=== PATIENT | male | born 1955 | race Caucasian/White ===

== ENCOUNTER → 2018-06-24 10:33 | Outpatient (CLI) | payer OTHER, SELFPAY ==
[2018-06-23 12:29] VITALS: BMI 48.1
[2018-06-24 12:43] LABS: T4 Total, Thyroxin 11.6 ug/dL (4.5-12.1)
== END ==
PROVIDERS: Family Provider Nurse Practitioner; PCP Nurse Practitioner; Referring Provider Internal Medicine Cardiovascular Disease; Visit Provider Internal Medicine Cardiovascular Disease
DX: R00.1 Bradycardia, unspecified (principal)
CPT/HCPCS: 36415; 84436; 84443

== ENCOUNTER → 2018-06-25 13:51 | Outpatient (CLI) | payer OTHER, SELFPAY ==
[2018-06-23 12:29] VITALS: BMI 48.1
== END ==
PROVIDERS: Family Provider Nurse Practitioner; PCP Nurse Practitioner; Referring Provider Internal Medicine Cardiovascular Disease; Visit Provider Internal Medicine Cardiovascular Disease
DX: R00.1 Bradycardia, unspecified (principal)
CPT/HCPCS: 93225; 93226

== ENCOUNTER → 2018-07-09 12:52 | Outpatient (CLI) | payer OTHER, SELFPAY ==
[2018-06-23 12:29] VITALS: BMI 48.1
--- NOTE | 2018-07-09 12:56 | ECHOD_ITS ---
Reason For Study: Arrhythmia Procedure This was a 2D Doppler, Color Flow transthoracic echocardiogram. Contrast injection was performed. Exam performed in department. Left Ventricle Normal LV size. Left ventricular systolic function is normal. The estimated ejection fraction is 65 %. Stage 1 diastolic dysfunction. No regional wall motion abnormalities noted. Right Ventricle Normal RV size. Normal systolic function. Atria The left atrium is moderately enlarged. Normal right atrium. Mitral Valve Normal mitral valve. Tricuspid Valve Normal tricuspid valve. Unable to estimate RV systolic pressure due to inadequate jet, pulmonary artery pressure probably normal. Aortic Valve Normal aortic valve. Pulmonic Valve The pulmonic valve is not well visualized. Great Vessels Normal aortic root. The pulmonary artery is normal size. Normal inferior vena cava. Pericardium/Pleural No pericardial effusion. Medication 22 gauge I.V. with prn adaptor inserted into right arm. Diluted definity 1.5ml given slow IV push to enhance endocardial definition. MMode/2D Measurements & Calculations LVIDd: 5.3 cm IVSd: 0.97 cm Ao root diam: 3.9 cm LVIDs: 3.2 cm LVPWd: 1.2 cm FS: 38.9 % LAV(MOD-bp): 71.8 ml LA A4 area: 27.5 cm2 RA A4 area: 14.5 cm2 LAV(MOD-bp) Indexed: 25.2 ml/m2 LAV(MOD-sp2): 53.0 ml LAV(MOD-sp4): 91.4 ml Time Measurements MV dec time: 0.27 sec Doppler Measurements & Calculations MV E max cornelius: 61.4 cm/sec Lat Peak E' Cornelius: 7.9 cm/sec Med Peak E' Cornelius: 6.1 cm/sec MV A max cornelius: 79.5 cm/sec E/E' lat: 7.8 E/E' med: 10.1 MV E/A: 0.77 MV V2 max: 93.4 cm/sec MV P1/2t max cornelius: 69.3 cm/sec Ao V2 max: 136.8 cm/sec MV max P.5 mmHg MV P1/2t: 118.6 msec Ao max P.5 mmHg MV V2 mean: 44.7 cm/sec MV dec slope: 171.2 cm/sec2 MV mean P.96 mmHg MV V2 VTI: 30.6 cm MVA(P1/2t): 1.9 cm2 LV V1 max: 107.4 cm/sec PA V2 max: 114.6 cm/sec LV V1 max P.6 mmHg Interpretation Summary Normal LV size. Left ventricular systolic function is normal. The estimated ejection fraction is 65 %. Stage 1 diastolic dysfunction. Contrast injection was performed. Ordering Physician: Roel Ocasio Referring Physician: Roel Ocasio Performed By: Scar Oliva RCS
== END ==
PROVIDERS: Family Provider Nurse Practitioner; PCP Nurse Practitioner; Referring Provider Internal Medicine Cardiovascular Disease; Visit Provider Internal Medicine Cardiovascular Disease
DX: R00.1 Bradycardia, unspecified (principal); I10 Essential (primary) hypertension
CPT/HCPCS: 93306; Q9957; C8929

== ENCOUNTER 2018-11-08 17:06 | Emergency (ER) | payer OTHER, SELFPAY ==
[2018-06-23 12:29] VITALS: BMI 48.1
[2018-11-08 17:07] VITALS: BP 165/99; PULSE 61; RESP 18; TEMP 36.3; O2SAT 97; BMI 26.8
[2018-11-08 17:20] VITALS: BP 152/90; PULSE 53; RESP 20; O2SAT 98
--- NOTE | 2018-11-08 17:31 | ED.VIS.GEN ---
History of Present Illness Chief Complaint: Lower Extremity Injury Detail of Chief Complaint: Left leg swelling Informant: Patient Onset: Days Narrative: Patient presents after scraping his left freire a couple days ago at a picnic. The anterior left lower leg now has some erythema and is painful. Leg is swollen. Patient was seen by urgent care at [facility] and advised to come be ruled out for a blood clot. He denies chest pain or shortness of breath. No prior history of clotting disorder. Past Medical History - Allergies and Home Meds Allergies/Adverse Reactions: Allergies doxazosin [From Cardura] Allergy (Intermediate, Verified 11/08/18 17:07) tired levofloxacin [From Levaquin] Allergy (Intermediate, Verified 11/08/18 17:07) tendonitis metoprolol [From Lopressor] Allergy (Intermediate, Verified 11/08/18 17:07) bradycardia amlodipine Adverse Reaction (Verified 11/08/18 17:07) edema Primary Care Physician: Winsome Jesus NP-C [Primary Care Provider] - Prior records reviewed: Yes Past Medical History: - - Reviewed Surgical History: - Smoking Status: Never smoker - Family History Maternal Family History: Family History (Last Reviewed 06/23/18 @ 14:48 by Roel Ocasio MD) Mother Heart disease Other Diabetes Hypertension Family History: Reports: Diabetes, Heart Disease, Hypertension Paternal Family History: Family History (Last Reviewed 06/23/18 @ 14:48 by Roel Ocasio MD) Mother Heart disease Other Diabetes Hypertension Family History: Reports: Diabetes, Heart Disease, Hypertension Review of Systems General: Denies: Chills, Fever ENT: Denies: Bilateral ear pain, Sore throat Cardiovascular: Denies: Chest pain Respiratory: Denies: Dyspnea Gastrointestinal: Denies: Abdominal pain, Nausea, Vomiting Musculoskeletal: Reports: Myalgias, Arthralgias, Extremity Pain Skin: Reports: Rash Neurological: Denies: Headache Hematologic: Denies: Easy bruising, Easy bleeding Allergy: Denies: Uticaria Physical Exam Vital Signs/Narrative: Vital Signs Temp Pulse Resp BP Pulse Ox 11/08/18 17:20 53 L 20 H 152/90 H 98 11/08/18 17:07 97.3 F L 61 18 165/99 H 97 Inital Vital Signs reviewed: Yes General: Well nourished, Well developed Head: Normocephalic ENT: Moist mucous membranes Cardiovascular: Bradycardia Respiratory: No distress, CTA bilaterally Abdomen: Soft, Nontender Extremities: - - 3+ edema to the bilateral lower extremities. Anterior left lower leg is mildly erythematous with the appearance of distended capillaries. No open wounds are noted. Strong distal pulses are noted. Neurological: Alert, Oriented x3, Normal Strength Psychological: Normal affect Diagnostic/Tx/Re-eval - Medical Decision Making Venous ultrasound of the left leg reveals no evidence of DVT. Patient does have erythema and warmth over the anterior freire. He will be treated with a course of doxycycline for cellulitis. ED Disposition - Plan for ED Patient: Disposition: Home or Assisted Living Diagnosis: Cellulitis Instructions: Cellulitis Prescriptions: Doxycycline 100 mg PO BID #20 capsule Referrals: Winsome Jesus NP-C [Primary Care Provider] - 1 Week
--- NOTE | 2018-11-08 18:01 | US_ITS ---
STUDY: VENOUS DOPPLER ULTRASOUND - LEFT LOWER EXTREMITY REASON FOR EXAM: Male, 63 years old. Bumped left calf TECHNIQUE: Ultrasound evaluation of the deep vein system to include hancock-scale imaging and compression was performed. Hancock-scale imaging and Doppler sonographic evaluation, including duplex spectral analysis and qualitative color flow sonography, was performed. COMPARISON: None. FINDINGS: Common Femoral Vein: Normal compression, spontaneity and augmentation. Normal color Doppler. Common Femoral Vein/Greater Saphenous Junction: Normal compression, spontaneity and augmentation. Normal color Doppler. Deep Femoral Vein: Normal compression, spontaneity and augmentation. Normal color Doppler. Femoral Proximal: Normal compression, spontaneity and augmentation. Normal color Doppler. Femoral Middle: Normal compression, spontaneity and augmentation. Normal color Doppler. Femoral Distal: Normal compression, spontaneity and augmentation. Normal color Doppler. Popliteal Vein: Normal compression, spontaneity and augmentation. Normal color Doppler. Posterior Tibial Vein: Normal compression, spontaneity and augmentation. Normal color Doppler. Peroneal Vein: Normal compression, spontaneity and augmentation. Normal color Doppler. US/Venous Duplex Imag/Limited/Uni IMPRESSION: Normal venous Doppler ultrasound of the lower extremity. Electronically Signed: Parker Pederson, at 18:43 EDT Tel , Service support ,
[2018-11-08 18:47] VITALS: BP 150/91; PULSE 89; RESP 16; O2SAT 98
== END 2018-11-08 18:49 | disposition home or self-care (01) ==
PROVIDERS: Emergency Provider Emergency Medicine; Family Provider Nurse Practitioner; PCP Nurse Practitioner
DX: L03.90 Cellulitis, unspecified (principal); Z88.1 Allergy status to other antibiotic agents
CPT/HCPCS: 93971; 99282

== ENCOUNTER → 2019-02-03 10:59 | Outpatient (CLI) | payer OTHER, SELFPAY ==
[2019-02-03 08:44] VITALS: BMI 50.3
[2019-02-03 11:42] LABS: Absolute Lymphocyte Count 2.93 X10^3/uL (0.83-4.51); Absolute Neutrophil Count 5.3 X10^3/uL (2.0-7.7); Basophil# 0.09 X10^3/uL; Eosinophil# 0.22 X10^3/uL; Eosinophils% 2.4 % (0-5); Hemoglobin 14.8 g/dL (13.0-16.5); Lymphocyte # 2.93 X10^3/ul (4.0); Lymphocyte % 31.6 % (19-41); Mean Corp Hgb Conc 32.2 g/dL (32-36); Mean Corpuscular Hgb 26.9 pg (27.0-32.0); Mean Corpuscular Volume 83.5 fL (80-94); Mean Platelet Vol. 10.3 fl (6.2-12.0); Monocyte# 0.69 X10^3/uL; Monocyte% 7.5 % (0-10); NRBC Flagged by Analyzer 0 % (0-5); Neutrophil # 5.29 X10^3/uL (2.7-7.7); Neutrophil % 57.1 % (47-70); Platelet Count 197 K/mm3 (150-450); RBC Distribution Width SD 42.8 fl (35.1-43.9); Red Blood Count 5.51 M/mm3 (4.6-6.2); White Blood Count 9.3 K/mm3 (4.4-11.0)
[2019-02-03 12:05] LABS: Anion Gap 7 (5-15); BUN 18 mg/dL (7-18); BUN/Creat Ratio 18.1 RATIO (10-20); Chloride 104 mmol/L (98-107); EST Glomerular Filtration Rate 80 mL/min (>60); Est Glom Filt Rate - Afr Amer 97 mL/min (>60); Glucose 201 mg/dL (74-106); Potassium 4.1 mmol/L (3.5-5.1); Sodium Level 139 mmol/L (136-145)
== END ==
PROVIDERS: Family Provider Nurse Practitioner; PCP Nurse Practitioner; Referring Provider Internal Medicine Cardiovascular Disease; Visit Provider Internal Medicine Cardiovascular Disease
DX: I10 Essential (primary) hypertension (principal); R06.00 Dyspnea, unspecified
CPT/HCPCS: 36415; 80048; 83880; 85025

== ENCOUNTER 2021-09-12 12:54 | Outpatient (CLI) | payer MEDICARE, OTHER, SELFPAY ==
--- NOTE | 2021-09-12 12:58 | ECHOD_ITS ---
Reason For Study: AFIB Procedure This was a 2D Doppler, Color Flow transthoracic echocardiogram. The study was technically difficult. Contrast injection was performed. Exam performed in department. Left Ventricle Normal LV size. Left ventricular systolic function is normal. The estimated ejection fraction is 60 %. No regional wall motion abnormalities noted. Right Ventricle Normal RV size. Normal systolic function. Great Vessels Normal aortic root. The pulmonary artery is normal size. Pericardium/Pleural No pericardial effusion. Medication 22 gauge I.V. with prn adaptor inserted into right arm. Diluted definity 1.5ml given slow IV push to enhance endocardial definition. MMode/2D Measurements & Calculations RVDd: 4.0 cm Ao root diam: 3.6 cm LAV(MOD-sp4): 80.8 ml SV(MOD-sp4): 84.7 ml LVAd ap4: 48.7 cm2 LVAd ap2: 28.0 cm2 LVLd ap4: 10.2 cm LVLd ap2: 6.3 cm EDV(MOD-sp4): 197.3 ml EDV(MOD-sp2): 101.7 ml EDV(sp4-el): 197.4 ml EDV(sp2-el): 106.3 ml LVAs ap4: 35.2 cm2 LVLs ap4: 9.1 cm ESV(MOD-sp4): 112.7 ml ESV(sp4-el): 115.7 ml EF(MOD-sp4): 42.9 % EF(sp4-el): 41.4 % SV(sp4-el): 81.7 ml LA A4 area: 24.6 cm2 LA dimension(2D): 5.3 cm RA A4 area: 26.0 cm2 Doppler Measurements & Calculations MV E max caitlin: 104.9 cm/sec Ao V2 max: 93.8 cm/sec LV V1 max: 81.4 cm/sec MV A max caitlin: 57.7 cm/sec Ao max P.5 mmHg LV V1 max P.7 mmHg MV E/A: 1.8 PA V2 max: 93.4 cm/sec ECHO/Echo Complete W/ Contrast Interpretation Summary Normal LV size. Left ventricular systolic function is normal. The estimated ejection fraction is 60 %. Contrast injection was performed. The study was technically limited. Ordering Physician: Princess Hagen Referring Physician: Princess Hagen Performed By: Karen Shah RCS
== END 2021-09-12 23:59 | disposition home or self-care (01) ==
PROVIDERS: PCP Internal Medicine; Referring Provider Internal Medicine; Visit Provider Internal Medicine
DX: I48.91 Unspecified atrial fibrillation (principal); R06.02 Shortness of breath
CPT/HCPCS: 93306; Q9957; A4216; C8929

== ENCOUNTER 2021-09-16 13:11 | Outpatient (RCR) | payer MEDICARE, OTHER, SELFPAY ==
[2021-09-16 13:39] LABS: International Normalized Ratio 1.2; Prothrombin Time (Protime)PT. 14.8 SECONDS (11.7-14.9)
== END 2021-09-16 23:59 | disposition home or self-care (01) ==
LOC: LAB 13:11
PROVIDERS: PCP Internal Medicine; Referring Provider Physician Assistant Medical; Visit Provider Physician Assistant Medical
DX: I48.19 Other persistent atrial fibrillation (principal); Z79.01 Long term (current) use of anticoagulants
CPT/HCPCS: 36415; 85610

== ENCOUNTER → 2021-09-20 | Outpatient (CLI) | payer MEDICARE, OTHER, SELFPAY ==
--- NOTE | 2021-09-20 09:05 | STRESSREP ---
Stress Test Report Pharmacologic myocardial perfusion stress test. 66-year-old male with a history of atrial fibrillation. Stress protocol: Resting EKG demonstrates atrial fibrillation with a rate of 85 bpm normal intervals are noted. 0.4 mg of regadenoson was infused per usual protocol followed by rapid intravenous saline flush injection continuous EKG monitoring was performed. At rest there were no ST or T wave changes noted to suggest abnormal flow reserve and at peak infusion nonspecific ST changes were noted with did not meet the criteria for ischemia. No clinical angina was noted. The peak blood pressure was 164/94 mmHg. Myocardial perfusion protocol. 14.9 mCi of technetium 99m sestamibi was injected at rest. 0.4 mg of regadenoson was infused per usual protocol. At peak infusion 44.8 mCi of technetium 99m sestamibi was injected stress images were obtained stress and rest images were reconstructed and compared in the short axis vertical long and horizontal long axis. Gated images were also obtained. Perfusion SPECT analysis: Review of the stress images demonstrate normal uptake of tracer noted in all areas of the myocardium. The resting images similarly demonstrate normal uptake of tracer noted in all areas of the myocardium. No areas of reversibility are noted to suggest ischemia and no previous infarct is noted. Gated SPECT analysis: The gated ejection fraction is 55%. Conclusion: Normal pharmacologic myocardial perfusion stress test. Preserved ejection fraction.
== END | disposition home or self-care (01) ==
LOC: CVS 06:35
PROVIDERS: PCP Internal Medicine; Referring Provider Internal Medicine; Visit Provider Internal Medicine
DX: I48.91 Unspecified atrial fibrillation (principal); R94.31 Abnormal electrocardiogram [ECG] [EKG]
CPT/HCPCS: 78452; 93017; A9500; A4216; J2785

== ENCOUNTER 2021-10-17 16:16 | Outpatient (RCR) | payer MEDICARE, OTHER, SELFPAY ==
[2021-09-25 17:12] LABS: International Normalized Ratio 2.4; Prothrombin Time (Protime)PT. 25.4 SECONDS (11.7-14.9)
[2021-10-02 10:03] LABS: International Normalized Ratio 3.6
[2021-10-11 16:19] LABS: International Normalized Ratio 3.6; Prothrombin Time (Protime)PT. 35.6 SECONDS (11.7-14.9)
[2021-10-17 17:04] LABS: International Normalized Ratio 3.3; Prothrombin Time (Protime)PT. 33.5 SECONDS (11.7-14.9)
== END 2021-10-20 01:57 | disposition home or self-care (01) ==
LOC: LAB 16:16
PROVIDERS: Internal Medicine Cardiovascular Disease; PCP Internal Medicine; Referring Provider Physician Assistant Medical; Visit Provider Physician Assistant Medical
DX: I48.19 Other persistent atrial fibrillation (principal); Z79.01 Long term (current) use of anticoagulants
CPT/HCPCS: 36415; 85610

== ENCOUNTER 2021-10-30 10:11 | Day surgery (SDC) | payer MEDICARE, OTHER, SELFPAY ==
[2021-10-29 08:24] VITALS: BMI 49.1
[2021-10-30 10:47] LABS: International Normalized Ratio 2.5; Prothrombin Time (Protime)PT. 26.4 SECONDS (11.7-14.9)
[2021-10-30 10:52] LABS: Anion Gap 8 (5-15); BUN 16 mg/dL (7-18); BUN/Creat Ratio 16.6 RATIO (10-20); Chloride 107 mmol/L (98-107); Creatinine, Serum 0.96 mg/dL (0.70-1.30); EST Glomerular Filtration Rate 83 mL/min (>60); Est Glom Filt Rate - Afr Amer 100 mL/min (>60); Estimated Creatinine Clearance 90.47 ml/min; Glucose 147 mg/dL (74-106); PSA,Total - Annual Screen 4.36 ng/mL (0.00-4.00); Potassium 3.9 mmol/L (3.5-5.1); Sodium Level 141 mmol/L (136-145)
[2021-10-30 13:16] LABS: Cholesterol 159 mg/dL (200); High Density Lipoprotein 38 mg/dL; Triglycerides 173 mg/dL; Very Low Density Lipoprotein 35 mg/dL (5-40)
--- NOTE | 2021-10-30 13:16 | PCM.OP.BLANK ---
Problems Associated Problem List Diagnoses (1) Persistent atrial fibrillation: Operative Report Date of Procedure: 10/30/21 DC cardioversion. Indication: Persistent atrial fibrillation. 66-year-old male with a history of persistent atrial fibrillation symptomatic. Informed consent was obtained the patient was brought to the cardiac catheterization in the nonsedated state. Patient was seen by Dr. Quinones of the critical care division. Anterior-posterior pads were applied. The patient was then administered 130 mg of intravenous propofol. Appropriate conscious sedation was induced. 300 J of synchronized biphasic DC cardioversion energy were applied with prompt reversal to sinus rhythm. Patient tolerated the procedure well. Conclusion: Successful DC cardioversion from atrial fibrillation to sinus rhythm. Follow-up per office protocol.
--- NOTE | 2021-10-30 13:18 | PRO.PCM_ITS ---
Procedure Report Date of Procedure: 10/30/21 CONSCIOUS SEDATION REPORT DATE OF SERVICE: October 30, 2021 BRIEF HISTORY OF PRESENT ILLNESS: The patient is a 66-year-old male who presented to [facility] for an elective outpatient cardioversion due to underlying atrial fibrillation. The patient denies any prior anesthetic complications. His last surface echocardiogram demonstrated an ejection fraction of approximately 60%. He is anticoagulated on Coumadin with an INR today of 2.5. The patient does have a known history of obstructive sleep apnea and reports compliance with the use of nocturnal CPAP therapy. In addition, he does have a history of asthma as well, which is currently controlled with outpatient inhalers. PHYSICAL EXAMINATION: VITAL SIGNS: Reviewed and were acceptable. GENERAL: The patient is a morbidly obese male, in no apparent distress, speaking in full sentences. HEENT: Normocephalic, atraumatic. Casimiro membranes are moist and pink. Good mouth opening noted. Trachea is midline. MPIII CHEST: S1, S2 irregularly irregular. No murmurs, rubs or gallops were noted. LUNGS: Clear to auscultation bilaterally without appreciable wheezes, rales or rhonchi. ABDOMEN: Soft, nontender, nondistended. Positive bowel sounds. EXTREMITIES: There is no clubbing, cyanosis or edema. ASA Class: II DESCRIPTION OF PROCEDURE: After confirmation of informed consent, the patient's anesthesia plan was reviewed in detail. Propofol was chosen. Risks and benefits were reviewed and the patient agreed to proceed. At 1304, the patient was given his first bolus of propofol. In total, the patient required 130 mg of propofol to achieve an appropriate level of sedation, after which time he was given a 300 J synchronized cardioversion by Dr. Ocasio at the bedside. This was successful in achieving normal sinus rhythm. The patient was monitored until 1319, at which time he reached his baseline mental status and function. The patient tolerated the procedure well. COMPLICATIONS: None ESTIMATED BLOOD LOSS: None RECOMMENDATIONS: Okay to recover in usual fashion. Procedures Pulmonary 9xxxx: [id number] Con Sedation
== END 2021-10-30 14:23 | disposition home or self-care (01) ==
LOC: CLSP 10:16
PROVIDERS: Physician Assistant Medical; PCP Internal Medicine; Referring Provider Internal Medicine Cardiovascular Disease; Visit Provider Internal Medicine Cardiovascular Disease
DX: I48.19 Other persistent atrial fibrillation (principal); E11.9 Type 2 diabetes mellitus without complications; G47.33 Obstructive sleep apnea (adult) (pediatric); I10 Essential (primary) hypertension; K21.9 Gastro-esophageal reflux disease without esophagitis; Z82.49 Family history of ischemic heart disease and other diseases of the circulatory system; R53.83 Other fatigue; R06.02 Shortness of breath; R42 Dizziness and giddiness; Z12.5 Encounter for screening for malignant neoplasm of prostate; E78.00 Pure hypercholesterolemia, unspecified
CPT/HCPCS: 36415; 80048; 80061; 83880; 84153; 85610; 92960; 93005; J7040; G0103

== ENCOUNTER 2021-11-14 13:28 | Outpatient (RCR) | payer MEDICARE, OTHER, SELFPAY ==
[2021-10-23 14:45] LABS: International Normalized Ratio 2.9; Prothrombin Time (Protime)PT. 29.6 SECONDS (11.7-14.9)
[2021-11-14 14:58] LABS: International Normalized Ratio 2.4; Prothrombin Time (Protime)PT. 25.5 SECONDS (11.7-14.9)
== END 2021-11-14 18:00 | disposition home or self-care (01) ==
LOC: LAB 13:28
PROVIDERS: PCP Internal Medicine; Referring Provider Physician Assistant Medical; Visit Provider Physician Assistant Medical
DX: I48.19 Other persistent atrial fibrillation (principal); Z79.01 Long term (current) use of anticoagulants
CPT/HCPCS: 36415; 85610

== ENCOUNTER 2021-11-29 10:10 | Outpatient (RCR) | payer MEDICARE, OTHER, SELFPAY ==
[2021-11-29 11:37] LABS: International Normalized Ratio 2.2; Prothrombin Time (Protime)PT. 24.2 SECONDS (11.7-14.9)
== END 2021-11-29 18:00 | disposition home or self-care (01) ==
LOC: LAB 10:10
PROVIDERS: PCP Internal Medicine; Referring Provider Physician Assistant Medical; Visit Provider Physician Assistant Medical
DX: I48.19 Other persistent atrial fibrillation (principal); Z79.01 Long term (current) use of anticoagulants
CPT/HCPCS: 36415; 85610

== ENCOUNTER → 2021-12-17 | Outpatient (CLI) | payer MEDICARE, OTHER, SELFPAY ==
--- NOTE | 2021-12-17 13:50 | RAD_ITS ---
STUDY: X-RAY - LUMBAR SPINE REASON FOR EXAM: Male, 66 years old. Back pain. TECHNIQUE: 5 view(s) of the lumbar spine were obtained. COMPARISON: 01/16/2016. FINDINGS: Osteopenia. Normal lumbar lordosis. There is no substantial scoliosis. There is a normal alignment of the vertebrae. Stable diffuse facet sclerosis. Diffuse intervertebral disc space narrowing most marked at L3-4, L4-5 and L5-S1, relatively unchanged from prior study. Vascular calcification. Phleboliths. RAD/L/S Spine Min 4 Views IMPRESSION: Stable osteopenia with diffuse [id number] lumbosacral spondylosis. No acute abnormality, evidence of erosive changes or fusion. Electronically Signed: Chao Patel, at 9:47 EDT ,
== END | disposition home or self-care (01) ==
LOC: RAD 13:36
PROVIDERS: PCP Nurse Practitioner Family; Referring Provider Nurse Practitioner Family; Visit Provider Nurse Practitioner Family
DX: M46.96 Unspecified inflammatory spondylopathy, lumbar region (principal); M51.37 Other intervertebral disc degeneration, lumbosacral region; M54.17 Radiculopathy, lumbosacral region; M47.817 Spondylosis without myelopathy or radiculopathy, lumbosacral region
CPT/HCPCS: 72110

== ENCOUNTER 2021-12-23 10:15 | Day surgery (SDC) | payer MEDICARE, OTHER, SELFPAY ==
[2021-12-23] VITALS (7 sets, daily range): BP systolic 130–157; BP diastolic 67–93; PULSE 62–67; RESP 15–16; TEMP 36.5–36.7; O2SAT 93–97; BMI 47.7
--- NOTE | 2021-12-23 10:45 | RAD_ITS ---
PROCEDURE: Caudal block. DATE OF EXAMINATION: 12/23/2021. INDICATION: Male, 66 years old. Chronic low back pain. FLUOROSCOPY TIME (if supplied): (14 seconds) minutes/seconds. 2 images were submitted. RAD/Fluor Guidance for Spine Inj IMPRESSION: Intraoperative imaging provided for caudal block. Electronically Signed: Gurinder Serna MD at 9:33 EDT ,
[2021-12-23] MEDS: Lactated Ringers 1,000 ML 15 ML IV (10:52)
[2021-12-23 11:16] LABS: Bedside Glucose 138 mg/dL (74-106)
[2021-12-23] MEDS: Lidocaine 1% (30 ml sdv) 30 ML Vial (11:30)
[2021-12-23] MEDS: 0.9% Normal Saline (Pres. free 10 ML Vial (11:30)
--- NOTE | 2021-12-23 11:33 | OP.PCM_ITS ---
Report of Operation Date of Procedure: 12/23/21 Pre-Operative Diagnosis: Lumbosacral radiculopathy, lumbosacral degenerative di sc disease, lumbosacral spinal stenosis Post-Operative Diagnosis: Lumbosacral radiculopathy, lumbosacral degenerative disc disease, lumbosacral spinal stenosis Surgery/Procedure Performed:: Caudal epidural steroid injection under fluoroscopic guidance Type of Anesthesia: MAC Estimated Blood Loss (mL): Minimal Description of Procedure: DESCRIPTION OF PROCEDURE: History and physical of today was reviewed. Risks and benefits of the procedure were explained. The patient understood and agreed to proceed. Informed consent was obtained. IV inserted per routine protocol. The patient was taken to the operating room and placed in the prone position with a pillow positioned underneath the abdomen. The lower back and tailbone area was prepped and draped in a sterile fashion using iodine x3. Under fluoroscopy guidance on a lateral view, the caudal space was identified. The skin and subcutaneous tissue was anesthetized with approximately 3 mL of 1% lidocaine using a 25-gauge regular needle. Under direct visualization with fluoroscopy, using a 22-gauge 3-1/2-inch spinal needle, the needle was advanced via the skin through the sacral hiatus. The tip of the needle was passed through the sacrococcygeal ligament and advanced to approximately S4 area. After negative aspiration of blood or CSF, a total of 3 mL of contrast was injected to confirm correct placement of the needle as well as cephalad spread. The spread was followed to approximately L5 area. After confirmation on AP as well as lateral view and repeated negative aspiration, a total of 15 mL of preservative-free 0.125% Marcaine with 80 mg of Depo-Medrol was injected easily. The needle was then removed intact. The patient experienced no sign or symptoms of intrathecal or intravascular injection. The patient experienced no paresthesia. The procedure was completed without any apparent difficulty or any complications. The patient appeared to tolerate it well. ASSESSMENT AND PLAN: This is a 66-year-old male with lumbosacral radiculopathy, lumbosacral degenerative disc disease, lumbosacral spinal stenosis status post caudal epidural steroid injection, patient will continue his current medications, patient will follow in approximately 2 weeks for reevaluation. Complications None
[2021-12-23 20:44] LABS: INR Fingerstick 1.2; Prothrombin Time Fingerstick 14.4 SEC (11.7-14.9)
[2021-12-25 08:35] LABS: INR Fingerstick 1.2; Prothrombin Time Fingerstick 14.4 SEC (11.7-14.9)
== END 2021-12-23 12:26 | disposition home or self-care (01) ==
LOC: SDC 10:19 → AC 10:21
PROVIDERS: PCP Nurse Practitioner Family; Referring Provider Anesthesiology Pain Medicine; Visit Provider Anesthesiology Pain Medicine
PROC: 3E0S3BZ Introduction of Anesthetic Agent into Epidural Space, Percutaneous Approach (ICD-10-PCS; CPT 62282; principal; 2021-12-23 11:40)
DX: M47.817 Spondylosis without myelopathy or radiculopathy, lumbosacral region (principal); M46.96 Unspecified inflammatory spondylopathy, lumbar region; I48.91 Unspecified atrial fibrillation; E11.9 Type 2 diabetes mellitus without complications; M48.07 Spinal stenosis, lumbosacral region; M51.17 Intervertebral disc disorders with radiculopathy, lumbosacral region; G47.33 Obstructive sleep apnea (adult) (pediatric); K21.9 Gastro-esophageal reflux disease without esophagitis; I10 Essential (primary) hypertension; E78.00 Pure hypercholesterolemia, unspecified; M51.37 Other intervertebral disc degeneration, lumbosacral region; Z79.899 Other long term (current) drug therapy; Z79.01 Long term (current) use of anticoagulants
CPT/HCPCS: 62323; 36416; 64483; 77003; 82962; 85610; J7120; J3490

== ENCOUNTER 2022-01-01 10:00 | Outpatient (RCR) | payer MEDICARE, OTHER, SELFPAY ==
--- NOTE | 2021-11-11 18:15 | HP.PTEVAL_ITS ---
Patient's Visit Information JONO PENA is a 66 year old M referred to Physical Therapy by Dr. Roel Ocasio MD with a diagnosis of SPINAL SENOSIS ,DORSALGIA ,CHRONIC PAIN. Date of Evaluation: 11/11/21 Physical Therapist: Serjio Gonzalez, PT, Cert MDT, OCS - Visit Plan Frequency: 2x /Week Duration: 4 Weeks Plan: PT INTERVETIONS LE FLEXABILITY ,DLS ,POSTURAL EX'S ,LUMBAR ROM AND BLE STRENGTHENING - Subjective This 66 y/o male presents to physical therapy with back pain . Patient has had lumbar pain for many years. Patient has had h/o HNP lumbar spine. Seen DR jenkins. Patient ~ 3weeks ago went to [facility] thus had cardioversion and blood thinners prior to procedure . Thus patient states cant take ibuprofrin. Patient has h/o hard work at [employer] . Retired from [employer]. Located LS lateral hip and has isolated knee pain. Description as arthritis ache Aggravating standing < 15mins ,walking affects ADL's and housework tasks. Alleviating factors sitting. Bowel/bladder -. Coughing/sneezing -. C/O paresthesia lateral leg . Patient assist with spouse with ADLS'. Patient sleeps with bi -pap. Patient condition affects QOL and function. SOCIAL: . VOCATION: retired - Pain Bilateral Back Pain Intensity (Out of 10): 5 Pain Intensity Range: 10 Bilateral Buttocks Pain Intensity (Out of 10): 5 Pain Intensity Range: 10 - Objective POSTURE: mild forward posture hip knee slightly flexed. GAIT: ambulates with mild forward posture reciprocal pattern. SYMMTRIES: align. PALAPTION: unremarkable. AROM: knee supine flexion 5 -115 degrees supine flexion ,IR hip 0 degrees ,hip flexion 100 degrees. FLEXABILITY: hams mod tight. MMT: quads/hams 4/5,hip flexion 4-/5 ,ankle 4/5 - Special Tests L/S Slump test left side: Negative L/S Slump test right side: Negative L/S Left Straight Leg Raise: Negative L/S Right Straight Leg Raise: Negative Lumbar Standing: Flexion - Mechanical Response: No effect Lumbar Standing: Flexion - Symptoms During Testing: Increases Lumbar Standing: Flexion - Symptoms After Testing: No worse Lumbar Standing: Extension - Mechanical Response: No effect Lumbar Standing: Extension - Symptoms During Testing: Increases Lumbar Standing: Extension - Symptoms After Testing: No worse Lumbar Standing: Right Side Glides - Mechanical Response: No effect Lumbar Standing: Right Side [place] - Symptoms During Testing: No effect Lumbar Standing: Right Side [place] - Symptoms After Testing: No effect Lumbar Standing: Left Side [place] - Mechanical Response: No effect Lumbar Standing: Left Side [place] - Symptoms During Testing: No effect Lumbar Standing: Left Side [place] - Symptoms After Testing: No effect - Balance/Special Test Scores Oswestry Low Back Score: 24 - Goals Goal 1:: I with HEP for back pain Goal Time Frame: 4-6 Weeks Goal 2:: Patient to improve posture/body mechanics for ADLS' 80% of the time Goal Time Frame: 4-6 Weeks Goal 3:: Patient to demonstrate 50% improvement with decrease pain and improved function with ADLS with standing Goal Time Frame: 4-6 Weeks Goal 4:: Patient to improve lumbar ROM for function of recovery to tie shoes Goal Time Frame: 4-6 Weeks Goal 5:: Patient to improve back oswestry score by 5 points to improve QOL Goal Time Frame: 4-6 Weeks - Rehabilitation Potential Physical Therapy Diagnosis: This patient has lumbar pain with stenosis pain worse with walking/standing ,along with positioning and motion testing thus benefit from skilled PT Rehabilitation Potential: Good - Anticipated Interventions Patient/Client Instruction: Educate patient on: Condition, Plan of Care For the Purpose of:: To decrease pain, To increase ROM, To improve muscle perf ormance and motor function, To improve ability to perform ADL's, To increase tolerance to activity/condition/position, To improve ability of physical actions for home/community/work/leisure, To improve gait and locomotor functions, To increase flexibility/ROM, To improve endurance, To prevent re-injury Therapeutic Exercise to Include: Strength training, Balance training, Active ROM, Dynamic Lumbar Stabilization For the Purpose of:: To decrease pain, To improve nutrient delivery to tissue, To improve muscle performance and motor function, To increase tolerance to activity/condition/position, To improve ability of physical actions for home/community/work/leisure, To improve health of tissue, To decrease soft tissue restriction, To increase flexibility/ROM, To prevent re-injury Thank you for the opportunity to evaluate your patient. For Medicare and Medicare HMO plans, please review the plan of care and approve it. It will need to be FAXED BACK to us at [phone] for Medicare purposes. For Medicare only, by signing this I certify the plan of care. Please let me know if there are questions or concerns regarding this plan of care. Physician Signature: Date:
--- NOTE | 2021-11-12 10:31 | HP.PTEVAL ---
Patient's Visit Information JONO PENA is a 66 year old M referred to Physical Therapy by Dr. Roel Ocasio MD with a diagnosis of SPINAL SENOSIS ,DORSALGIA ,CHRONIC PAIN. Date of Evaluation: 11/11/21 Physical Therapist: Serjio Gonzalez, PT, Cert MDT, OCS - Visit Plan Frequency: 2x /Week Duration: 4 Weeks Plan: PT INTERVETIONS LE FLEXABILITY ,DLS ,POSTURAL EX'S ,LUMBAR ROM AND BLE STRENGTHENING - Subjective This 66 y/o male presents to physical therapy with back pain . Patient has had lumbar pain for many years. Patient has had h/o HNP lumbar spine. Seen DR jenkins. Patient ~ 3weeks ago went to [facility] thus had cardioversion and blood thinners prior to procedure . Thus patient states cant take ibuprofrin. Patient has h/o hard work at [employer] . Retired from [employer]. Located LS lateral hip and has isolated knee pain. Description as arthritis ache Aggravating standing < 15mins ,walking affects ADL's and housework tasks. Alleviating factors sitting. Bowel/bladder -. Coughing/sneezing -. C/O paresthesia lateral leg . Patient assist with spouse with ADLS'. Patient sleeps with bi -pap. Patient condition affects QOL and function. SOCIAL: . VOCATION: retired - Pain Bilateral Back Pain Intensity (Out of 10): 5 Pain Intensity Range: 10 Bilateral Buttocks Pain Intensity (Out of 10): 5 Pain Intensity Range: 10 - Objective POSTURE: mild forward posture hip knee slightly flexed. GAIT: ambulates with mild forward posture reciprocal pattern. SYMMTRIES: align. PALAPTION: unremarkable. AROM: knee supine flexion 5 -115 degrees supine flexion ,IR hip 0 degrees ,hip flexion 100 degrees. FLEXABILITY: hams mod tight, piriformis mod tight. LUMBAR ROM: flexion mod loss ,extension mod/severe loss, side glides mod loss. MMT: quads/hams 4/5,hip flexion 4-/5 ,ankle 4/5 - Special Tests L/S Slump test left side: Negative L/S Slump test right side: Negative L/S Left Straight Leg Raise: Negative L/S Right Straight Leg Raise: Negative Lumbar Standing: Flexion - Mechanical Response: No effect Lumbar Standing: Flexion - Symptoms During Testing: Increases Lumbar Standing: Flexion - Symptoms After Testing: No worse Lumbar Standing: Extension - Mechanical Response: No effect Lumbar Standing: Extension - Symptoms During Testing: Increases Lumbar Standing: Extension - Symptoms After Testing: No worse Lumbar Standing: Right Side Glides - Mechanical Response: No effect Lumbar Standing: Right Side [place] - Symptoms During Testing: No effect Lumbar Standing: Right Side [place] - Symptoms After Testing: No effect Lumbar Standing: Left Side [place] - Mechanical Response: No effect Lumbar Standing: Left Side [place] - Symptoms During Testing: No effect Lumbar Standing: Left Side [place] - Symptoms After Testing: No effect - Balance/Special Test Scores Oswestry Low Back Score: 24 - Goals Goal 1:: I with HEP for back pain Goal Time Frame: 4-6 Weeks Goal 2:: Patient to improve posture/body mechanics for ADLS' 80% of the time Goal Time Frame: 4-6 Weeks Goal 3:: Patient to demonstrate 50% improvement with decrease pain and improved function with ADLS with standing Goal Time Frame: 4-6 Weeks Goal 4:: Patient to improve lumbar ROM for function of recovery to tie shoes Goal Time Frame: 4-6 Weeks Goal 5:: Patient to improve back oswestry score by 5 points to improve QOL Goal Time Frame: 4-6 Weeks - Rehabilitation Potential Physical Therapy Diagnosis: This patient has lumbar pain with stenosis pain worse with walking/standing ,along with positioning and motion testing thus benefit from skilled PT Rehabilitation Potential: Good - Anticipated Interventions Patient/Client Instruction: Educate patient on: Condition, Plan of Care For the Purpose of:: To decrease pain, To increase ROM, To improve muscle performance and motor function, To improve ability to perform ADL's, To increase tolerance to activity/condition/position, To improve ability of physical actions for home/community/work/leisure, To improve gait and locomotor functions, To increase flexibility/ROM, To improve endurance, To prevent re-injury Therapeutic Exercise to Include: Strength training, Balance training, Active ROM, Dynamic Lumbar Stabilization For the Purpose of:: To decrease pain, To improve nutrient delivery to tissue, To improve muscle performance and motor function, To increase tolerance to activity/condition/position, To improve ability of physical actions for home/community/work/leisure, To improve health of tissue, To decrease soft tissue restriction, To increase flexibility/ROM, To prevent re-injury Thank you for the opportunity to evaluate your patient. For Medicare and Medicare HMO plans, please review the plan of care and approve it. It will need to be FAXED BACK to us at [phone] for Medicare purposes. For Medicare only, by signing this I certify the plan of care. Please let me know if there are questions or concerns regarding this plan of care. Physician Signature: Date:
--- NOTE | 2022-02-21 08:26 | HP.PTDCSUM ---
It has been my pleasure to treat JONO PENA referred by Dr. Roel Ocasio MD, with the diagnosis of SPINAL SENOSIS ,DORSALGIA ,CHRONIC PAIN for a total of 9 visit(s). Discharge Date: 01/01/22 Please see the following information for a summary of their discharge status. Subjective: Patient had epidural injection ..which helped Bilateral Back Pain Intensity (Out of 10): 0 Bilateral Buttocks Pain Intensity (Out of 10): 0 % Improvement: 70 Objective/Function: POSTURE WFL. GAIT: reciprocal pattern. MMT: quads/hams 4/5,hip flexion 4-/5 ankle 4/5. LUMBAR ROM: FLEXION MOD LOSS,EXTENSION MOD LOSS Goal 1:: I with HEP for back pain Goal 2:: Patient to improve posture/body mechanics for ADLS' 80% of the time Goal 3:: Patient to demonstrate 50% improvement with decrease pain and improved function with ADLS with standing Goal 4:: Patient to improve lumbar ROM for function of recovery to tie shoes Goal 5:: Patient to improve back oswestry score by 5 points to improve QOL Plan: D/C Discharge Comments: HEP If there are questions or concerns regarding this patient's physical therapy, please feel free to call me at [phone]. Thank you for the referral of this patient. Sincerely, Serjio Gonzalez PT, Cert MDT, OCS Balance/Gait/Functional tests - Balance/Special Test Scores Oswestry Low Back Score: 7
== END 2022-01-01 19:00 | disposition home or self-care (01) ==
LOC: PT 10:00
PROVIDERS: PCP Internal Medicine; Referring Provider Internal Medicine Cardiovascular Disease; Visit Provider Internal Medicine Cardiovascular Disease
DX: M19.90 Unspecified osteoarthritis, unspecified site (principal); M48.00 Spinal stenosis, site unspecified; G89.29 Other chronic pain
CPT/HCPCS: 97110; 97162

== ENCOUNTER 2022-01-20 10:54 | Outpatient (RCR) | payer MEDICARE, OTHER, SELFPAY ==
[2021-12-30 16:43] LABS: International Normalized Ratio 1.5; Prothrombin Time (Protime)PT. 17.9 SECONDS (11.7-14.9)
[2022-01-06 11:49] LABS: International Normalized Ratio 2.2; Prothrombin Time (Protime)PT. 24.4 SECONDS (11.7-14.9)
[2022-01-20 11:57] LABS: International Normalized Ratio 2.4; Prothrombin Time (Protime)PT. 25.6 SECONDS (11.7-14.9)
== END 2022-01-20 18:00 | disposition home or self-care (01) ==
LOC: LAB 10:54
PROVIDERS: PCP Nurse Practitioner Family; Referring Provider Physician Assistant Medical; Visit Provider Physician Assistant Medical
DX: I48.19 Other persistent atrial fibrillation (principal); Z79.01 Long term (current) use of anticoagulants
CPT/HCPCS: 36415; 85610

== ENCOUNTER 2022-02-17 14:17 | Outpatient (RCR) | payer MEDICARE, OTHER, SELFPAY ==
[2022-02-17 15:13] LABS: International Normalized Ratio 2.2; Prothrombin Time (Protime)PT. 24.4 SECONDS (11.7-14.9)
== END 2022-02-19 18:00 | disposition home or self-care (01) ==
LOC: LAB 14:17
PROVIDERS: PCP Nurse Practitioner Family; Referring Provider Physician Assistant Medical; Visit Provider Physician Assistant Medical
DX: I48.19 Other persistent atrial fibrillation (principal); Z79.01 Long term (current) use of anticoagulants
CPT/HCPCS: 36415; 85610

== ENCOUNTER 2022-03-20 14:27 | Outpatient (RCR) | payer MEDICARE, OTHER, SELFPAY ==
[2022-03-20 15:52] LABS: International Normalized Ratio 2.2; Prothrombin Time (Protime)PT. 24.2 SECONDS (11.7-14.9)
== END 2022-03-20 18:00 | disposition home or self-care (01) ==
LOC: LAB 14:27
PROVIDERS: PCP Nurse Practitioner Family; Referring Provider Physician Assistant Medical; Visit Provider Physician Assistant Medical
DX: I48.19 Other persistent atrial fibrillation (principal); Z79.01 Long term (current) use of anticoagulants
CPT/HCPCS: 36415; 85610

== ENCOUNTER 2022-04-10 15:39 | Emergency (ER) | payer MEDICARE, OTHER, SELFPAY ==
[2022-04-10 15:41] VITALS: BP 189/97; PULSE 71; RESP 18; TEMP 36.6; O2SAT 99; BMI 47.5
--- NOTE | 2022-04-10 17:52 | EKG12_ITS ---
Test Reason : Blood Pressure : / mmHG Vent. Rate : 059 BPM Atrial Rate : 059 BPM P-R Int : 210 ms QRS Dur : 114 ms QT Int : 440 ms P-R-T Axes : 089 044 069 degrees QTc Int : 435 ms Sinus bradycardia with 1st degree A-V block Otherwise normal ECG Confirmed by TATIANNA WEINBERG, JACKLYN ([id number]), medical editor CATHERINE BANKS ([id number]) on 04/14/2022 10:35:01 AM Referred By: LESLI Confirmed By:JACKLYN CAMPUZANO MD
--- NOTE | 2022-04-10 17:57 | EDS_ITS ---
HPI History of Present Illness Chief Complaint: Hypertension Informant: patient Narrative Narrative: Patient is a 67-year-old male with history of proximal atrial fibrillation (on chronic Coumadin therapy), chronic back pain with spinal stenosis, hypertension hyperlipidemia presenting with elevated blood pressure reading. Patient states he just has not been feeling well and thought maybe his blood pressure was elevated. He notes that he last had spinal injection with Dr. Hema andrews in December and the injection has since worn off and has been having worsening back pain. He is not sure if the 2 are related. He checked his blood pressure at home and it was 193/119. Came in for further evaluation. He notes that he was recently on Flomax for BPH and was taken off of it about a week and 1/2 to 2 weeks ago. He was taken off it because of side effects of shortness of breath and generalized weakness. That has since gotten better. Since being off of the Flomax however he has had a weaker urine stream with urinary frequency. He states taking up to 3 times a night to urinate. He denies any new shortness of breath and denies any chest pain or chest discomfort. He has mild swelling of his legs which he attributes to his chronic Norvasc use and denies any change in this. His last INR was 2.4 on 19 March. He denies any abnormal bleeding. He has no other complaints at this time. Patient notes he has a caregiver for his is currently going through chemotherapy and also has cerebellar ataxia. Because of her chemotherapy this week he could not have his next back injection until the . He only takes Tylenol for pain. Currently denies any significant back pain states more of a dull ache. Denies any saddle anesthesia. Sometimes when he is sitting he does get bilateral lateral hip numbness and sometimes some numbness in his right great toe but currently does not have that. Denies any bowel or bladder incontinence but does sometimes have some dribbling when he waits too long to urinate. [facility] Medical History (Updated 04/10/22 @ 20:[address] Siomara Green DO) Arthritis Asthma Back pain BiPAP (biphasic positive airway pressure) dependence Bladder disease Cancer Cardiology follow-up encounter Chronic back pain Dietary restriction Essential hypertension Fatty liver GERD (gastroesophageal reflux disease) Gout History of echocardiogram History of edema History of pain when walking History of steroid therapy History of stress test History of ulceration Hypertension Inguinal hernia LDL (low density lipoprotein receptor disorder) Leg cramps Lightheaded Low iron Morbid obesity Non-smoker PAF (paroxysmal atrial fibrillation) Peripheral neuropathy Persistent atrial fibrillation Restless legs Shortness of breath on exertion Spinal stenosis Type 2 diabetes mellitus Home Medications amlodipine 10 mg tablet 10 mg PO QHS 06/19/15 [History Last Taken 06/18/15] albuterol sulfate 90 mcg/actuation aerosol inhaler 1 - 2 puff inhalation Q4H PRN PRN Sob &/Or Wheezing ##1 06/20/15 [Rx Last Taken Unknown] meclizine 25 mg tablet 25 mg PO TID PRN Dizziness 06/16/18 [History Last Taken Unknown] mometasone 110 mcg/actuation(30 doses) breath activated powder inhaler (Asmanex Twisthaler) 1 inh inhalation DAILY PRN Asthma 06/16/18 [History Last Taken Unknown] hydralazine 50 mg tablet 50 mg PO BID 09/11/21 [History Last Taken Unknown] losartan 50 mg tablet 100 mg PO QHS 09/11/21 [History Last Taken Unknown] metoprolol tartrate 25 mg tablet 12.5 mg PO BID 09/30/21 [History Last Taken Unknown] metformin 500 mg tablet,extended release 24 hr 500 mg PO BID 10/23/21 [History Last Taken Unknown] acetaminophen 650 mg tablet,extended release (Tylenol Arthritis Pain) 1,300 mg PO Q8H 12/20/21 [History Last Taken Unknown] tamsulosin 0.4 mg capsule (Flomax) 0.4 mg PO QHS 12/20/21 [History Last Taken Unknown] warfarin 2.5 mg tablet 2.5 mg PO THFR 12/20/21 [History Last Taken 12/17/21] warfarin 5 mg tablet 5 mg PO SUMOTUWESA 12/20/21 [History Last Taken 12/17/21] clonidine HCl 0.1 mg tablet 0.1 mg PO BID #28 tabs 04/10/22 [Rx Last Taken Unknown] Allergy/AdvReac Type Severity Reaction Status Date / Time doxazosin [From Cardura] Allergy Intermediate tired Verified 01/31/22 14:27 levofloxacin [From Levaquin] Allergy Intermediate tendonitis Verified 01/31/22 14:27 Family History Mother Heart disease Other Diabetes Hypertension Surgical History History of appendectomy History of arthroscopic knee surgery History of cardioversion (10/30/21) History of carpal tunnel surgery of left wrist History of carpal tunnel surgery of right wrist Hx of hammer toe correction Social History Smoking Status: Never smoker alcohol intake: never substance use type: does not use caffeine: Yes Type: carbonated beverages, coffee and tea ROS ROS ED Constitutional Constitutional ED: Denies chills or fever(s) Eyes Eyes: Denies change in vision Cardiovascular Cardiovascular: Denies chest pain or palpitations Respiratory/Chest Respiratory/Chest: Denies cough, dyspnea or dyspnea on exertion Gastrointestinal Gastrointestinal: Reports abdominal pain; Denies nausea or vomiting Genitourinary Genitourinary ED: Reports urinary frequency; Denies dysuria or hematuria Musculoskeletal Musculoskeletal: Reports back pain Integumentary Denies rash Neurologic Neurologic: Reports paresthesias RLE and LLE; Denies headache(s) or weakness Psychiatric Psychiatric: Denies anxiety or depression Hematologic/Lymphatic Hematologic/Lymphatic: Reports easy bleeding and easy bruising EXAM Physical Exam Const Vital Signs: 04/10/22 15:41 04/10/22 17:04 04/10/22 19:37 Temperature 97.8 F Temperature Source Temporal Pulse Rate 71 61 Respiratory Rate 18 Respiratory Effort Normal Non-Labored Respiratory Pattern Normal Blood Pressure 189/97 H 173/97 H Blood Pressure Mean 127 122 Pulse Ox 99 95 Oxygen Delivery Method Room Air Room Air 04/10/22 21:00 Temperature Temperature Source Pulse Rate 69 Respiratory Rate 15 Respiratory Effort Respiratory Pattern Blood Pressure 176/99 H Blood Pressure Mean Pulse Ox 98 Oxygen Delivery Method Positive well nourished, well developed and obese General Appearance ED: well developed and NAD Nutritional Appearance: obese HEENT Reports moist mucous membranes Eyes PERRL and EOMs intact bilaterally Neck supple and no JVD Chest Wall inspection of chest normal Resp normal respiratory effort and clear to auscultation bilaterally Cardio regular rate, regular rhythm and no murmurs GI normal to inspection, nondistended, normoactive bowel sounds and non-tender Back/Spine no CVA tenderness Thoracic Spine / Upper Back: Negative for thoracic spinal tenderness Lumbar Spine / Lower Back: Negative for lumbar spinal tenderness Neuro oriented x3 and no sensory deficits noted Sensorium / Orientation: alert Motor Exam: strength 5/5 throughout; Negative for general weakness Psych mental status grossly normal Skin no rashes or lesions noted and no wounds MDM MDM MDM Narrative Medical decision making narrative: Patient evaluated for elevated blood pressure at home. He has been feeling generally tired and weak. He said some mild intermittent nausea. Patient appears nontoxic in no acute distress. He is not having chest pain. His INR is therapeutic and I do not think his symptoms are associated with VTE. His EKG does not show ischemic changes. Does show first-degree AV block with sinus bradycardia but this is chronic for the patient. Patient states this is why he was taken off his metoprolol because of his longstanding bradycardia. EKG is sinus rhythm and he does not appear to be in atrial fibrillation at this time. Patient's blood pressure is still elevated while in the ER. He is only having mild back pain so he does not think his pain is really related to the hypertension. In addition he does not have any red flag symptoms consistent with cauda equina syndrome. Patient has had increased urinary frequency since being off his Flomax and I did do a postvoid bladder scan which did not show any urinary retention. Other no signs of endorgan damage associate with hypertension on lab work including DEBORAH. Extensively discussed blood pressure treatment options with patient. He states he has not tolerated HCTZ in the past because of leg cramping. In addition he does not want a diuretic because of his urinary frequency to begin with. He cannot take beta-blockers because of his bradycardia. He is already on hydralazine, losartan and Norvasc. Patient states that he has been on clonidine in the past as a rescue medicine. We will start him on clonidine 0.1 mg twice a day. He does not tolerate that he can discussed with his primary care doctor as the other option we discussed was increasing his hydralazine. Patient is agreeable this plan of care. He is given first dose of clonidine in the emergency room. Is given return precautions. Encouraged to follow closely outpatient for further blood pressure management. Lab Data Attestation: I reviewed the patient's lab results. Labs: Laboratory Results - last 24 hr 04/10/22 04/10/22 04/10/22 19:10 19:10 19:10 WBC 10.3 RBC 5.02 Hgb 13.6 Hct 42.8 MCV 85.3 MCH 27.1 MCHC 31.8 L RDW Std Deviation 43.9 RDW Coeff of Loretta 14.3 Plt Count 201 MPV 10.2 Immature Gran % (Auto) 0.500 Neut % (Auto) 57.8 Lymph % (Auto) 32.6 Irion % (Auto) 6.7 Eos % (Auto) 1.7 Baso % (Auto) 0.7 Absolute Neuts (auto) 6.0 Absolute Lymphs (auto) 3.37 Nucleated RBC % 0 PT 26.2 H INR 2.4 Sodium 141 Potassium 3.6 Chloride 108 H Carbon Dioxide 27.0 Anion Gap 6 BUN 18 Creatinine 0.89 Estim Creat Clear Calc 96.26 Est GFR (MDRD) Af Amer 110 Est GFR (MDRD) Non-Af 91 BUN/Creatinine Ratio 20.2 H Glucose 95 Calcium 9.2 Urine Color Urine Clarity Urine pH Ur Specific Waldron Urine Protein Urine Glucose (UA) Urine Ketones Urine Occult Blood Urine Nitrite Urine Bilirubin Urine Urobilinogen Ur Leukocyte Esterase Urine RBC Urine WBC Ur Squamous Epith Cells Urine Bacteria Urine Mucus 04/10/22 19:15 WBC RBC Hgb Hct MCV MCH MCHC RDW Std Deviation RDW Coeff of Loretta Plt Count MPV Immature Gran % (Auto) Neut % (Auto) Lymph % (Auto) Irion % (Auto) Eos % (Auto) Baso % (Auto) Absolute Neuts (auto) Absolute Lymphs (auto) Nucleated RBC % PT INR Sodium Potassium Chloride Carbon Dioxide Anion Gap BUN Creatinine Estim Creat Clear Calc Est GFR (MDRD) Af Amer Est GFR (MDRD) Non-Af BUN/Creatinine Ratio Glucose Calcium Urine Color Yellow Urine Clarity Clear Urine pH 6.0 Ur Specific Waldron 1.020 Urine Protein 15 H Urine Glucose (UA) Normal Urine Ketones Negative Urine Occult Blood Negative Urine Nitrite Negative Urine Bilirubin Negative Urine Urobilinogen Normal Ur Leukocyte Esterase 25 H Urine RBC 0 SEEN Urine WBC 0-5 SEEN Ur Squamous Epith Cells 0 SEEN Urine Bacteria 0 SEEN Urine Mucus 1+ Rhythm Strip Rhythm Strip: Sinus Rhythm Rate: 59 Ectopy: None EKG Initial EKG: Attestation: I personally reviewed and interpreted this EKG as follows: Interpretation: Sinus Bradycardia Comments: Sinus bradycardia rate of 55 bpm with first-degree AV block TX interval 210 Normal axis Normal QRS and QTc Normal ST segments Compared to prior EKG on 10/30/2021 patient and rate at that time was 64 bpm with no other changes Discharge Plan Triage Chief Complaint: Hypertension ED Provider: Siomara Green Dx/Rx/DC Orders Clinical Impression: Essential hypertension, 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, Bradycardia Instructions: ED Hypertension, Established Prescriptions: New clonidine HCl 0.1 mg tablet 0.1 mg PO BID Qty: 28 0RF No Action meclizine 25 mg tablet 25 mg PO TID PRN (Reason: Dizziness) Asmanex Twisthaler 110 mcg (30 doses) aerosol powdr breath activated 1 inh INHALATION DAILY PRN (Reason: Asthma) losartan 50 mg tablet 100 mg PO QHS Label Comments: TAKE 2 TABLETS BY MOUTH EVERY DAY metformin 500 mg tablet extended release 24 hr 500 mg PO BID amlodipine 10 MG tablet 10 mg PO QHS Label Comments: blood pressure albuterol sulfate 1 INHALER inhaler 1 - 2 puff inhalation Q4H PRN PRN (Reason: Sob &/Or Wheezing) Qty: 1 0RF Label Comments: breathing warfarin 2.5 mg Tablet 2.5 mg PO THFR Protocol: Dose Management Condition: Thursday Dose/Route: 5 mg Instruction: 1 x 5 mg tablet Condition: Thursday Dose/Route: 5 mg Instruction: 1 x 5 mg tablet Condition: Thursday Dose/Route: 5 mg Instruction: 1 x 5 mg tablet Condition: Thursday Dose/Route: 5 mg Instruction: 1 x 5 mg tablet Condition: Dose/Route: 2.5 mg Instruction: 1 x 2.5 mg tablet Condition: Thursday Dose/Route: 2.5 mg Instruction: 1 x 2.5 mg tablet Condition: Thursday Dose/Route: 5 mg Instruction: 1 x 5 mg tablet Protocol Text: Adjustment Start Date: 03/20/22 INR Value: 2.2 INR Date: 03/20/22 Recheck Date: 04/17/22 warfarin 5 mg tablet 5 mg PO TONY Protocol: Dose Management Condition: Thursday Dose/Route: 5 mg Instruction: 1 x 5 mg tablet Condition: Thursday Dose/Route: 5 mg Instruction: 1 x 5 mg tablet Condition: Thursday Dose/Route: 5 mg Instruction: 1 x 5 mg tablet Condition: Thursday Dose/Route: 5 mg Instruction: 1 x 5 mg tablet Condition: Dose/Route: 2.5 mg Instruction: 1 x 2.5 mg tablet Condition: Thursday Dose/Route: 2.5 mg Instruction: 1 x 2.5 mg tablet Condition: Thursday Dose/Route: 5 mg Instruction: 1 x 5 mg tablet Protocol Text: Adjustment Start Date: 03/20/22 INR Value: 2.2 INR Date: 03/20/22 Recheck Date: 04/17/22 acetaminophen [Tylenol Arthritis Pain] 650 mg Tablet Extended Release 1,300 mg PO Q8H tamsulosin [Flomax] 0.4 mg Capsule 0.4 mg PO QHS hydralazine 50 mg tablet 50 mg PO BID Label Comments: blood pressure metoprolol tartrate 25 mg tablet 12.5 mg PO BID Primary Care Provider: Beulah Dexter Referrals: Beulah Dexter NP-C [Primary Care Provider] - Activity Restrictions/Additional Instructions: Your INR today was 2.4. Your work-up was largely normal. You will be started on clonidine. If you develop side effects, your blood pressure gets too low hold it and call your primary care doctor. Regardless, please call your primary care provider/cigarette and filter chief inspector for further outpatient management and recommendations. You will be given a 2-week supply of the clonidine until you can get further recommendations from your primary team. Disposition Disposition: Home, Self Care Discharge Date/Time: 04/10/22 21:19
[2022-04-10 19:21] LABS: Absolute Lymphocyte Count 3.37 X10^3/uL (0.83-4.51); Basophil# 0.07 X10^3/uL; Basophil% 0.7 % (0-1); Eosinophil# 0.18 X10^3/uL; Eosinophils% 1.7 % (0-5); Hematocrit 42.8 % (40-54); Hemoglobin 13.6 g/dL (13.0-16.5); Lymphocyte # 3.37 X10^3/ul (0.83-4.51); Lymphocyte % 32.6 % (19-41); Mean Corp Hgb Conc 31.8 g/dL (32-36); Mean Corpuscular Hgb 27.1 pg (27.0-32.0); Mean Corpuscular Volume 85.3 fL (80-94); Mean Platelet Vol. 10.2 fl (6.2-12.0); Monocyte# 0.69 X10^3/uL; Monocyte% 6.7 % (0-10); NRBC Flagged by Analyzer 0 % (0-5); Neutrophil # 5.97 X10^3/uL (2.7-7.7); Neutrophil % 57.8 % (47-70); Platelet Count 201 K/mm3 (150-450); RBC Distribution Width CV 14.3 % (11.6-14.6); RBC Distribution Width SD 43.9 fl (35.1-43.9); Red Blood Count 5.02 M/mm3 (4.6-6.2); White Blood Count 10.3 K/mm3 (4.4-11.0)
[2022-04-10 19:23] LABS: Bacteria 0 SEEN /hpf (None Seen); Red Blood Cells-Urine 0 SEEN /hpf (0-5); Squamous Epithelial Cells - UA 0 SEEN /hpf (0-5)
[2022-04-10 19:30] LABS: Color, Urine Yellow (Yellow); Glucose, Dipstick Normal (Normal); Ketone-Dipstick Negative (Negative); Leukocyte Esterase-Dipstick 25 /ul (Negative); Nitrite-Dipstick Negative (Negative); Occult Blood-Urine Negative /ul (Negative); Protein-Dipstick 15 mg/dl (Negative); Urine Bilirubin Dipstick Negative (Negative); Urine Clarity Clear (Clear); Urine Urobilinogen Normal (Normal)
[2022-04-10 19:31] LABS: International Normalized Ratio 2.4; Prothrombin Time (Protime)PT. 26.2 SECONDS (11.7-14.9)
[2022-04-10 19:33] LABS: Anion Gap 6 (5-15); BUN 18 mg/dL (7-18); BUN/Creat Ratio 20.2 RATIO (10-20); Calcium,Total 9.2 mg/dL (8.5-10.1); Chloride 108 mmol/L (98-107); Creatinine, Serum 0.89 mg/dL (0.70-1.30); EST Glomerular Filtration Rate 91 mL/min (>60); Est Glom Filt Rate - Afr Amer 110 mL/min (>60); Estimated Creatinine Clearance 96.26 ml/min; Glucose 95 mg/dL (74-106); Potassium 3.6 mmol/L (3.5-5.1); Sodium Level 141 mmol/L (136-145)
[2022-04-10 19:36] LABS: Mucous, Urine 1+ /hpf (<or=2+); White Blood Cells 0-5 SEEN /hpf (0-5)
[2022-04-10 19:37] VITALS: BP 173/97; PULSE 61; O2SAT 95
[2022-04-10 21:00] VITALS: BP 176/99; PULSE 69; RESP 15; O2SAT 98
[2022-04-10] MEDS: cloNIDine HCl 0.1 MG Tablet PO (21:16)
== END 2022-04-10 21:19 | disposition home or self-care (01) ==
PROVIDERS: Emergency Provider Emergency Medicine; PCP Nurse Practitioner Family; Visit Provider Emergency Medicine
DX: I10 Essential (primary) hypertension (principal); E11.42 Type 2 diabetes mellitus with diabetic polyneuropathy; I48.91 Unspecified atrial fibrillation; R53.1 Weakness; I44.0 Atrioventricular block, first degree; Z79.01 Long term (current) use of anticoagulants; M48.00 Spinal stenosis, site unspecified; R35.0 Frequency of micturition; E78.5 Hyperlipidemia, unspecified
CPT/HCPCS: 80048; 81001; 85025; 85610; 93005; 99284; A4216

== ENCOUNTER 2022-05-17 11:29 | Outpatient (RCR) | payer MEDICARE, OTHER, SELFPAY ==
[2022-05-17 12:17] LABS: International Normalized Ratio 2.4; Prothrombin Time (Protime)PT. 25.9 SECONDS (11.7-14.9)
== END 2022-05-17 18:00 | disposition home or self-care (01) ==
LOC: LAB 11:29
PROVIDERS: PCP Nurse Practitioner Family; Referring Provider Physician Assistant Medical; Visit Provider Physician Assistant Medical
DX: I48.19 Other persistent atrial fibrillation (principal); Z79.01 Long term (current) use of anticoagulants
CPT/HCPCS: 36415; 85610

== ENCOUNTER 2022-06-05 13:00 | Outpatient (RCR) | payer MEDICARE, OTHER, SELFPAY ==
--- NOTE | 2022-04-24 13:22 | HP.PTEVAL_ITS ---
Patient's Visit Information JONO PENA is a 67 year old M referred to Physical Therapy by REYNA Culver with a diagnosis of LBP- Sciatica. Date of Evaluation: 04/24/22 Physical Therapist: Nancy Pace DPT - Visit Plan Frequency: 2-3x /Week Duration: 4 Weeks Plan: Focus on LE and Core Strength/Stabilization. HEP Given IE: Posture, TA contraction, Bridge, Hip add with ball, Hip abd with GTB - Subjective Patient reports LBP that has been going on about a year or two- has been to PT prior and it helped. He is also getting caudal injections by Hema- last one was about 3 months ago- goes back for another one in about a month. The pain has been really bad but they put him on Celebrex and the pain is now gone but he can't stay on it. He is on blood thinners so he can't stay on anti-inflam. The pain completely went away Apr 14 when he started Celebrex. Pain prior was in the low back and it started moving to the right of the center towards the right hip. No pain that radiates down the legs. He will get numb in outside of the thighs bilateral if he sits too long- but as soon as he gets up and moves the pain goes away. Doesn't matter what chair. Does have some N/T in his toes but that is not new. Describes the pain as dull and achy when he has it. No legs giving way or buckling. Not normally active. Work: not currently working. 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 She can bear weight so he is not having to lift her- he helps with balance and making sure she is safe. And he is also responsible for all the cooking and cleaning. He did land therapy last time- he was here in [id number] and that was pool. He is not currently doing any exercise. Sleep: not disturbed now but it was prior to celebrex. He has had a recent x-ray October by Dr. Garrido. PMHx: no change Meds: Clonidine and Celebrex - Objective Posture: FH, RS- can correct with verbal cues but does not maintain in sitting or standing. Gait: no deviation noted- good arm swing and trunk rotation. SLS: 5 sec then LOB bilaterally. HR/TR: able without UE A. ROM: Lumbar: Flexion: hands to mid freire, Extn: neutral, SB: dec by 25% and Rot: dec by 25%, Hip/Knee/Ankle: WFL. Strength: Core: fair minus, Ankle: 5/5, Knee: 5/5, Hip: 4/5 throughout bilateral, Flex: HS: moderate, Gastroc: moderate. Palpation:not tender to touch Reflex: WNL to patella bilateral. Sensation: WFL to gross touc h in bilateral LE with gross touch - Special Tests L/S Slump test left side: Negative L/S Slump test right side: Negative L/S Left Straight Leg Raise: Negative L/S Right Straight Leg Raise: Negative - Balance/Special Test Scores Oswestry Low Back Score: 24 - Goals Goal 1:: Patient will be I with HEP and progression Goal Time Frame: 4-6 Weeks Goal 2:: Patient will maintain proper posture t/o tx session to demo increased core s.s Goal Time Frame: 4-6 Weeks Goal 3:: Patient will report 80% improvement Goal Time Frame: 4-6 Weeks - Rehabilitation Potential Physical Therapy Diagnosis: Patient presents with hypomobility- he has decreased LE and core strength/stabilization, flex and muscular endurance leading to increased difficulty with ADL's. Rehabilitation Potential: Fair - Anticipated Interventions Patient/Client Instruction: Educate patient on: Benefits of Fitness Program Therapeutic Exercise to Include: Strength training, Endurance training, Balance training, Coordination, Agility training, Body mechanics, Postural training, Flexibilty training, Gait and locomotor training, Neuromotor development, Dynamic Lumbar Stabilization, Scapular Strength/Stabilization For the Purpose of:: To improve muscle performance and motor function TENS: Yes Cryotherapy (ice pack, ice massage): Yes Thermo therapy (hot pack): Yes Ultrasound (thermal/non thermal): Yes Thank you for the opportunity to evaluate your patient. For Medicare and Medicare HMO plans, please review the plan of care and approve it. It will need to be FAXED BACK to us at [phone] for Medicare purposes. For Medicare only, by signing this I certify the plan of care. Please let me know if there are questions or concerns regarding this plan of care. Physician Signature: D ate:
--- NOTE | 2022-06-05 13:26 | HP.PTDCSUM ---
It has been my pleasure to treat JONO PEAN referred by Beulah Dexter NP-C, with the diagnosis of LBP- Sciatica for a total of 9 visit(s). Discharge Date: Please see the following information for a summary of their discharge status. Subjective: Patient reports that he is doing pretty good- he will take a Tylenol if he is standing too long (10 min to 30 min)- but he is much better than he was prior to therapy. Is able to perform ADL's. He feels that he can be I with the HEP he was given written instructions. Low Back Pain Intensity (Out of 10): Unrated % Improvement: 80 Objective/Function: Posture: FH, RS- can correct with verbal cues but does not maintain in sitting or standing. Gait: no deviation noted- good arm swing and trunk rotation. SLS: 5 sec then LOB bilaterally. HR/TR: able without UE A. ROM: Lumbar: Flexion: hands to mid freire, Extn: neutral, SB: WFL Hip/Knee/Ankle: WFL. Strength: Core: fair minus, Ankle: 5/5, Knee: 5/5, Hip: 4+/5 throughout bilateral, Flex: HS: moderate, Gastroc: moderate. Palpation:not tender to touch Reflex: WNL to patella bilateral. Sensation: WFL to gross touch in bilateral LE with gross touch. - Special Tests. L/S Slump test left side: Negative. L/S Slump test right side: Negative. L/S Left Straight Leg Raise: Negative. L/S Right Straight Leg Raise: Negative Goal 1:: Patient will be I with HEP and progression Goal Progress: Goal Met Goal 2:: Patient will maintain proper posture t/o tx session to demo increased core s.s Goal Progress: Progressing Goal 3:: Patient will report 80% improvement Goal Progress: Goal Met Plan: 06/05/22: Discharge to HEP. Focus on LE and Core Strength/Stabilization If there are questions or concerns regarding this patient's physical therapy, please feel free to call me at [phone]. Thank you for the referral of this patient. Sincerely, Nancy Pace, DPT Balance/Gait/Functional tests - Balance/Special Test Scores Oswestry Low Back Score: 17
== END 2022-06-05 19:00 | disposition home or self-care (01) ==
LOC: PT 13:00
PROVIDERS: PCP Nurse Practitioner Family; Referring Provider Nurse Practitioner Family; Visit Provider Nurse Practitioner Family
DX: M54.41 Lumbago with sciatica, right side (principal); G89.29 Other chronic pain
CPT/HCPCS: 97110; 97162; 97164

== ENCOUNTER 2022-07-25 15:39 | Outpatient (RCR) | payer MEDICARE, OTHER, SELFPAY ==
[2022-07-25 17:54] LABS: International Normalized Ratio 2.3; Prothrombin Time (Protime)PT. 25.9 SECONDS (11.7-14.9)
== END 2022-07-25 17:00 | disposition home or self-care (01) ==
LOC: LAB 15:39
PROVIDERS: PCP Nurse Practitioner Family; Referring Provider Physician Assistant Medical; Visit Provider Physician Assistant Medical
DX: I48.19 Other persistent atrial fibrillation (principal); Z79.01 Long term (current) use of anticoagulants
CPT/HCPCS: 36415; 85610

== ENCOUNTER 2022-07-25 15:46 | Outpatient (CLI) | payer MEDICARE, OTHER, SELFPAY ==
[2022-07-25 17:38] LABS: Vitamin D,25 Hydroxy 43.3 ng/mL
[2022-07-25 17:41] LABS: Ferritin 126 ng/mL (26-388); Iron 51 ug/dL (65-175); Iron Binding Capacity,Total 254 ug/dL (250-450)
== END 2022-07-25 23:59 | disposition home or self-care (01) ==
LOC: LAB 15:48
PROVIDERS: PCP Nurse Practitioner Family; Referring Provider Nurse Practitioner Family; Visit Provider Nurse Practitioner Family
DX: E55.9 Vitamin D deficiency, unspecified (principal); I48.91 Unspecified atrial fibrillation; R53.83 Other fatigue; Z79.01 Long term (current) use of anticoagulants
CPT/HCPCS: 36415; 82306; 82728; 83540; 83550; 85610

== ENCOUNTER 2022-10-02 13:53 | Outpatient (RCR) | payer MEDICARE, OTHER, SELFPAY ==
[2022-10-02 14:42] LABS: Absolute Lymphocyte Count 2.57 X10^3/uL (0.83-4.51); Absolute Neutrophil Count 5.8 X10^3/uL (2.0-7.7); Basophil# 0.06 X10^3/uL; Basophil% 0.6 % (0-1); Eosinophil# 0.22 X10^3/uL; Eosinophils% 2.4 % (0-5); Hematocrit 42.4 % (40-54); Hemoglobin 13.3 g/dL (13.0-16.5); Lymphocyte # 2.57 X10^3/ul (0.83-4.51); Lymphocyte % 27.8 % (19-41); Mean Corp Hgb Conc 31.4 g/dL (32-36); Mean Corpuscular Hgb 26.7 pg (27.0-32.0); Mean Platelet Vol. 10.3 fl (6.2-12.0); Monocyte# 0.58 X10^3/uL; Monocyte% 6.3 % (0-10); NRBC Flagged by Analyzer 0 % (0-5); Neutrophil # 5.78 X10^3/uL (2.7-7.7); Neutrophil % 62.6 % (47-70); Platelet Count 209 K/mm3 (150-450); RBC Distribution Width CV 14.4 % (11.6-14.6); RBC Distribution Width SD 44.3 fl (35.1-43.9); Red Blood Count 4.99 M/mm3 (4.6-6.2); White Blood Count 9.2 K/mm3 (4.4-11.0)
[2022-10-02 15:41] LABS: Vitamin B12 632 pg/mL (211-911)
[2022-10-02 16:25] LABS: ALB/GLOB Ratio 0.8 RATIO (0.9-2.4); AST(SGOT) 33 U/L (15-37); Alanine Aminotransfer ALT/SGPT 40 U/L (16-61); Albumin, Serum 3.2 g/dL (3.2-5.0); Alkaline Phosphatase 67 U/L (45-117); Anion Gap 7 (5-15); BUN 17 mg/dL (7-18); BUN/Creat Ratio 16.7 RATIO (10-20); Chloride 107 mmol/L (98-107); Creatinine, Serum 1.02 mg/dL (0.70-1.30); EST Glomerular Filtration Rate 77 mL/min (>60); Est Glom Filt Rate - Afr Amer 94 mL/min (>60); Globulin 3.8 g/dL (2.2-4.2); Glucose 145 mg/dL (74-106); Potassium 3.7 mmol/L (3.5-5.1); Sodium Level 140 mmol/L (136-145); Thyroid Stim Hormone (TSH) 1.66 uIU/mL (0.358-3.74)
== END 2022-10-20 23:33 | disposition home or self-care (01) ==
LOC: LAB 13:53
PROVIDERS: PCP Nurse Practitioner Family; Referring Provider Physician Assistant Medical; Visit Provider Physician Assistant Medical
DX: I48.19 Other persistent atrial fibrillation (principal); Z79.01 Long term (current) use of anticoagulants; R53.83 Other fatigue; R20.2 Paresthesia of skin
CPT/HCPCS: 36415; 80053; 82607; 82746; 84443; 85025

== ENCOUNTER 2022-10-27 14:49 | Outpatient (RCR) | payer MEDICARE, OTHER, SELFPAY ==
[2022-10-27 15:53] LABS: International Normalized Ratio 2.9; Prothrombin Time (Protime)PT. 30.4 SECONDS (11.7-14.9)
[2022-10-27 16:07] LABS: BNP,B-Type NATRIURETIC PEPTIDE 39.5 pg/mL (0-100)
== END 2022-10-27 18:00 | disposition home or self-care (01) ==
LOC: LAB 14:49
PROVIDERS: Internal Medicine Cardiovascular Disease; PCP Nurse Practitioner Family; Referring Provider Physician Assistant Medical; Visit Provider Physician Assistant Medical
DX: Z79.01 Long term (current) use of anticoagulants; R53.83 Other fatigue; I48.0 Paroxysmal atrial fibrillation; R20.2 Paresthesia of skin
CPT/HCPCS: 36415; 83880; 85610

== ENCOUNTER 2022-11-25 19:00 | Observation (INO) | payer MEDICARE, OTHER, SELFPAY ==
[2022-11-25 19:01] VITALS: BP 152/75; PULSE 66; RESP 18; TEMP 36.4; O2SAT 96; BMI 47.8
--- NOTE | 2022-11-25 19:09 | CT_ITS ---
STUDY: CT BRAIN WITHOUT CONTRAST REASON FOR EXAM: Male, 67 years old. confusion RADIATION DOSAGE (If Supplied By Facility): CTDIvol = ( 44.99 ) mGy, DLP = ( 897.35 ) mGycm TECHNIQUE: Transaxial CT imaging of the brain was performed without administration of intravenous contrast material. Individualized dose optimization techniques were used for this CT. COMPARISON: No relevant priors. FINDINGS: Normal soft tissue structures. Normal calvarium. Calcific plaquing of the cavernous carotids Mild atrophy and periventricular white matter ischemic changes.. Normal basal ganglia and thalami. Normal brainstem. Normal cerebellum. There is no intracranial hemorrhage. There are no findings of an acute ischemic infarction. Normal visualized paranasal sinuses. CT/Brain/Head without Contrast IMPRESSION: Mild atrophy and periventricular white matter ischemic change. No acute bleed. If concern for acute infarct MRI recommended Electronically Signed: Parker Xiao MD at 20:04 EDT ,
--- NOTE | 2022-11-25 20:14 | EX.ED.DYSGE1 ---
HPI History of Present Illness Chief Complaint: Neuro S/Sx Narrative Narrative: Patient presents to the emergency department with episodes of forgetfulness. He apparently forgot an appointment, this morning he went and I did his bed, he has had a couple episodes throughout the day that he just did not know why he was doing what he was doing. He has had this recently however he thinks it is worse today. He does admit that he is in quite a bit of stress secondary to possible divorce. He is denying any weakness, no sensory deficits. No vision changes no disequilibrium. No speech difficulties. [facility] Medical History Arthritis Asthma Back pain BiPAP (biphasic positive airway pressure) dependence Bladder disease Cancer Cardiology follow-up encounter Chronic back pain CVA (cerebral vascular accident) (~06/19/22) Dietary restriction Essential hypertension Fatty liver GERD (gastroesophageal reflux disease) Gout History of echocardiogram History of edema History of pain when walking History of steroid therapy History of stress test History of ulceration Hypertension Inguinal hernia LDL (low density lipoprotein receptor disorder) Leg cramps Lightheaded Low iron Morbid obesity Non-smoker PAF (paroxysmal atrial fibrillation) Peripheral neuropathy Persistent atrial fibrillation Restless legs Shortness of breath on exertion Spinal stenosis Thoracic aortic aneurysm without rupture Type 2 diabetes mellitus Home Medications amlodipine 10 mg tablet 10 mg PO QHS 06/19/15 [History Last Taken 06/18/15] mometasone 110 mcg/actuation(30 doses) breath activated powder inhaler (Asmanex Twisthaler) 1 inh inhalation DAILY PRN Asthma 06/16/18 [History Last Taken Unknown] losartan 50 mg tablet 100 mg PO QHS 09/11/21 [History Last Taken Unknown] metformin 500 mg tablet,extended release 24 hr 500 mg PO BID 10/23/21 [History Last Taken Unknown] warfarin 2.5 mg tablet 2.5 mg PO THFR 12/20/21 [History Last Taken 12/17/21] clonidine HCl 0.1 mg tablet 0.1 mg PO BID #28 tabs 04/10/22 [Rx Last Taken Unknown] aspirin 81 mg tablet,delayed release (Adult Low Dose Aspirin) 81 mg PO DAILY 06/24/22 [History Last Taken Unknown] atorvastatin 40 mg tablet 40 mg PO QHS 06/24/22 [History Last Taken Unknown] cholecalciferol (vitamin D3) 50 mcg (2,000 unit) capsule 100 mcg PO DAILY 06/24/22 [History Last Taken Unknown] acetaminophen 500 mg tablet 500 mg PO TID PRN 07/11/22 [History Last Taken Unknown] warfarin 5 mg tablet 5 mg PO SUMOTUWESA #90 tabs 07/21/22 [Rx Last Taken Unknown] hydralazine 100 mg tablet See Rx Instructions .Route .COMPLEX #90 tabs 08/11/22 [Rx Last Taken Unknown] Allergy/AdvReac Type Severity Reaction Status Date / Time doxazosin [From Cardura] Allergy Intermediate tired Verified 11/25/22 19:03 levofloxacin [From Levaquin] Allergy Intermediate tendonitis Verified 11/25/22 19:03 Family History Mother Heart disease Other Diabetes Hypertension Surgical History History of appendectomy History of arthroscopic knee surgery History of cardioversion (10/30/21) History of carpal tunnel surgery of left wrist History of carpal tunnel surgery of right wrist Hx of hammer toe correction Social History household members: spouse Smoking Status: Never smoker alcohol intake: never substance use type: does not use caffeine: Yes Type: carbonated beverages, coffee and tea EXAM Physical Exam Const Vital Signs: 11/25/22 19:01 11/25/22 20:31 11/25/22 20:31 Temperature 97.5 F L 98.3 F Temperature Source Temporal Temporal Pulse Rate 66 57 L 57 L Respiratory Rate 18 18 18 Blood Pressure 152/75 H 161/78 H 161/78 H Blood Pressure Mean 100 105 105 Pulse Ox 96 94 94 Oxygen Delivery Method Room Air Room Air Room Air MDM MDM MDM Narrative Medical decision making narrative: Patient has slightly subtherapeutic INR, CT is unremarkable, I am unsure if his symptoms are stroke related or not however I talked to stroke neurology who recommended admission for an MRI tomorrow especially that the INR was subtherapeutic and he has a history of paroxysmal A-fib. This sounds reasonable. At this time there is no evidence of intracranial bleed, intracranial mass or metabolic reason for his confusion. Lab Data Labs: Laboratory Results - last 24 hr 11/25/22 11/25/22 11/25/22 20:25 20:41 20:55 WBC 8.9 RBC 4.80 Hgb 12.8 L Hct 40.3 MCV 84.0 MCH 26.7 L MCHC 31.8 L RDW Std Deviation 43.4 RDW Coeff of Loretta 14.2 Plt Count 186 MPV 10.1 Immature Gran % (Auto) 0.500 Neut % (Auto) 60.1 Lymph % (Auto) 28.9 [place] % (Auto) 7.0 Eos % (Auto) 2.7 Baso % (Auto) 0.8 Absolute Neuts (auto) 5.3 Absolute Lymphs (auto) 2.56 Nucleated RBC % 0 PT 18.2 H INR 1.5 Sodium 139 Potassium 3.6 Chloride 106 Carbon Dioxide 25.0 Anion Gap 8 BUN 21 H Creatinine 1.06 Estim Creat Clear Calc 80.82 Est GFR (MDRD) Af Amer 89 Est GFR (MDRD) Non-Af 74 BUN/Creatinine Ratio 19.8 Glucose 180 H Calcium 9.0 Total Bilirubin 0.30 AST 21 ALT 28 Alkaline Phosphatase 63 Total Protein 6.8 Albumin 3.1 L Globulin 3.7 Albumin/Globulin Ratio 0.8 L Urine Color Yellow Urine Clarity Clear Urine pH 5.0 Ur Specific [place] 1.025 Urine Protein 30 H Urine Glucose (UA) Normal Urine Ketones Negative Urine Occult Blood 25 H Urine Nitrite Negative Urine Bilirubin Negative Urine Urobilinogen Normal Ur Leukocyte Esterase 100 H Urine RBC 10-25 SEEN Urine WBC 10-25 SEEN Ur Squamous Epith Cells 0-5 SEEN Urine Bacteria 0 SEEN Urine Mucus 2+ POC Glucose 174 H Radiography Diagnostic Testing: Clinical Impression(s) from Imaging Studies Brain CT 11/25/22 19:09 IMPRESSION: Mild atrophy and periventricular white matter ischemic change. No acute bleed. If concern for acute infarct MRI recommended Electronically Signed: Parker Xiao MD at 20:04 EDT , Discharge Plan Triage Chief Complaint: Neuro S/Sx ED Provider: Miguel Frazier Dx/Rx/DC Orders Clinical Impression: A-fib, Acute confusion, Hypertension Prescriptions: No Action Asmanex Twisthaler 110 mcg (30 doses) aerosol powdr breath activated 1 inh INHALATION DAILY PRN (Reason: Asthma) losartan 50 mg tablet 100 mg PO QHS Patient Comments: TAKE 2 TABLETS BY MOUTH EVERY DAY metformin 500 mg tablet extended release 24 hr 500 mg PO BID acetaminophen 500 mg tablet 500 mg PO TID PRN atorvastatin 40 mg tablet 40 mg PO QHS aspirin [Adult Low Dose Aspirin] 81 mg tablet,delayed release (DR/EC) 81 mg PO DAILY cholecalciferol (vitamin D3) 50 mcg (2,000 unit) capsule 100 mcg PO DAILY amlodipine 10 MG tablet 10 mg PO QHS Patient Comments: blood pressure warfarin 2.5 mg Tablet 2.5 mg PO THFR Protocol: Dose Management Condition: Thursday Dose/Route: 5 mg Instruction: 1 x 5 mg tablet Condition: Thursday Dose/Route: 5 mg Instruction: 1 x 5 mg tablet Condition: Thursday Dose/Route: 5 mg Instruction: 1 x 5 mg tablet Condition: Thursday Dose/Route: 5 mg Instruction: 1 x 5 mg tablet Condition: Dose/Route: 2.5 mg Instruction: 1 x 2.5 mg tablet Condition: Thursday Dose/Route: 2.5 mg Instruction: 1 x 2.5 mg tablet Condition: Thursday Dose/Route: 5 mg Instruction: 1 x 5 mg tablet Protocol Text: Adjustment Start Date: Thursday10/27/22 INR Value: 2.9 INR Date: 10/27/22 Recheck Date: 12/01/22 clonidine HCl 0.1 mg tablet 0.1 mg PO BID Qty: 28 0RF warfarin 5 mg tablet 5 mg PO SUMOTUWESA Qty: 90 3RF Protocol: Dose Management Condition: Thursday Dose/Route: 5 mg Instruction: 1 x 5 mg tablet Condition: Thursday Dose/Route: 5 mg Instruction: 1 x 5 mg tablet Condition: Thursday Dose/Route: 5 mg Instruction: 1 x 5 mg tablet Condition: Thursday Dose/Route: 5 mg Instruction: 1 x 5 mg tablet Condition: Dose/Route: 2.5 mg Instruction: 1 x 2.5 mg tablet Condition: Thursday Dose/Route: 2.5 mg Instruction: 1 x 2.5 mg tablet Condition: Thursday Dose/Route: 5 mg Instruction: 1 x 5 mg tablet Protocol Text: Adjustment Start Date: Thursday10/27/22 INR Value: 2.9 INR Date: 10/27/22 Recheck Date: 12/01/22 hydralazine 100 mg tablet See Rx Instructions .ROUTE .COMPLEX Qty: 90 11RF Dose Instruction: TAKE 1 TABLET BY MOUTH THREE TIMES A DAY Rx Instructions: TAKE 1 TABLET BY MOUTH THREE TIMES A DAY Primary Care Provider: Beulah Dexter Referrals: Beulah Dexter, REYNA [Primary Care Provider] - Disposition Disposition: Acute Care Hospital [facility] NIHSS NIHSS 1a. Level of Consciousness: Alert; keenly responsive 1b. LOC Questions: Answers BOTH questions correctly. 1c. LOC Commands: Performs both tasks correctly. 2. Best Gaze: Normal 3. Visual: No visual loss 4. Facial Palsy: Normal symmetrical movements 5a. Left Arm: No drift; arm holds 90 (or 45) degrees for full 10 seconds 5b. Right Arm: No drift; arm holds 90 (or 45) degrees for full 10 seconds 6a. Left Leg: No drift; leg holds 30-degree position for full 5 seconds 6b. Right Leg: No drift; leg holds 30-degree position for full 5 seconds 7. Limb Ataxia: Absent 8. Sensory: Normal; no sensory loss 9. Best Language: No aphasia; normal 10. Dysarthria: Normal 11. Extinction and Inattention: No abnormality Total: 0
--- NOTE | 2022-11-25 20:16 | EKG12_ITS ---
Test Reason : NEURO Blood Pressure : / mmHG Vent. Rate : 057 BPM Atrial Rate : 057 BPM P-R Int : 220 ms QRS Dur : 102 ms QT Int : 416 ms P-R-T Axes : 033 052 066 degrees QTc Int : 404 ms Sinus bradycardia with 1st degree A-V block Otherwise normal ECG Confirmed by TATIANNA WEINBERG, JACKLYN ([id number]), commercial production editor AMARILYS HUANG ([id number]) on 11/28/2022 11:25:48 AM Referred By: Confirmed By:JACKLYN CAMPUZANO MD
[2022-11-25 20:31] VITALS: BP 161/78; PULSE 57; RESP 18; TEMP 36.8; O2SAT 94; BMI 48.0
[2022-11-25 20:36] VITALS: BMI 48.0
[2022-11-25 20:59] LABS: Bedside Glucose 174 mg/dL (74-106)
[2022-11-25 21:07] LABS: Absolute Lymphocyte Count 2.56 X10^3/uL (0.83-4.51); Absolute Neutrophil Count 5.3 X10^3/uL (2.0-7.7); Basophil# 0.07 X10^3/uL; Basophil% 0.8 % (0-1); Eosinophil# 0.24 X10^3/uL; Eosinophils% 2.7 % (0-5); Hematocrit 40.3 % (40-54); Hemoglobin 12.8 g/dL (13.0-16.5); Lymphocyte # 2.56 X10^3/ul (0.83-4.51); Lymphocyte % 28.9 % (19-41); Mean Corp Hgb Conc 31.8 g/dL (32-36); Mean Corpuscular Hgb 26.7 pg (27.0-32.0); Mean Platelet Vol. 10.1 fl (6.2-12.0); Monocyte# 0.62 X10^3/uL; NRBC Flagged by Analyzer 0 % (0-5); Neutrophil # 5.32 X10^3/uL (2.7-7.7); Neutrophil % 60.1 % (47-70); Platelet Count 186 K/mm3 (150-450); RBC Distribution Width CV 14.2 % (11.6-14.6); RBC Distribution Width SD 43.4 fl (35.1-43.9); White Blood Count 8.9 K/mm3 (4.4-11.0)
[2022-11-25 21:08] LABS: Bacteria 0 SEEN /hpf (None Seen)
[2022-11-25 21:10] LABS: Color, Urine Yellow (Yellow); Glucose, Dipstick Normal (Normal); Ketone-Dipstick Negative (Negative); Leukocyte Esterase-Dipstick 100 /ul (Negative); Nitrite-Dipstick Negative (Negative); Occult Blood-Urine 25 /ul (Negative); Protein-Dipstick 30 mg/dl (Negative); Specific Gravity, Urine 1.025 (1.002-1.030); Urine Bilirubin Dipstick Negative (Negative); Urine Clarity Clear (Clear); Urine Urobilinogen Normal (Normal)
[2022-11-25 21:10] LABS: International Normalized Ratio 1.5; Prothrombin Time (Protime)PT. 18.2 SECONDS (11.7-14.9)
[2022-11-25 21:18] LABS: Red Blood Cells-Urine 10-25 SEEN /hpf (0-5)
[2022-11-25 21:19] LABS: White Blood Cells 10-25 SEEN /hpf (0-5)
[2022-11-25 21:20] LABS: Mucous, Urine 2+ /hpf (<or=2+); Squamous Epithelial Cells - UA 0-5 SEEN /hpf (0-5)
[2022-11-25 21:26] LABS: ALB/GLOB Ratio 0.8 RATIO (0.9-2.4); AST(SGOT) 21 U/L (15-37); Alanine Aminotransfer ALT/SGPT 28 U/L (16-61); Albumin, Serum 3.1 g/dL (3.2-5.0); Alkaline Phosphatase 63 U/L (45-117); Anion Gap 8 (5-15); BUN 21 mg/dL (7-18); BUN/Creat Ratio 19.8 RATIO (10-20); Chloride 106 mmol/L (98-107); Creatinine, Serum 1.06 mg/dL (0.70-1.30); EST Glomerular Filtration Rate 74 mL/min (>60); Est Glom Filt Rate - Afr Amer 89 mL/min (>60); Estimated Creatinine Clearance 80.82 ml/min; Globulin 3.7 g/dL (2.2-4.2); Glucose 180 mg/dL (74-106); Potassium 3.6 mmol/L (3.5-5.1); Protein, Total 6.8 g/dL (6.4-8.2); Sodium Level 139 mmol/L (136-145)
--- NOTE | 2022-11-25 22:04 | HP.PCM.HOS_ITS ---
HPI - General General Date of Admission: 11/25/22 Date of Service: 11/25/22 Chief Complaint: Confusion/Brain fog HPI Narrative The patient is a 67 y/o M w/ PMHx: Asthma, Morbid Obesity, Chart reported Hx Thoracic AAA (not substantiated), PAF on coumadin, HTN, HLD, Chronic bradycardia, Diabetes mellitus type II w/ chronic neuropathy, Chronic back pain with lumbar spinal stenosis, MARQUES on BIPAP, GERD, Hx admission 06/19/22 following L sided weakness while driving with paresthesias eventually diagnosed with right centrum semiovale acute CVA per MRI brain not considered a candidate for thrombolytic therapy at that time administered full-strength aspirin and Plavix load with hold on Coumadin temporarily started on Lipitor 40 mg daily with unremarkable CTA head and neck at that time who now presents to the [facility] ED on 11/25/22 with history of complaint of mild confusion described as brain fog starting at ~ 11 am on day of presentation, reporting frequently forgeting what he is doing prompting eventual ED evaluation. He reports that he had an appointment in the morning that he forgot as well as a couple similar episodes during the day although he does report this has been a recent occurrence but worse on day of presentation. 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 He denies any focal weakness or paresthesias or imbalance. Work-up in the ED included T97.5, heart 66, BP 152/75, respiratory rate 18, 96% on room air, CBC with WBC 8.9, hemoglobin 12.8, platelet 186 without marked shift, coags with subtherapeutic INR 1.5, CMP with BUN/creatinine 21/1.06, glucose 180 otherwise Paddock profile not marked appearing, urinalysis with specific gravity 1.025, protein 30, occult blood 25, negative nitrite, leukocyte Estrace 100 with urine RBC and urine WBCs 10-25 with 2+ mucus but no marked bacteria noted, CT of the brain with mild atrophy and periventricular white matter ischemic change with no acute intracranial findings, EKG SB w/ 1 AVB without acute evidence of ischemia. NIHSS in the ED 0. Teleneurology recommended admission and evaluation given subtherapeutic INR. If evidence of MRI acute CVA Teleneurology recommended repeat consultation. [facility] Medical History Arthritis Asthma Back pain BiPAP (biphasic positive airway pressure) dependence Bladder disease Cancer Cardiology follow-up encounter Chronic back pain CVA (cerebral vascular accident) (~06/19/22) Dietary restriction Essential hypertension Fatty liver GERD (gastroesophageal reflux disease) Gout History of echocardiogram History of edema History of pain when walking History of steroid therapy History of stress test History of ulceration Hypertension Inguinal hernia LDL (low density lipoprotein receptor disorder) Leg cramps Lightheaded Low iron Morbid obesity Non-smoker PAF (paroxysmal atrial fibrillation) Peripheral neuropathy Persistent atrial fibrillation Restless legs Shortness of breath on exertion Spinal stenosis Thoracic aortic aneurysm without rupture Type 2 diabetes mellitus Home Medications amlodipine 10 mg tablet 10 mg PO QHS 06/19/15 [History Last Taken 06/18/15] mometasone 110 mcg/actuation(30 doses) breath activated powder inhaler (Asmanex Twisthaler) 1 inh inhalation DAILY PRN Asthma 06/16/18 [History Last Taken Unknown] losartan 50 mg tablet 100 mg PO QHS 09/11/21 [History Last Taken Unknown] metformin 500 mg tablet,extended release 24 hr 500 mg PO BID 10/23/21 [History Last Taken Unknown] warfarin 2.5 mg tablet 2.5 mg PO THFR 12/20/21 [History Last Taken 12/17/21] clonidine HCl 0.1 mg tablet 0.1 mg PO BID #28 tabs 04/10/22 [Rx Last Taken Unknown] aspirin 81 mg tablet,delayed release (Adult Low Dose Aspirin) 81 mg PO DAILY 06/24/22 [History Last Taken Unknown] atorvastatin 40 mg tablet 40 mg PO QHS 06/24/22 [History Last Taken Unknown] cholecalciferol (vitamin D3) 50 mcg (2,000 unit) capsule 100 mcg PO .weekly 06/24/22 [History Last Taken Unknown] warfarin 5 mg tablet 5 mg PO SUMOTUWESA #90 tabs 07/21/22 [Rx Last Taken Unknown] hydralazine 100 mg tablet See Rx Instructions .Route .COMPLEX #90 tabs 08/11/22 [Rx Last Taken Unknown] Allergy/AdvReac Type Severity Reaction Status Date / Time doxazosin [From Cardura] Allergy Intermediate tired Verified 11/25/22 19:03 levofloxacin [From Levaquin] Allergy Intermediate tendonitis Verified 11/25/22 19:03 Family History (Updated 11/25/22 @ 23:[address] Aurora Story MD) Mother Heart disease Diabetes Hypertension Father Hypertension Surgical History History of appendectomy History of arthroscopic knee surgery History of cardioversion (10/30/21) History of carpal tunnel surgery of left wrist History of carpal tunnel surgery of right wrist Hx of hammer toe correction Social History household members: spouse Smoking Status: Never smoker alcohol intake: never substance use type: does not use caffeine: Yes Type: carbonated beverages, coffee and tea ROS ROS Narrative Admission Review of Systems: CONSTITUTIONAL: No weight loss, fever, chills, + weakness or fatigue. HEENT: Eyes: No visual loss, blurred vision, double vision or yellow sclerae. Ears, Nose, Throat: No hearing loss, sneezing, congestion, runny nose or sore throat. SKIN: No rash or itching, lesions, wounds. CARDIOVASCULAR: No chest pain, chest pressure or chest discomfort, palpitations, edema, orthopnea, syncopal events. RESPIRATORY: No shortness of breath, cough or sputum, wheezing, hemoptysis. GASTROINTESTINAL: No anorexia, nausea, vomiting or diarrhea, abdominal pain, melena, BRBPR. GENITOURINARY: No dysuria, frequency, urgency or retention. NEUROLOGICAL: + Confusion, No headache, dizziness, syncope, paralysis, ataxia, numbness or tingling in the extremities, focal weakness, change in bowel or bladder control, seizure. MUSCULOSKELETAL: + muscle, back pain, joint pain or stiffness. HEMATOLOGIC: + Chronic anemia, easy bleeding LYMPHATICS: No enlarged nodes. No history of splenectomy. PSYCHIATRIC: + history of depression or anxiety. ENDOCRINOLOGIC: No reports of sweating, cold or heat intolerance. No polyuria or polydipsia. ALLERGIES: + history of asthma, rhinitis. Vital Signs Vital Signs Vital Signs: 11/25/22 19:01 11/25/22 20:31 11/25/22 20:31 Temperature 97.5 F L 98.3 F Temperature Source Temporal Temporal Pulse Rate 66 57 L 57 L Respiratory Rate 18 18 18 Blood Pressure 152/75 H 161/78 H 161/78 H Blood Pressure Mean 100 105 105 Pulse Ox 96 94 94 Oxygen Delivery Method Room Air Room Air Room Air Weight Weight: 384 lb 11.306 oz Body Mass Index (BMI) 48.0 Physical Exam Narrative Physical Examination: General: Awake, alert, oriented x [address], some recent events however from discussion he has significant issues more severe over the course of the last 24 hours where he is forgetting having done things or forgetting appointments, remains cooperative, seated upright in the ED bed, fatigued appearance, flat affect. Skin: Normal color, normal turgor, no icterus, no cyanosis. HEENT: AT/NC, EOMI, PERRLA, mildly dry MM, no carotid bruits or JVD noted. Lungs: CTA bilaterally, moderate effort, mild decrease BL bases, no rales, ronchi or wheezing. Heart: Mildly bradycardic with regular rhythm; no gallop, rub audible. Abdomen: Soft, morbidly obese, NTTP, distant bowel sounds, difficult to discern distention and HSM secondary to habitus. Extremities: No cyanosis, no clubbing, bilateral lower extremity peripheral mildly pitting edema. Neurological: Patient awake, alert, oriented as noted, cognitive function currently appears improved from previous description, suspect still not quite baseline intact; pupils equally reactive to light and accommodation, cranial nerves grossly normal, moving all 4 extremities, no focal deficits nor any evidence of any residual weakness from prior CVA, [id number] and [id number] appropriate, sensation intact, equivocal Babinski. Psychiatric: Affect appears flat, fatigued, suspect especially with discussions underlying depression and potential anxiety. Results Lab / Micro Data 11/25/22 20:25 11/25/22 20:25 Labs: Laboratory Results - last 24 hr 11/25/22 20:25: WBC 8.9, RBC 4.80, Hgb 12.8 L, Hct 40.3, MCV 84.0, MCH 26.7 L, MCHC 31.8 L, RDW Std Deviation 43.4, RDW Coeff of Loretta 14.2, Plt Count 186, MPV 10.1, Immature Gran % (Auto) 0.500, Neut % (Auto) 60.1, Lymph % (Auto) 28.9, [place] % (Auto) 7.0, Eos % (Auto) 2.7, Baso % (Auto) 0.8, Absolute Neuts (auto) 5.3, Absolute Lymphs (auto) 2.56, Nucleated RBC % 0, PT 18.2 H, INR 1.5, Sodium 139, Potassium 3.6, Chloride 106, Carbon Dioxide 25.0, Anion Gap 8, BUN 21 H, Creatinine 1.06, Estim Creat Clear Calc 80.82, Est GFR (MDRD) Af Amer 89, Est GFR (MDRD) Non-Af 74, BUN/Creatinine Ratio 19.8, Glucose 180 H, Calcium 9.0, Total Bilirubin 0.30, AST 21, ALT 28, Alkaline Phosphatase 63, Total Protein 6.8, Albumin 3.1 L, Globulin 3.7, Albumin/Globulin Ratio 0.8 L 11/25/22 20:41: POC Glucose 174 H 11/25/22 20:55: Urine Color Yellow, Urine Clarity Clear, Urine pH 5.0, Ur Specific [place] 1.025, Urine Protein 30 H, Urine Glucose (UA) Normal, Urine Ketones Negative, Urine Occult Blood 25 H, Urine Nitrite Negative, Urine Bilirubin Negative, Urine Urobilinogen Normal, Ur Leukocyte Esterase 100 H, Urine RBC 10-25 SEEN, Urine WBC 10-25 SEEN, Ur Squamous Epith Cells 0-5 SEEN, Urine Bacteria 0 SEEN, Urine Mucus 2+ Radiology Impression Brain CT 11/25/22 19:09 IMPRESSION: Mild atrophy and periventricular white matter ischemic change. No acute bleed. If concern for acute infarct MRI recommended Electronically Signed: Parker Xiao MD at 20:04 EDT Reading Location ID and State: [facility] [place] / [place] Tel , Service support , Assessment & Plan Assessment/Plan (1) Acute confusion: PLAN: Plan The patient is a 67 y/o M w/ PMHx: Asthma, Morbid Obesity, Chart reported Hx Thoracic AAA (not substantiated), PAF on coumadin, HTN, HLD, Chronic bradycardia, Diabetes mellitus type II w/ chronic neuropathy, Chronic back pain with lumbar spinal stenosis, MARQUES on BIPAP, GERD, Hx admission 06/19/22 following L sided weakness while driving with paresthesias eventually diagnosed with right centrum semiovale acute CVA per MRI brain not considered a candidate for thrombolytic therapy at that time administered full-strength aspirin and Plavix load with hold on Coumadin temporarily started on Lipitor 40 mg daily with unremarkable CTA head and neck at that time who now presents to the [facility] ED on 11/25/22 with history of complaint of mild confusion described as brain fog starting at ~ 11 am on day of presentation, reporting frequently forgeting what he is doing prompting eventual ED evaluation. #1. Confusion, patient reported brain fog of unclear etiology concerning for possible TIA w/ Prior Hx CVA w/ L sided weakness w/ R centrum semiovale CVA: Will admit to PCU, will obtain MRI Brain, CTA Head and Neck, recent 05/2022 ECHO with bubble study with EF 60%, no evidence of PFO, and WMA, dilated RV, mildly dilated LA, dilated aorta with maximum diameter 4.2 cm with no significant valvular disease or intracardiac thrombus thus will not repeat. PT/OT/Speech/Nutrition evaluation per protocol. Will allow permissive HTN but as noted add back regimen immediately if MRI negative given potential for rebound HTN as patient on clonidine, maintain on asa, statin w/ AM FLP, fall precautions. Mag, TSH, FLP, HgbA1c requested. Maintain on fall and aspiration precautions. We will continue Coumadin with additional loading dose now is subtherapeutic with continued INR trending. #2. PAF: History of previous DCCV with conversion to sinus rhythm following with last cardiac visit with Dr. Oro noted 08/05/2022, previously on Eliquis however transition to Coumadin secondary to cost, not on any rate or rhythm age nt, continue Coumadin with INR trending with additional loading dose now as subtherapeutic. #3. Hypertension: Given presentation we will temporally maintain permissive hypertension cautiously especially given clonidine usage with preference to avoid rebound hypertension, will have as needed agents per stroke protocol and immediately add back once work-up is unremarkable. #4. Hyperlipidemia: Continue home statin regimen. AM FLP. #5. Chronic Asthma: We will temporally hold home inhalers and in the interim given reportedly as needed usage only we will transition to PRN albuterol, HOB, IS parameters. #6. Diabetes mellitus type II with chronic neuropathy: Hold oral home regimen, hemoglobin A1c pending per protocol as noted, ADA diet, accu checks w/ ISS, nutrition consulted per protocol. #7. Chart reported Hx Thoracic AAA, not substantiated: Last CTA chest and noted in the system 06/19/2015 with no marked findings at that time and no mention in most recent cardiology evaluation. #8. Chronic back pain: Patient with chronic lumbar back pain with spinal stenosis, maintain on fall precautions, therapies consulted as noted, offloading. #9. Morbid Obesity: Weight loss and lifestyle changes encouraged, nutrition consulted. #10. MARQUES: BIPAP q HS. #11. DVT prophylaxis: We will continue Coumadin with INR trending with additional loading dose now as subtherapeutic. Charges/Coding Visit Charges Inpatient E&M: 95112 Init Hosp L3
[2022-11-25 22:42] VITALS: BP 162/89; PULSE 55; RESP 16; TEMP 36.7; O2SAT 97; O2SAT 99
--- NOTE | 2022-11-25 23:08 | CT_ITS ---
INDICATION: CVA EXAMINATION: CTA CAROTIDS AND BRAIN - CTA Head and Neck W/ Contrast Injection (and W/O Contrast Images if performed) TECHNIQUE: Routine CTA of the head and neck was performed with post processing of the angiographic images for volumetric reconstructions. In addition, images were obtained of the [place] of [place]. Nascet criteria using the distal ICAs for comparison were used for evaluation of stenoses. 3D reconstructions were reviewed. A radiation dose optimization technique was used for this scan. IV Contrast dosage and agent: 100 mL [id number] COMPARISON: CT head November 25, 2022. FINDINGS: --NECK: AORTIC ARCH AND BRANCHES: Normal anatomy, patent. RIGHT CCA: No occlusion, significant stenosis or dissection. RIGHT ICA: Mild scattered carotid bifurcation atherosclerosis. No occlusion, significant stenosis or dissection. LEFT CCA: No occlusion, significant stenosis or dissection. LEFT ICA:Mild scattered carotid bifurcation atherosclerosis. No occlusion, significant stenosis or dissection. RIGHT VERTEBRAL ARTERY: No occlusion, significant stenosis or dissection. LEFT VERTEBRAL ARTERY: No occlusion, significant stenosis or dissection. NECK SOFT TISSUES: Unremarkable. LUNG APICES: Clear. BONES: Unremarkable. Scattered mild paranasal sinus mucoperiosteal thickening. --HEAD: --Anterior circulation: ICAs: Bilateral carotid atherosclerosis. No significant stenosis at the intracranial/visualized segments. ACAs: No significant stenosis at the visualized segments. ACOM: Present. MCAs: No significant stenosis at the visualized segments. --Posterior circulation: PCOMs: Present on the right. Not seen on the left. raw mill operator: No significant stenosis at the visualized segments. BASILAR ARTERY: No significant stenosis. VERTEBRAL ARTERIES: No significant stenosis at the intradural/visualized segments. No evidence of intracranial aneurysm or vascular malformation. CT/CTA Head AND Neck W/ Contrast IMPRESSION: Scattered atherosclerosis without evidence of cervical or proximal intracranial vascular occlusion or focal flow-limiting stenosis. Electronically Signed: Keo Johnson MD at 0:45 EDT ,
[2022-11-25 23:15] VITALS: BMI 47.5
[2022-11-26] VITALS (8 sets, daily range): BP systolic 147–183; BP diastolic 75–88; PULSE 54–60; RESP 12–21; TEMP 36–36.5; O2SAT 94–98; BMI 47.5
[2022-11-26] MEDS: 0.9% Normal Saline 1,000 ML 100 ML IV (00:33)
[2022-11-26 05:21] LABS: Absolute Lymphocyte Count 2.43 X10^3/uL (0.83-4.51); Absolute Neutrophil Count 4.5 X10^3/uL (2.0-7.7); Basophil# 0.07 X10^3/uL; Basophil% 0.9 % (0-1); Eosinophil# 0.21 X10^3/uL; Eosinophils% 2.7 % (0-5); Hematocrit 40.9 % (40-54); Hemoglobin 12.6 g/dL (13.0-16.5); Lymphocyte # 2.43 X10^3/ul (0.83-4.51); Mean Corp Hgb Conc 30.8 g/dL (32-36); Mean Corpuscular Hgb 26.4 pg (27.0-32.0); Mean Corpuscular Volume 85.6 fL (80-94); Mean Platelet Vol. 10.3 fl (6.2-12.0); Monocyte# 0.56 X10^3/uL; Monocyte% 7.1 % (0-10); NRBC Flagged by Analyzer 0 % (0-5); Neutrophil # 4.54 X10^3/uL (2.7-7.7); Neutrophil % 57.9 % (47-70); Platelet Count 179 K/mm3 (150-450); RBC Distribution Width CV 14.3 % (11.6-14.6); RBC Distribution Width SD 44.9 fl (35.1-43.9); Red Blood Count 4.78 M/mm3 (4.6-6.2); White Blood Count 7.8 K/mm3 (4.4-11.0)
[2022-11-26 05:32] LABS: International Normalized Ratio 1.6; Prothrombin Time (Protime)PT. 18.8 SECONDS (11.7-14.9)
--- NOTE | 2022-11-26 05:55 | MRI_ITS ---
EXAM: MR HEAD WITHOUT INTRAVENOUS CONTRAST CLINICAL INDICATION: CVA, PERIODS OF FORGETFULNESS, INCREASED STRESS TECHNIQUE: Multiplanar and multisequence MR images of the brain were obtained without intravenous contrast. COMPARISON: CT head without contrast and CTA head and neck with contrast 11/25/2022. FINDINGS: BRAIN AND EXTRA-AXIAL SPACES: Small T2 FLAIR hyperintensity foci in the white matter of the cerebral hemispheres are chronic white matter ischemic changes. No intra- or extra-axial hemorrhage. No intracranial mass or mass effect. Posterior fossa structures are unremarkable. Ventricles are appropriate for age. No hydrocephalus. Basal cisterns are patent. No diffusion restriction to suspect acute or subacute ischemic infarct. SELLA: Unremarkable. Normal sella turcica, pituitary gland, infundibular stalk, optic chiasm and hypothalamus. AUDITORY SYSTEM: Unremarkable. The internal auditory canals are patent. BONES/JOINTS: Unremarkable. No discrete lytic or blastic abnormalities. SINUSES: Unremarkable as visualized. Clear. MASTOID AIR CELLS: Unremarkable as visualized. Clear. ORBITS: Unremarkable as visualized. Both globes, extraocular muscles, optic nerves and retrobulbar fat appear unremarkable. VASCULATURE: Unremarkable as visualized. Normal flow voids in the major intracranial circulation. MRI/Brain without Contrast IMPRESSION: 1. No MRI evidence of acute or subacute ischemic infarct or remote ischemic infarct. 2. Few small chronic white matter ischemic changes in both cerebral hemispheres. Electronically Signed: Mateo Arana MD at 10:50 EDT ,
[2022-11-26 06:07] LABS: ALB/GLOB Ratio 0.8 RATIO (0.9-2.4); AST(SGOT) 23 U/L (15-37); Alanine Aminotransfer ALT/SGPT 28 U/L (16-61); Alkaline Phosphatase 57 U/L (45-117); Anion Gap 6 (5-15); BUN 17 mg/dL (7-18); Calcium,Total 8.5 mg/dL (8.5-10.1); Chloride 108 mmol/L (98-107); Cholesterol 134 mg/dL (200); Creatinine, Serum 0.89 mg/dL (0.70-1.30); EST Glomerular Filtration Rate 90 mL/min (>60); Est Glom Filt Rate - Afr Amer 109 mL/min (>60); Estimated Creatinine Clearance 96.26 ml/min; Globulin 3.7 g/dL (2.2-4.2); Glucose 115 mg/dL (74-106); High Density Lipoprotein 42 mg/dL; Potassium 3.5 mmol/L (3.5-5.1); Protein, Total 6.7 g/dL (6.4-8.2); Sodium Level 140 mmol/L (136-145); Thyroid Stim Hormone (TSH) 3.02 uIU/mL (0.358-3.74); Triglycerides 126 mg/dL; Very Low Density Lipoprotein 25 mg/dL (5-40)
[2022-11-26 07:18] LABS: Bedside Glucose 116 mg/dL (74-106)
[2022-11-26] MEDS: Aspirin E.C. 81 MG Tablet PO (08:40)
[2022-11-26] MEDS: Insulin Lispro 100 UNIT/ML INSULN.PEN SC (11:06)
[2022-11-26 11:10] LABS: Bedside Glucose 159 mg/dL (74-106)
--- NOTE | 2022-11-26 12:35 | DCINST_ITS ---
Discharge Instructions Diet Discharge Diet: No restrictions Activity Discharge Activity: Return to Normal Activity Weight Bearing Status: Full weight bearing Follow Up Care Please Follow Up With: Beulah Dexter NP-C When: In next 1 to 2 weeks Test Results: Test results from this visit will be discussed in further detail at your follow- up appointment, if applicable. Pending Tests Upon Discharge: None Discharge Plan Admission Admit Date/Time: 11/25/22 22:07 Primary Reason for Your Visit: Confusion, CVA rule out Attending Provider: Ray Webster Primary Care Provider: Beulah Dexter Consulting Providers: Aurora Story Instructions Additional Instructions / Restrictions: Continue all home medications as you have been taking. Recommend follow-up appo intment with your primary care doctor in the next few weeks to discuss further evaluation for depression in the setting of significant caregiver fatigue. Could consider outpatient counseling plus or minus trialing low-dose antidepressant. Discharge Orders/Prescriptions Prescriptions: Continued Asmanex Twisthaler 110 mcg (30 doses) aerosol powdr breath activated 1 inh INHALATION DAILY PRN (Reason: Asthma) losartan 50 mg tablet 100 mg PO QHS Patient Comments: TAKE 2 TABLETS BY MOUTH EVERY DAY metformin 500 mg tablet extended release 24 hr 500 mg PO BID atorvastatin 40 mg tablet 40 mg PO QHS aspirin [Adult Low Dose Aspirin] 81 mg tablet,delayed release (DR/EC) 81 mg PO DAILY cholecalciferol (vitamin D3) 50 mcg (2,000 unit) capsule 100 mcg PO .weekly amlodipine 10 MG tablet 10 mg PO QHS Patient Comments: blood pressure warfarin 2.5 mg Tablet 2.5 mg PO THFR Protocol: Dose Management Condition: Thursday Dose/Route: 5 mg Instruction: 1 x 5 mg tablet Condition: Thursday Dose/Route: 5 mg Instruction: 1 x 5 mg tablet Condition: Thursday Dose/Route: 5 mg Instruction: 1 x 5 mg tablet Condition: Thursday Dose/Route: 5 mg Instruction: 1 x 5 mg tablet Condition: Dose/Route: 2.5 mg Instruction: 1 x 2.5 mg tablet Condition: Thursday Dose/Route: 2.5 mg Instruction: 1 x 2.5 mg tablet Condition: Thursday Dose/Route: 5 mg Instruction: 1 x 5 mg tablet Protocol Text: Adjustment Start Date: Thursday10/27/22 INR Value: 2.9 INR Date: 10/27/22 Recheck Date: 12/01/22 clonidine HCl 0.1 mg tablet 0.1 mg PO BID Qty: 28 0RF warfarin 5 mg tablet 5 mg PO SUMOTUWESA Qty: 90 3RF Protocol: Dose Management Condition: Thursday Dose/Route: 5 mg Instruction: 1 x 5 mg tablet Condition: Thursday Dose/Route: 5 mg Instruction: 1 x 5 mg tablet Condition: Thursday Dose/Route: 5 mg Instruction: 1 x 5 mg tablet Condition: Thursday Dose/Route: 5 mg Instruction: 1 x 5 mg tablet Condition: Dose/Route: 2.5 mg Instruction: 1 x 2.5 mg tablet Condition: Thursday Dose/Route: 2.5 mg Instruction: 1 x 2.5 mg tablet Condition: Thursday Dose/Route: 5 mg Instruction: 1 x 5 mg tablet Protocol Text: Adjustment Start Date: Thursday10/27/22 INR Value: 2.9 INR Date: 10/27/22 Recheck Date: 12/01/22 hydralazine 100 mg tablet See Rx Instructions .ROUTE .COMPLEX Qty: 90 11RF Dose Instruction: TAKE 1 TABLET BY MOUTH THREE TIMES A DAY Rx Instructions: TAKE 1 TABLET BY MOUTH THREE TIMES A DAY Referrals / Follow Up: Beulah Dexter, REBA-C [Primary Care Provider] - Disposition Disposition (needs filled in before D/C Order can be placed): Home, Self Care
--- NOTE | 2022-11-26 12:40 | DS.PCM_ITS ---
Providers Date of Admission: 11/25/22 Date of Discharge: 11/26/22 Primary Care Physician: Beulah Dexter, PATIENT SERVICE ASSOCIATE-C Reason For Visit: TIA VERSUS CVA Diagnosis Discharge Diagnosis (1) Acute confusion: Status: Acute Code(s): R41.0 - Disorientation, unspecified Medications at Discharge Home Medications amlodipine 10 mg tablet 10 mg PO QHS 06/19/15 mometasone 110 mcg/actuation(30 doses) breath activated powder inhaler (Asmanex Twisthaler) 1 inh inhalation DAILY PRN Asthma 06/16/18 losartan 50 mg tablet 100 mg PO QHS 09/11/21 metformin 500 mg tablet,extended release 24 hr 500 mg PO BID 10/23/21 warfarin 2.5 mg tablet 2.5 mg PO THFR 12/20/21 clonidine HCl 0.1 mg tablet 0.1 mg PO BID #28 tabs 04/10/22 aspirin 81 mg tablet,delayed release (Adult Low Dose Aspirin) 81 mg PO DAILY 06/24/22 atorvastatin 40 mg tablet 40 mg PO QHS 06/24/22 cholecalciferol (vitamin D3) 50 mcg (2,000 unit) capsule 100 mcg PO .weekly 06/24/22 warfarin 5 mg tablet 5 mg PO SUMOTUWESA #90 tabs 07/21/22 hydralazine 100 mg tablet See Rx Instructions .Route .COMPLEX #90 tabs 08/11/22 Hospital Course Operations None Procedures - (CT brain without contrast, CTA head/neck, MRI brain without contrast) Summary of Care Provided Minutes Spent on Discharge: 23 Hospital Course: Patient is a 67-year-old male with history significant for recent CVA in 05/2022 with no significant residual deficits, morbid obesity, type 2 diabetes, hypertension and hyperlipidemia who presented to [facility] ED on 11/25/[address] brain without contrast showed no acute findings, mild atrophy with chronic periventricular white matter ischemic changes. CTA head/neck showed scattered atherosclerosis without evidence of cervical or or proximal intracranial vascular occlusion. MRI brain without contrast showed no evidence of acute or subacute ischemic infarct, few small chronic white matter changes in both cerebral hemispheres. Patient notably had TTE done in 05/2022 that showed no intracardiac shunt and no evidence of atrial dilation. EKG was nonacute. Labs were fairly benign. Given findings as above, CVA was ruled out. Unclear etiology for the event. 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 Noted that they unfortunately are having difficulties with her m cory, and he has been under significant stress lately. States he has intermittently been having episodes of confusion and difficulty thinking clearly, with the episode that brought him in being the most significant. Patient had no residual deficits noted on hospitalization day 2, and felt gener ally back to his baseline. Recommended that patient continue all home medications as prescribed. R ecommended that he see his PCP in the office in the next few weeks, and could consider evaluation for depression/anxiety in the setting of significant stress burden from caregiver burnout. Patient was discharged home in stable condition. Discharge diagnoses: ? Confusion, resolved; CVA ruled out ? Paroxysmal atrial fibrillation not on anticoagulation ? Hypertension ? Hyperlipidemia ? Asthma ? Type 2 diabetes ? Chronic back pain ? Morbid obesity ? MARQUES PCP follow-up: Can consider depression/anxiety screening as needed. Patient may benefit from resources for caregiver burnout as well. Total clinical time spent by myself addressing the patient's discharge needs: 38 minutes. Physical Exam Const alert, oriented x3, no apparent distress, healthy appearing and well nourished Constitutional Narrative: Pleasant male, morbidly obese, sitting comfortably in bedside chair, conversing normally, no acute distress. General Appearance: cooperative, comfortable, well kempt and well developed HEENT normocephalic, head/scalp atraumatic, hearing grossly normal bilaterally, nasal mucous membranes and turbinates normal and moist oral mucous membranes Eyes PERRL, EOMs intact bilaterally and conjunctivae normal Neck full ROM, no lymphadenopathy and supple Lymph Lymphatic: no lymphadenopathy noted Chest inspection of chest normal Resp normal respiratory effort, normal air movement, no use of accessory muscles and clear to auscultation bilaterally Cardio regular rate, regular rhythm, no murmurs and peripheral pulses 2+ throughout GI normal to inspection, nondistended, normoactive bowel sounds, soft to palpation, non-tender and non-distended Back/Spine normal ROM Extremity normal to inspection, full ROM and no pedal edema Skin no rashes or lesions noted Psych mental status grossly normal Weight / BMI Weight Weight: 172.5 kg Body Mass Index (BMI) 47.5 ABG / Lab / Microbiology Data 11/26/22 04:26 11/26/22 04:26 Laboratory: Laboratory Results - last 24 hr 11/25/22 20:25: WBC 8.9, RBC 4.80, Hgb 12.8 L, Hct 40.3, MCV 84.0, MCH 26.7 L, MCHC 31.8 L, RDW Std Deviation 43.4, RDW Coeff of Loret[place] 14.2, Plt Count 186, MPV 10.1, Immature Gran % (Auto) 0.500, Neut % (Auto) 60.1, Lymph % (Auto) 28.9, [place] % (Auto) 7.0, Eos % (Auto) 2.7, Baso % (Auto) 0.8, Absolute Neuts (auto) 5.3, Absolute Lymphs (auto) 2.56, Nucleated RBC % 0, PT 18.2 H, INR 1.5, Sodium 139, Potassium 3.6, Chloride 106, Carbon Dioxide 25.0, Anion Gap 8, BUN 21 H, Creatinine 1.06, Estim Creat Clear Calc 80.82, Est GFR (MDRD) Af Amer 89, Est GFR (MDRD) Non-Af 74, BUN/Creatinine Ratio 19.8, Glucose 180 H, Calcium 9.0, Magnesium 2.0, Total Bilirubin 0.30, AST 21, ALT 28, Alkaline Phosphatase 63, Total Protein 6.8, Albumin 3.1 L, Globulin 3.7, Albumin/Globulin Ratio 0.8 L 11/25/22 20:41: POC Glucose 174 H 11/25/22 20:55: Urine Color Yellow, Urine Clarity Clear, Urine pH 5.0, Ur Specific [place] 1.025, Urine Protein 30 H, Urine Glucose (UA) Normal, Urine Ketones Negative, Urine Occult Blood 25 H, Urine Nitrite Negative, Urine Bilirubin Negative, Urine Urobilinogen Normal, Ur Leukocyte Esterase 100 H, Urine RBC 10-25 SEEN, Urine WBC 10-25 SEEN, Ur Squamous Epith Cells 0-5 SEEN, Urine Bacteria 0 SEEN, Urine Mucus 2+ 11/26/22 04:26: WBC 7.8, RBC 4.78, Hgb 12.6 L, Hct 40.9, MCV 85.6, MCH 26.4 L, M CHC 30.8 L, RDW Std Deviation 44.9 H, RDW Coeff of [place] 14.3, Plt Count 179, MPV 10.3, Immature Gran % (Auto) 0.400, Neut % (Auto) 57.9, Lymph % (Auto) 31.0, [place] % (Auto) 7.1, Eos % (Auto) 2.7, Baso % (Auto) 0.9, Absolute Neuts (auto) 4.5, Absolute Lymphs (auto) 2.43, Nucleated RBC % 0, PT 18.8 H, INR 1.6, Sodium 140, Potassium 3.5, Chloride 108 H, Carbon Dioxide 26.0, Anion Gap 6, BUN 17, Creatinine 0.89, Estim Creat Clear Calc 96.26, Est GFR (MDRD) Af Amer 109, Est GFR (MDRD) Non-Af 90, BUN/Creatinine Ratio 19.0, Glucose 115 H, Hemoglobin A1c 7.0 H, Calcium 8.5, Total Bilirubin 0.40, AST 23, ALT 28, Alkaline Phosphatase 57, Total Protein 6.7, Albumin 3.0 L, Globulin 3.7, Albumin/Globulin Ratio 0.8 L , Triglycerides 126, Cholesterol 134, LDL Cholesterol 67, VLDL Cholesterol 25, HDL Cholesterol 42, TSH 3.02 11/26/22 07:00: POC Glucose 116 H 11/26/22 10:51: POC Glucose 159 H Radiography Diagnostic Testing: Radiology Impression Brain CT 11/25/22 19:09 IMPRESSION: Mild atrophy and periventricular white matter ischemic change. No acute bleed. If concern for acute infarct MRI recommended Electronically Signed: Parker Xiao MD at 20:04 EDT , Head/Neck CTA 11/25/22 23:08 IMPRESSION: Scattered atherosclerosis without evidence of cervical or proximal intracranial vascular occlusion or focal flow-limiting stenosis. Electronically Signed: Keo Johnson MD at 0:45 EDT , Brain MRI 11/26/22 05:55 IMPRESSION: 1. No MRI evidence of acute or subacute ischemic infarct or remote ischemic infarct. 2. Few small chronic white matter ischemic changes in both cerebral hemispheres. Electronically Signed: Mateo Arana MD at 10:50 EDT , D/C Instructions Discharge Diet: No restrictions Weight Bearing Status: Full weight bearing Pending Tests Upon Discharge: None Please Follow Up With: Beulah Dexter, PATIENT SERVICE ASSOCIATE-C When: In next 1 to 2 weeks Meaningful Use Info Meaningful Use Diagnoses (Choose all that apply): None applicable Discharge Plan Admission Admit Date/Time: 11/25/22 22:07 Primary Reason for Your Visit: Confusion, CVA rule out Attending Provider: Ray Webster Primary Care Provider: Beulah Dexter Consulting Providers: [facility] Story Instructions Additional Instructions / Restrictions: Continue all home medications as you have been taking. Recommend follow-up appointment with your primary care doctor in the next few weeks to discuss further evaluation for depression in the setting of significant caregiver fatigue. Could consider outpatient counseling plus or minus trialing low-dose antidepressant. Discharge Orders/Prescriptions Prescriptions: Continued Asmanex Twisthaler 110 mcg (30 doses) aerosol powdr breath activated 1 inh INHALATION DAILY PRN (Reason: Asthma) losartan 50 mg tablet 100 mg PO QHS Patient Comments: TAKE 2 TABLETS BY MOUTH EVERY DAY metformin 500 mg tablet extended release 24 hr 500 mg PO BID atorvastatin 40 mg tablet 40 mg PO QHS aspirin [Adult Low Dose Aspirin] 81 mg tablet,delayed release (DR/EC) 81 mg PO DAILY cholecalciferol (vitamin D3) 50 mcg (2,000 unit) capsule 100 mcg PO .weekly amlodipine 10 MG tablet 10 mg PO QHS Patient Comments: blood pressure warfarin 2.5 mg Tablet 2.5 mg PO THFR Protocol: Dose Management Condition: Thursday Dose/Route: 5 mg Instruction: 1 x 5 mg tablet Condition: Thursday Dose/Route: 5 mg Instruction: 1 x 5 mg tablet Condition: Thursday Dose/Route: 5 mg Instruction: 1 x 5 mg tablet Condition: Thursday Dose/Route: 5 mg Instruction: 1 x 5 mg tablet Condition: Dose/Route: 2.5 mg Instruction: 1 x 2.5 mg tablet Condition: Thursday Dose/Route: 2.5 mg Instruction: 1 x 2.5 mg tablet Condition: Thursday Dose/Route: 5 mg Instruction: 1 x 5 mg tablet Protocol Text: Adjustment Start Date: Thursday10/27/22 INR Value: 2.9 INR Date: 10/27/22 Recheck Date: 12/01/22 clonidine HCl 0.1 mg tablet 0.1 mg PO BID Qty: 28 0RF warfarin 5 mg tablet 5 mg PO SUMOTUWESA Qty: 90 3RF Protocol: Dose Management Condition: Thursday Dose/Route: 5 mg Instruction: 1 x 5 mg tablet Condition: Thursday Dose/Route: 5 mg Instruction: 1 x 5 mg tablet Condition: Thursday Dose/Route: 5 mg Instruction: 1 x 5 mg tablet Condition: Thursday Dose/Route: 5 mg Instruction: 1 x 5 mg tablet Condition: Dose/Route: 2.5 mg Instruction: 1 x 2.5 mg tablet Condition: Thursday Dose/Route: 2.5 mg Instruction: 1 x 2.5 mg tablet Condition: Thursday Dose/Route: 5 mg Instruction: 1 x 5 mg tablet Protocol Text: Adjustment Start Date: Thursday10/27/22 INR Value: 2.9 INR Date: 10/27/22 Recheck Date: 12/01/22 hydralazine 100 mg tablet See Rx Instructions .ROUTE .COMPLEX Qty: 90 11RF Dose Instruction: TAKE 1 TABLET BY MOUTH THREE TIMES A DAY Rx Instructions: TAKE 1 TABLET BY MOUTH THREE TIMES A DAY Referrals / Follow Up: Beulah Dexter NP-C [Primary Care Provider] - Disposition Disposition (needs filled in before D/C Order can be placed): Home, Self Care Charges/Coding Visit Charges Inpatient E&M: 38533 Disch Hosp
== END 2022-11-26 12:40 | disposition home or self-care (01) ==
LOC: ED 22:09 → PCU 22:16
PROVIDERS: Admitting Provider Family Medicine; Emergency Provider Emergency Medicine; PCP Nurse Practitioner Family; Visit Provider Hospitalist
DX: R41.0 Disorientation, unspecified (principal); E11.42 Type 2 diabetes mellitus with diabetic polyneuropathy; I48.0 Paroxysmal atrial fibrillation; E66.01 Morbid (severe) obesity due to excess calories; Z68.42 Body mass index [BMI] 45.0-49.9, adult; Z79.899 Other long term (current) drug therapy; G89.29 Other chronic pain; Z63.0 Problems in relationship with spouse or partner; J45.909 Unspecified asthma, uncomplicated; G47.33 Obstructive sleep apnea (adult) (pediatric); I10 Essential (primary) hypertension; M48.061 Spinal stenosis, lumbar region without neurogenic claudication; Z79.51 Long term (current) use of inhaled steroids; Z79.01 Long term (current) use of anticoagulants; E78.5 Hyperlipidemia, unspecified; K21.9 Gastro-esophageal reflux disease without esophagitis
CPT/HCPCS: 36415; 70450; 70496; 70498; 70551; 80053; 80061; 81001; 82962; 83036; 83735; 84443; 85025; 85610; 92523; 93005; 94002; 94668; 94762; 96360; 96361; 97161; 99221; 99283; J7030; Q9967; A4216; G0378

== ENCOUNTER 2022-12-04 15:30 | Outpatient (RCR) | payer MEDICARE, OTHER, SELFPAY ==
--- NOTE | 2022-11-06 13:13 | HP.PTEVAL_ITS ---
Patient's Visit Information Visit Information Visit Information: JONO PENA is a 67 year old M referred to Physical Therapy by REYNA Culver with a diagnosis of SI JOINT DYSFUNCTION. Date of Evaluation: 11/06/22 Physical Therapist: Serjio Gonzalez PT, Cert MDT, OCS Visit Plan Frequency: 2x /Week Duration: 4 Weeks Plan: [place] INTERVTIONS AQUATIC THERAPY FOR LUMBAR ROM ,DLS ,POSTURAL EX'S ,LE FLEXABLITY AND STRENGTHENING Subjective Subjective: This patient 67 y/o male presents to physical therapy with SI joint pain. This patient has lumbar pain many years/ Most recently, developed increase LS/SI pain along with paresthesia/tingling bilateral lower legs to feet. Patient also has right knee pain due to progressive DJD which needs TKR. Patient has had Durolane injections this past Thursday . Patient sees pain management Tues epidural injections. Medication hydrocodone ,gabapentin. No recent diagnostics. Patient has symmetrical lumbar pain radiating to right side. Aggravating factor walking/standing with increases paresthesia/tingling in feet ,difficulty with lifting. Alleviating injections and pain medication. Patient pain affects sleeping. coughing/sneezing+ .Bowel/bladder -.No abnormal night pain. No h/o of no trauma. Patient pain cane affects QOL and function. 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 Patient goals to decrease. SOCAIL: VOACTION: retired Objective Objective: POSTURE: mild forward posture ,hip/knees flexed GAIT: reciprocal pattern slow polly , hips/knees NEURO: c/o paresthesia/tingling reflexes L3-4,L4-5 ,L5-S1 1/3 MMT: quads/hams/hip flexion right 4-/5 ,left 4/5 except hip 4-/5 ,ankle 5/5 AROM: supine knee flexion 5-115 degrees supine knee flexion FLEXABLITY: hamstrings min tight PALPATION: tender right SI/SI LUMBAR ROM: flexion min loss ,extension severe loss pain ,side glides min/mod loss pain Special Tests L/S Slump test left side: Negative L/S Slump test right side: Negative L/S Left Straight Leg Raise: Negative L/S Right Straight Leg Raise: Negative Lumbar Standing: Flexion - Mechanical Response: No effect Lumbar Standing: Flexion - Symptoms During Testing: No effect Lumbar Standing: Flexion - Symptoms After Testing: No effect Lumbar Standing: Extension - Mechanical Response: No effect Lumbar Standing: Extension - Symptoms During Testing: Increases Lumbar Standing: Extension - Symptoms After Testing: No worse Lumbar Standing: Right Side Glides - Mechanical Response: No effect Lumbar Standing: Right Side Edmond - Symptoms During Testing: No effect Lumbar Standing: Right Side Edmond - Symptoms After Testing: No effect Lumbar Standing: Left Side Edmond - Mechanical Response: No effect Lumbar Standing: Left Side Edmond - Symptoms During Testing: No effect Lumbar Standing: Left Side Edmond - Symptoms After Testing: No effect Balance/Special Test Scores Oswestry Low Back Score: 32 Goals Goal 1:: Patient to be I with Aquatic therapy Goal Time Frame: 4-6 Weeks Goal 2:: Patient to demonstrate 50% improvement with less pain and improved function. Goal Time Frame: 4-6 Weeks Goal 3:: Patient to improve lumbar ROM for function of recovery to ties shoes Goal Time Frame: 4-6 Weeks Goal 4:: Patient to improve back oswestry score by 5 points to improve QOL. Goal Time Frame: 4-6 Weeks Goal 5:: patient to improve gait 80% with less symptoms in back and legs Goal Time Frame: 4-6 Weeks Rehabilitation Potential Physical Therapy Diagnosis: This patient has lumbar pain with possible stenosis with symptoms bilateral lower legs with symptoms worse with positioning and motion testing affects standing and walking impairs ADLS thus benefit from skilled PT Rehabilitation Potential: Good Anticipated Interventions Patient/Client Instruction: Educate patient on: Condition and Plan of Care For the Purpose of:: To decrease pain, To increase ROM, To improve muscle performance and motor function, To improve ability to perform ADL's, To increase tolerance to activity/condition/position, To improve ability of physical actions for home/community/work/leisure, To improve gait and locomotor functions, To improve health of tissue, To decrease soft tissue restriction and To increase flexibility/ROM Therapeutic Exercise to Include: Strength training, Balance training, Coordination, Postural training, Flexibilty training, In an aquatic setting and iNcho Exercises For the Purpose of:: To decrease pain, To increase ROM, To improve muscle performance and motor function, To improve ability to perform ADL's, To improve ability of physical actions for home/community/work/leisure, To improve health of tissue, To decrease soft tissue restriction and To increase flexibility/ROM Text: Thank you for the opportunity to evaluate your patient. For Medicare and Medicare HMO plans, please review the plan of care and approve it. It will need to be FAXED BACK to us at [phone] for Medicare purposes. For Medicare only, by signing this I certify the plan of care. Please let me know if there are questions or concerns regarding this plan of care. Physician Signature: Date:
--- NOTE | 2022-12-04 15:48 | HP.PTDCSUM ---
Discharge Summary D/C summary: It has been my pleasure to treat JONO PENA referred by Beulah Dexter, REBA-C, with the diagnosis of SI JOINT DYSFUNCTION for a total of 9 visit(s). Discharge Date: 12/04/22 Please see the following information for a summary of their discharge status. Subjective Subjective: Pain is quite a bit better. symptoms same same with walking but S1 pain is better just a ache Pain LBP: Pain Intensity (Out of 10): 1 Overall Improvement % Improvement: 90 Objective Objective/Function: Objective: POSTURE: mild forward posture ,hip/knees flexed GAIT: reciprocal pattern slow polly , hips/knees NEURO: c/o paresthesia/tingling reflexes L3-4,L4-5 ,L5-S1 1/3 MMT: quads/hams/hip flexion right 4/5 ,left 4/5 except hip 4-/5 ,ankle 5/5 AROM: supine knee flexion 5-110 degrees supine knee flexion FLEXABLITY: hamstrings min tight PALPATION: tender right SI/SI LUMBAR ROM: flexion min loss ,extension MOD loss pain ,side glides miNnloss pain Goals Goal 1:: Patient to be I with Aquatic therapy Goal Progress: Goal Met Goal 2:: Patient to demonstrate 50% improvement with less pain and improved function. Goal Progress: Goal Met Goal 3:: Patient to improve lumbar ROM for function of recovery to ties shoes Goal Progress: Goal Met Goal 4:: Patient to improve back oswestry score by 5 points to improve QOL. Goal Progress: Goal Met Goal 5:: patient to improve gait 80% with less symptoms in back and legs Plan Plan: D/C D/C Information Discharge Comments: aquatics d/c sentence: If there are questions or concerns regarding this patient's physical therapy, please feel free to call me at [phone]. Thank you for the referral of this patient. Sincerely, Serjio Gonzalez, PT, Cert MDT, OCS Balance/Gait/Functional tests Balance/Special Test Scores Oswestry Low Back Score: 10 Improvement % Improvement: 90
== END 2022-12-04 19:00 | disposition home or self-care (01) ==
LOC: PT 15:30
PROVIDERS: PCP Nurse Practitioner Family; Referring Provider Nurse Practitioner Family; Visit Provider Nurse Practitioner Family
DX: M53.3 Sacrococcygeal disorders, not elsewhere classified (principal)
CPT/HCPCS: 97113; 97162; 97530

== ENCOUNTER 2022-12-18 15:05 | Outpatient (RCR) | payer MEDICARE, OTHER, SELFPAY ==
[2022-12-11 11:51] LABS: International Normalized Ratio 1.7; Prothrombin Time (Protime)PT. 19.8 SECONDS (11.7-14.9)
[2022-12-18 16:19] LABS: International Normalized Ratio 1.6; Prothrombin Time (Protime)PT. 19.2 SECONDS (11.7-14.9)
== END 2022-12-18 18:00 | disposition home or self-care (01) ==
LOC: LAB 15:05
PROVIDERS: Internal Medicine Cardiovascular Disease; PCP Nurse Practitioner Family; Referring Provider Physician Assistant Medical; Visit Provider Physician Assistant Medical
DX: Z79.01 Long term (current) use of anticoagulants (principal); I48.0 Paroxysmal atrial fibrillation
CPT/HCPCS: 36415; 85610

== ENCOUNTER 2022-12-25 15:44 | Outpatient (RCR) | payer MEDICARE, OTHER, SELFPAY ==
[2022-12-25 17:07] LABS: International Normalized Ratio 2.1; Prothrombin Time (Protime)PT. 24.1 SECONDS (11.7-14.9)
[2022-12-25 18:04] LABS: AST(SGOT) 28 U/L (15-37); Alanine Aminotransfer ALT/SGPT 34 U/L (16-61); Albumin, Serum 3.3 g/dL (3.2-5.0); Alkaline Phosphatase 64 U/L (45-117); Bilirubin, Direct 0.12 mg/dL (0.00-0.30); Cholesterol 167 mg/dL (200); Globulin 4.3 g/dL (2.2-4.2); High Density Lipoprotein 41 mg/dL; Protein, Total 7.6 g/dL (6.4-8.2); Triglycerides 328 mg/dL; Very Low Density Lipoprotein 66 mg/dL (5-40)
== END 2022-12-25 18:00 | disposition home or self-care (01) ==
LOC: LAB 15:44
PROVIDERS: Internal Medicine Cardiovascular Disease; PCP Nurse Practitioner Family; Referring Provider Physician Assistant Medical; Visit Provider Physician Assistant Medical
DX: Z79.01 Long term (current) use of anticoagulants (principal); I48.0 Paroxysmal atrial fibrillation
CPT/HCPCS: 36415; 80061; 80076; 85610

== ENCOUNTER 2023-01-08 13:45 | Emergency (ER) | payer MEDICARE, OTHER, SELFPAY ==
[2023-01-08 13:46] VITALS: BP 158/88; PULSE 80; RESP 14; TEMP 36.2; O2SAT 96; BMI 47.5
--- NOTE | 2023-01-08 14:18 | CT_ITS ---
We are attempting to reach an attending provider to discuss findings. An addendum with communication details will be sent when the communication is complete. EXAM: CT ABDOMEN AND PELVIS WITHOUT INTRAVENOUS CONTRAST CLINICAL INDICATION: flank pain TECHNIQUE: Helically acquired images were obtained of the abdomen and pelvis without intravenous contrast. This CT exam was performed using one or more of the following dose reduction techniques: automated exposure control, adjustment of the mA and/or kV according to patient size, and/or use of iterative reconstruction technique. RADIATION DOSE: CTDIvol = 24.18 mGy, DLP = 1401.50 mGy-cm COMPARISON: No relevant prior studies available. FINDINGS: LOWER THORAX: Mild right posterior pleural thickening. Lung bases are clear. Normal cardiac size. Normal pericardium. Minimal calcification in the included portions of the proximal circumflex branch and distal LAD branch of the left coronary artery. ABDOMEN: LIVER: Unremarkable. Homogeneous. GALLBLADDER AND BILE DUCTS: Unremarkable. No calcified gallstones. No gallbladder distention or wall edema. No intra- or extrahepatic biliary ductal dilation. PANCREAS: Unremarkable. No focal cystic mass. SPLEEN: Unremarkable. Normal size without focal cystic or solid mass. ADRENALS: Unremarkable. No nodules. KIDNEYS AND URETERS: Abnormal slightly hyperdense right perinephric mass worrisome for lymphoma. There is stranding of the fat in the caudal half of the right perinephric space. No right hydronephrosis. 6 mm nonobstructing stone cortex of the right kidney. Normal left kidney. Normal renal size and position. STOMACH AND BOWEL: Unremarkable. No stomach or bowel distention. No focal inflammatory change. PELVIS: APPENDIX: The appendix is not visualized but there are no secondary signs of acute appendicitis. BLADDER: Unremarkable. REPRODUCTIVE: Unremarkable as visualized. No mass. ABDOMEN and PELVIS: INTRAPERITONEAL SPACE: Unremarkable. No ascites or other fluid collection. No free air. BONES/JOINTS: Unremarkable. No suspicious lytic or blastic abnormality. SOFT TISSUES: Unremarkable. No discrete abdominal or pelvic wall hernia. VASCULATURE: See above. LYMPH NODES: Unremarkable. No enlarged lymph nodes. CT/Abdomen/Pelvis without Cont IMPRESSION: 1. Hyperdense mass in the right perinephric space with stranding in the caudal half of the right perinephric fat. The thickness of the right perirenal space mass is 4.5 cm in diameter. Malignant neoplasm such as lymphoma is worrisome rather than hematoma. CTA of the abdomen and pelvis from the helpful for further evaluation to include delayed postcontrast CT of the abdomen and pelvis. 2. 6 mm nonobstructing stone in the medial cortex of the right kidney. No right hydronephrosis. Electronically Signed: Mateo Arana MD at 15:39 EDT ,
--- NOTE | 2023-01-08 14:38 | ED.VIS.GI ---
HPI HPI - GI History of Present Illness Chief Complaint: Abd Pain Informant: patient Narrative Narrative: Presents to the ED after seeing cardiology office. He followed up due to palpitations with history of A-fib today. He is on warfarin. States had blood work was called due to his hemoglobin being lower was told go to ED. Review of records hemoglobin 10.9. Denies rectal bleeding. However reports pain right lower abdomen rating to his flank for 3 days with nausea and vomiting. He has had an appendectomy. There is no fevers. He had difficulty urinating with malodorous spell. No history of kidney stones. He denies any cardiac stents. Denies heart failure. Prior similar symptoms: No PFSH PFSH Medical History A-fib Arthritis Asthma Back pain BiPAP (biphasic positive airway pressure) dependence Bladder disease Cancer Cardiology follow-up encounter Chronic back pain CVA (cerebral vascular accident) (~06/19/22) Dietary restriction Essential hypertension Fatty liver GERD (gastroesophageal reflux disease) Gout History of echocardiogram History of edema History of pain when walking History of steroid therapy History of stress test History of ulceration Hypertension Hypertension Inguinal hernia LDL (low density lipoprotein receptor disorder) Leg cramps Lightheaded Low iron Morbid obesity Non-smoker PAF (paroxysmal atrial fibrillation) Peripheral neuropathy Persistent atrial fibrillation Restless legs Shortness of breath on exertion Spinal stenosis Thoracic aortic aneurysm without rupture Type 2 diabetes mellitus Home Medications amlodipine 10 mg tablet 10 mg PO QHS 06/19/15 [History Last Taken 06/18/15] mometasone 110 mcg/actuation(30 doses) breath activated powder inhaler (Asmanex Twisthaler) 1 inh inhalation DAILY PRN Asthma 06/16/18 [History Last Taken Unknown] losartan 50 mg tablet 100 mg PO QHS 09/11/21 [History Last Taken Unknown] metformin 500 mg tablet,extended release 24 hr 500 mg PO BID 10/23/21 [History Last Taken Unknown] clonidine HCl 0.1 mg tablet 0.1 mg PO BID #28 tabs 04/10/22 [Rx Last Taken Unknown] aspirin 81 mg tablet,delayed release (Adult Low Dose Aspirin) 81 mg PO DAILY 06/24/22 [History Last Taken Unknown] atorvastatin 40 mg tablet 40 mg PO QHS 06/24/22 [History Last Taken Unknown] hydralazine 100 mg tablet See Rx Instructions .Route .COMPLEX #90 tabs 08/11/22 [Rx Last Taken Unknown] warfarin 5 mg tablet 5 mg PO DAILY 01/08/23 [History Last Taken Unknown] Allergy/AdvReac Type Severity Reaction Status Date / Time doxazosin [From Cardura] Allergy Intermediate tired Verified 01/08/23 13:46 levofloxacin [From Levaquin] Allergy Intermediate tendonitis Verified 01/08/23 13:46 Family History Mother Heart disease Diabetes Hypertension Father Hypertension Surgical History History of appendectomy History of arthroscopic knee surgery History of cardioversion (10/30/21) History of carpal tunnel surgery of left wrist History of carpal tunnel surgery of right wrist Hx of hammer toe correction Social History household members: spouse Smoking Status: Never smoker alcohol intake: never substance use type: does not use caffeine: Yes Type: carbonated beverages, coffee and tea ROS ROS ED Constitutional Constitutional ED: Denies chills, fever(s) or sweats Eyes Eyes: Denies change in vision ENT ENT ED: Denies dysphagia or sore throat Cardiovascular Cardiovascular: Denies chest pain, leg edema, palpitations or racing heartbeat Respiratory/Chest Respiratory/Chest: Denies cough, dyspnea or dyspnea on exertion Gastrointestinal Gastrointestinal: Reports abdominal pain, nausea and vomiting; Denies diarrhea Genitourinary Genitourinary ED: Reports other Details: Malodorous urine. ; Denies dysuria, hematuria or urinary frequency Musculoskeletal Musculoskeletal: Denies back pain, extremity pain or neck pain Integumentary Denies rash or wounds Neurologic Neurologic: Denies headache(s), paresthesias or weakness EXAM Physical Exam Const Vital Signs: 01/08/23 13:46 Temperature 97.1 F L Temperature Source Temporal Pulse Rate 80 Respiratory Rate 14 Blood Pressure 158/88 H Blood Pressure Mean 111 Pulse Ox 96 Oxygen Delivery Method Room Air Positive well nourished and well developed General Appearance ED: well developed and NAD HEENT HEENT Narrative: Mild dry mucosal member normocephalic and atraumatic Eyes PERRL, EOMs intact bilaterally and conjunctivae normal General Eye ED: Yes normal appearance of both eyes Neck no lymphadenopathy and supple General: Negative for tenderness Chest Wall Chest: Negative for tenderness Resp normal respiratory effort and normal air movement Effort and Inspection: symmetric chest movement; Negative for respiratory distress Cardio regular rate, regular rhythm and no murmurs Peripheral Pulses: pulses 2+ throughout GI normal to inspection, nondistended, normoactive bowel sounds GI Narrative: Mild pain right side abdomen there is no guarding or rebound. No rash Palpation: Negative for guarding or rebound tenderness present Back/Spine no CVA tenderness and no thoracic nor lumbar tenderness Extremity normal to inspection General Extremety ED: Negative for edema or tenderness General Extremity: Negative for edema Neuro oriented x3 and no sensory deficits noted Sensorium / Orientation: awake and alert Skin no rashes or lesions noted and no wounds MDM MDM MDM Narrative Medical decision making narrative: Interventions / MDM: Differential diagnosis: Flank pain, kidney stone, retroperitoneal hemorrhage, kidney mass Diagnosis considered but do not suspect: N/A My EKG interpretation: N/A Imaging independently reviewed and interpreted by myself: CT abdomen pelvis without contrast: Kidney mass lymphoma, possible hemorrhage, nonobstructive 6 mm stone. Perinephric stranding. Also read by radiology. CTA abdomen pelvis with delayed CT pending: External documents reviewed: N/A Test considered but not ordered:N/A ED course: Presenting with difficulty urinating waxing waning pain on right side. History of appendectomy. Renal stone protocol initiated. From labs had a white count of 16 creatinine 1.6 GFR 44 up from previous normal levels. Fluids given Zofran morphine. INR sent along with lipase and liver enzymes. CT abdomen pelvis for further evaluation. 1600: Discussed CT read with radiologist, he states more concerning potential kidney mass of lymphoma however with perinephric stranding and him on Coumadin potential hemorrhage also. He recommended CT angiograms abdomen pelvis to rule out aneurysms with any bleeds and a delayed postcontrast CT for mass evaluation. Discussed the plan with CT department. Discussed this with the patient. He is continued IV fluids his GFR is 44. INR level at 2.7. Normal lipase and liver enzymes. Urine result is pending at this time. 1650: Urine noting infection. Culture sent. Rocephin. Pending CTA read. Signed out to Dr. Kerns. Re-evaluation: stable Disposition discussed with patient/family/significant other: Case discussed with consulting clinician: This note was generated with [employer] software. It may contain incorrect words, spelling, and punctuation that were not noted in checking the note before signing. Lab Data Attestation: I reviewed the patient's lab results. Labs: Laboratory Results - last 24 hr 01/08/23 01/08/23 01/08/23 09:42 14:47 15:24 PT 28.7 H INR 2.7 APTT 43.6 H Total Bilirubin 0.80 Direct Bilirubin 0.32 H AST 27 ALT 24 Alkaline Phosphatase 50 Total Protein 7.1 Albumin 3.0 L Globulin 4.1 Lipase 29 Urine Color [place] Urine Clarity Clear Urine pH 5.0 Ur Specific [place] 1.025 Urine Protein 100 H Urine Glucose (UA) Normal Urine Ketones Negative Urine Occult Blood 25 H Urine Nitrite Negative Urine Bilirubin Negative Urine Urobilinogen Normal Ur Leukocyte Esterase 500 H Urine RBC 0-5 SEEN Urine WBC 5-10 SEEN Ur Squamous Epith Cells 0-5 SEEN Calcium Oxalate Crystal RARE Urine Bacteria RARE Urine Mucus 0 SEEN Radiography Diagnostic Testing: Clinical Impression(s) from Imaging Studies Abdomen/Pelvis CT 01/08/23 14:18 IMPRESSION: 1. Hyperdense mass in the right perinephric space with stranding in the caudal half of the right perinephric fat. The thickness of the right perirenal space mass is 4.5 cm in diameter. Malignant neoplasm such as lymphoma is worrisome rather than hematoma. CTA of the abdomen and pelvis from the helpful for further evaluation to include delayed postcontrast CT of the abdomen and pelvis. 2. 6 mm nonobstructing stone in the medial cortex of the right kidney. No right hydronephrosis. Electronically Signed: Mateo Arana MD at 15:39 EDT , ADDENDUM: 01/08/23 2911 IMPRESSION: 1. Hyperdense mass in the right perinephric space with stranding in the caudal half of the right perinephric fat. The thickness of the right perirenal space mass is 4.5 cm in diameter. Malignant neoplasm such as lymphoma is worrisome rather than hematoma. CTA of the abdomen and pelvis from the helpful for further evaluation to include delayed postcontrast CT of the abdomen and pelvis. 2. 6 mm nonobstructing stone in the medial cortex of the right kidney. No right hydronephrosis. N.B. : The above Results were Read Back by Mateo Arana MD to Brennen Bagley MD, and understanding confirmed on 01/08/2023 15:56:14 (ET). Electronically Signed: Mateo Arana MD at 15:39 EDT Reading Location ID and State: [facility] / [place] , Service support , Discharge Plan Triage Chief Complaint: Abd Pain ED Provider: Brennen Bagley Dx/Rx/DC Orders Clinical Impression: Acute right flank pain, Chronic anticoagulation, PAF (paroxysmal atrial fibrillation), Renal mass, right, DEBORAH (acute kidney injury) Prescriptions: No Action Asmanex Twisthaler 110 mcg (30 doses) aerosol powdr breath activated 1 inh INHALATION DAILY PRN (Reason: Asthma) losartan 50 mg tablet 100 mg PO QHS Patient Comments: TAKE 2 TABLETS BY MOUTH EVERY DAY metformin 500 mg tablet extended release 24 hr 500 mg PO BID atorvastatin 40 mg tablet 40 mg PO QHS aspirin [Adult Low Dose Aspirin] 81 mg tablet,delayed release (DR/EC) 81 mg PO DAILY amlodipine 10 MG tablet 10 mg PO QHS Patient Comments: blood pressure clonidine HCl 0.1 mg tablet 0.1 mg PO BID Qty: 28 0RF warfarin 5 mg tablet 5 mg PO DAILY Protocol: Dose Management Condition: Thursday Dose/Route: 5 mg Instruction: 1 x 5 mg tablet Condition: Thursday Dose/Route: 5 mg Instruction: 1 x 5 mg tablet Condition: Thursday Dose/Route: 5 mg Instruction: 1 x 5 mg tablet Condition: Thursday Dose/Route: 5 mg Instruction: 1 x 5 mg tablet Condition: Dose/Route: 5 mg Instruction: 1 x 5 mg tablet Condition: Thursday Dose/Route: 7.5 mg Instruction: 1 x 2.5 mg tablet, 1 x 5 mg tablet Condition: Thursday Dose/Route: 5 mg Instruction: 1 x 5 mg tablet Protocol Text: Adjustment Start Date: Thursday12/26/22 INR Value: 2.1 INR Date: 12/25/22 Recheck Date: 01/16/23 hydralazine 100 mg tablet See Rx Instructions .ROUTE .COMPLEX Qty: 90 11RF Dose Instruction: TAKE 1 TABLET BY MOUTH THREE TIMES A DAY Rx Instructions: TAKE 1 TABLET BY MOUTH THREE TIMES A DAY Primary Care Provider: Beulah Dexter Referrals: Beulah Dexter, OFFICE NURSE PRACTITIONER-C [Primary Care Provider] -
[2023-01-08] MEDS: Ondansetron 4 MG/2 ML Vial IV ×2 (14:43→20:26)
[2023-01-08] MEDS: Morphine 4 MG/ML Syringe IV ×3 (14:43→23:50)
[2023-01-08] MEDS: 0.9% Normal Saline (500mL Bag) 500 ML 1000 ML IV (14:44)
[2023-01-08 15:06] LABS: International Normalized Ratio 2.7; Partial Thromboplast Time 43.6 Seconds (24.1-36.2); Prothrombin Time (Protime)PT. 28.7 SECONDS (11.7-14.9)
[2023-01-08 15:19] LABS: Lipase 29 U/L (13-75)
[2023-01-08 15:31] LABS: Mucous, Urine 0 SEEN /hpf (<or=2+)
[2023-01-08 15:32] LABS: AST(SGOT) 27 U/L (15-37); Alanine Aminotransfer ALT/SGPT 24 U/L (16-61); Alkaline Phosphatase 50 U/L (45-117); Bilirubin, Direct 0.32 mg/dL (0.00-0.30); Globulin 4.1 g/dL (2.2-4.2); Protein, Total 7.1 g/dL (6.4-8.2)
[2023-01-08 15:50] LABS: Color, Urine Amber (Yellow); Glucose, Dipstick Normal (Normal); Ketone-Dipstick Negative (Negative); Leukocyte Esterase-Dipstick 500 /ul (Negative); Nitrite-Dipstick Negative (Negative); Occult Blood-Urine 25 /ul (Negative); Protein-Dipstick 100 mg/dl (Negative); Specific Gravity, Urine 1.025 (1.002-1.030); Urine Bilirubin Dipstick Negative (Negative); Urine Clarity Clear (Clear); Urine Urobilinogen Normal (Normal)
--- NOTE | 2023-01-08 16:00 | CT_ITS ---
INDICATION: flank pain -- include delayed postcontrast CT scan aslo MULTI-PHASE PROTOCOL EXAMINATION: CTA abdomen and pelvis - TECHNIQUE: Routine abdominal CT angiogram protocol was performed with IV contrast. MIP images provided. A radiation dose optimization technique was used for this scan. IV Contrast dosage and agent: 100 mL [id number] Radiation dose DLP 5163.5 mGy / cm. COMPARISON: January 08, 2023 FINDINGS: Lung bases: Small right pleural effusion and mild compressive atelectasis in the right lower lobe. Liver: Nonspecific fatty infiltrated liver without mass or bile duct dilatation. Gallbladder: Tiny calcified gallstones without evidence for acute inflammation Spleen: Normal. Adrenal gland: Normal. Kidneys: Left kidney is normal. The right kidney is severely diffusely enlarged and there is extensive stranding in the perinephric fat as well as the anterior and posterior pararenal spaces. On the venous phase, there appears to be relatively homogeneous and minimal of the renal parenchyma however there is suggestion of large nonenhancing relatively hyperattenuated subcapsular lesion. The renal collecting system and renal sinus fat is poorly visualized on the delayed images and there is only a trace of contrast noted within the renal pelvis and proximal ureter however no contrast is seen within the renal calyces raising question of tumor or hemorrhage within the collecting system. There is a 5 mm calculus within the proximal right ureter Pancreas:Normal. Bowel gas pattern: Nonobstructive. Appendix: No evidence for acute appendicitis Free air: None. Free fluid: None. Pelvis: Pelvic organs: Prostate is enlarged and compressing upon the base of the bladder which is incompletely distended and thick walled. Bone survey: Lumbar spine demonstrates degenerative changes No aggressive bony lesions. No acute fractures. Adenopathy: No significant pathologic adenopathy detected. Other: Small fat-containing left inguinal hernia. Vascular: Atherosclerotic changes of the aorta without evidence for aneurysm CT/CTA Abd/Pelvis W/WO Contrast IMPRESSION: Findings suggestive of large subcapsular mass of the right kidney with possible extension into the renal calyces in association with extensive stranding in the perinephric fat possibly representing hemorrhage although tumor is not excluded. Recommend correlation with ultrasound or possibly MRI for further assessment Electronically Signed: Parker Xiao MD at 17:00 EDT ,
[2023-01-08] MEDS: 0.9% Normal Saline (1000mL) 1,000 ML 150 ML IV (16:31)
[2023-01-08 16:48] LABS: Calcium Oxalate Crystals Ur RARE /hpf (<or=2+); Red Blood Cells-Urine 0-5 SEEN /hpf (0-5); White Blood Cells 5-10 SEEN /hpf (0-5)
[2023-01-08 16:49] LABS: Bacteria RARE /hpf (None Seen); Squamous Epithelial Cells - UA 0-5 SEEN /hpf (0-5)
[2023-01-08] MEDS: Ceftriaxone 1 GM/50 ML BAG IV (17:33)
[2023-01-08 17:35] VITALS: BP 141/73; PULSE 68; RESP 16; O2SAT 97
[2023-01-08 19:24] VITALS: PULSE 69; RESP 16; O2SAT 94
[2023-01-08 20:28] VITALS: BP 164/75; PULSE 71; RESP 19
--- NOTE | 2023-01-08 20:52 | ED.RN ---
patients called in and update given at this time. will call with update [phone]
[2023-01-08 22:56] VITALS: BP 172/75; PULSE 74; RESP 22; O2SAT 92
[2023-01-08] MEDS: Metoclopramide 10 MG/2 ML Vial 5 MG IV (23:50)
== END 2023-01-09 00:14 | disposition short-term general hospital (02) ==
LOC: ED 14:22
PROVIDERS: Emergency Provider Emergency Medicine; PCP Nurse Practitioner Family; Visit Provider Emergency Medicine
DX: R10.9 Unspecified abdominal pain (principal); N17.9 Acute kidney failure, unspecified; E11.42 Type 2 diabetes mellitus with diabetic polyneuropathy; I48.0 Paroxysmal atrial fibrillation; M54.9 Dorsalgia, unspecified; I10 Essential (primary) hypertension; R11.2 Nausea with vomiting, unspecified; Z79.01 Long term (current) use of anticoagulants; Z86.73 Personal history of transient ischemic attack (TIA), and cerebral infarction without residual deficits; N28.89 Other specified disorders of kidney and ureter; N20.0 Calculus of kidney; J90 Pleural effusion, not elsewhere classified; K76.0 Fatty (change of) liver, not elsewhere classified
CPT/HCPCS: 36415; 71046; 74174; 74176; 80048; 80076; 81001; 83690; 83735; 83880; 84439; 84443; 85025; 85610; 85730; 87086; 87088; 99284; J7030; J7040; Q9967; A4216; J2405

== ENCOUNTER → 2023-01-08 | Outpatient (CLI) | payer MEDICARE, OTHER, SELFPAY ==
--- NOTE | 2023-01-08 09:30 | RAD_ITS ---
STUDY: X-RAY CHEST REASON FOR EXAM: Male, 67 years old. Shortness of breath. TECHNIQUE: Frontal and lateral views of the chest. COMPARISON: None. FINDINGS: Low volume inspiration with elevation of the right hemidiaphragm. Minimal right basilar atelectasis. There is no demonstrated pleural abnormality. Borderline cardiomegaly. Normal mediastinum and martha. Normal visualized pulmonary arteries. Aortic tortuosity with calcification. Diffuse moderate thoracic spondylosis. Normal visualized ribs, clavicles, and shoulders. No abnormality of the visualized soft tissue structures of the upper abdomen. RAD/Chest PA and Lateral IMPRESSION: Cardiomegaly with low volume inspiration and no acute or active cardiopulmonary disease Electronically Signed: Chao Patel MD at 9:51 EDT ,
[2023-01-08 10:55] LABS: Absolute Lymphocyte Count 3.31 X10^3/uL (0.83-4.51); Absolute Neutrophil Count 10.8 X10^3/uL (2.0-7.7); Basophil# 0.07 X10^3/uL; Basophil% 0.4 % (0-1); Eosinophil# 0.19 X10^3/uL; Eosinophils% 1.2 % (0-5); Hematocrit 33.7 % (40-54); Hemoglobin 10.9 g/dL (13.0-16.5); Lymphocyte # 3.31 X10^3/ul (0.83-4.51); Lymphocyte % 20.8 % (19-41); Mean Corp Hgb Conc 32.3 g/dL (32-36); Mean Corpuscular Hgb 26.6 pg (27.0-32.0); Mean Corpuscular Volume 82.2 fL (80-94); Mean Platelet Vol. 10.6 fl (6.2-12.0); Monocyte# 1.42 X10^3/uL; Monocyte% 8.9 % (0-10); NRBC Flagged by Analyzer 0 % (0-5); Neutrophil # 10.78 X10^3/uL (2.7-7.7); Platelet Count 228 K/mm3 (150-450); RBC Distribution Width CV 14.6 % (11.6-14.6); RBC Distribution Width SD 43.3 fl (35.1-43.9); White Blood Count 15.9 K/mm3 (4.4-11.0)
[2023-01-08 11:17] LABS: BNP,B-Type NATRIURETIC PEPTIDE 47.7 pg/mL (0-100)
[2023-01-08 11:32] LABS: Anion Gap 9 (5-15); BUN 19 mg/dL (7-18); BUN/Creat Ratio 11.4 RATIO (10-20); Chloride 102 mmol/L (98-107); Creatinine, Serum 1.66 mg/dL (0.70-1.30); EST Glomerular Filtration Rate 44 mL/min (>60); Est Glom Filt Rate - Afr Amer 53 mL/min (>60); Glucose 218 mg/dL (74-106); Magnesium 2.2 mg/dL (1.6-2.6); Potassium 3.6 mmol/L (3.5-5.1); Sodium Level 135 mmol/L (136-145); T4 Free Direct 1.31 ng/dL (0.76-1.46); Thyroid Stim Hormone (TSH) 2.23 uIU/mL (0.358-3.74)
== END | disposition home or self-care (01) ==
LOC: RAD 09:28
PROVIDERS: PCP Nurse Practitioner Family; Referring Provider Nurse Practitioner Family; Visit Provider Nurse Practitioner Family
DX: R06.00 Dyspnea, unspecified (principal); I48.0 Paroxysmal atrial fibrillation
CPT/HCPCS: 36415; 71046; 80048; 83735; 83880; 84439; 84443; 85025

== ENCOUNTER → 2023-02-05 | Outpatient (CLI) | payer MEDICARE, OTHER, SELFPAY ==
--- NOTE | 2023-02-05 14:02 | VDLE_ITS ---
Reason For Study: Rt Leg Pain RIGHT LEFT GSV is normal. CFV is compressible, spontaneous, phasic, CFV is compressible, spontaneous, phasic, competent, and demonstrates normal competent and demonstrates normal augmentation. augmentation. FV is compressible, spontaneous, phasic, FV is compressible, spontaneous, phasic, competent and demonstrates normal competent and demonstrates normal augmentation. augmentation. POP V is compressible, spontaneous, and POP V is compressible, spontaneous, phasic, phasic. competent and demonstrates normal T/P Trunk is compressible. augmentation. PTV is compressible. T/P Trunk is compressible. LT PerV is compressible. PTV is compressible. Acute deep vein thrombosis is noted in the RT PerV is compressible. Gastrocnemius V. It is dilated and Procedure NONCOMPRESSIBLE. This is a venous duplex using B-mode, color flow and spectral Doppler. Exam performed in department. The exam was diagnostic. A preliminary report was called and/or faxed to [facility] Phone RN / Dr. Hagen. VL/Venous Duplex US - Gavin Extrem Interpretation Summary There is no evidence of right lower extremity deep vein thrombosis. Acute deep venous thrombosis left gastrocnemius vein Patent and compressible bilateral great saphenous vein Ordering Physician: Beulah Dexter Performed By: Augustine Roque RVT
== END | disposition home or self-care (01) ==
PROVIDERS: PCP Nurse Practitioner Family; Visit Provider Nurse Practitioner Family
DX: M79.604 Pain in right leg (principal)
CPT/HCPCS: 93970

== ENCOUNTER 2023-02-11 16:24 | Emergency (ER) | payer MEDICARE, OTHER, SELFPAY ==
[2023-02-11 16:25] VITALS: BP 142/99; PULSE 70; RESP 16; TEMP 36.4; O2SAT 99; BMI 45.5
[2023-02-11 16:55] VITALS: BP 123/67; PULSE 68; RESP 20; O2SAT 98
--- NOTE | 2023-02-11 17:06 | CT_ITS ---
STUDY: CT BRAIN WITHOUT CONTRAST REASON FOR EXAM: Male, 68 years old. syncope RADIATION DOSAGE (If Supplied By Facility): CTDIvol = ( 44.99 ) mGy, DLP = ( 914.22 ) mGycm TECHNIQUE: Transaxial CT imaging of the brain was performed without administration of intravenous contrast material. Individualized dose optimization techniques were used for this CT. COMPARISON: 11/25/2022 FINDINGS: Normal soft tissue structures. Normal calvarium. There is mild cerebral atrophy with widening of the extra-axial spaces and ventricular dilatation. There are areas of decreased attenuation within the white matter tracts of the supratentorial brain, consistent with microvascular disease changes. Normal basal ganglia and thalami. Normal brainstem. Normal cerebellum. There is no intracranial hemorrhage. There are no findings of an acute ischemic infarction. Normal visualized paranasal sinuses. CT/Brain/Head without Contrast IMPRESSION: No acute intracranial hemorrhage or mass effect. Electronically Signed: Aden Olsen MD ([place]oks) at 17:50 EST ,
--- NOTE | 2023-02-11 17:08 | EX.ED.DYSGE1 ---
HPI History of Present Illness Chief Complaint: Syncope Detail of Chief Complaint: Dizziness and syncope Informant: patient Narrative Narrative: Patient presents to the emergency department with complaint of syncopal episode since yesterday. Patient states that he had recent admissions in [place] because of bleeding to his right kidney. He subsequently developed a DVT when they discontinued his Coumadin. Patient was started on Eliquis 3 days ago. Yesterday he woke up and when he would turn his head he felt like his eyes were moving back and forth and he would pass out for 3 to 4 seconds. Head position makes him feel dizzy and feel like things are moving around. Patient called his business services tech who advised him to come to the emergency department to be evaluated for an intracranial hemorrhage. Patient has history of prior intracranial hemorrhage. He denies falls or head injuries. He denies recent illness. He has had history of vertigo in the past. [facility] Medical History (Updated 02/11/23 @ 20:[address] Leanne Ferraro, DO) A-fib Arthritis Asthma Back pain BiPAP (biphasic positive airway pressure) dependence Bladder disease Cancer Cardiology follow-up encounter Chronic back pain CVA (cerebral vascular accident) (~06/19/22) Dietary restriction Essential hypertension Fatty liver GERD (gastroesophageal reflux disease) Gout Hemorrhage of right kidney History of echocardiogram History of edema History of pain when walking History of steroid therapy History of stress test History of ulceration Hypertension Hypertension Inguinal hernia LDL (low density lipoprotein receptor disorder) Leg cramps Lightheaded Low iron Morbid obesity Non-smoker PAF (paroxysmal atrial fibrillation) Peripheral neuropathy Persistent atrial fibrillation Restless legs Shortness of breath on exertion Spinal stenosis Thoracic aortic aneurysm without rupture Type 2 diabetes mellitus Home Medications amlodipine 10 mg tablet 10 mg PO QHS 06/19/15 [History Last Taken 06/18/15] mometasone 110 mcg/actuation(30 doses) breath activated powder inhaler (Asmanex Twisthaler) 1 inh inhalation DAILY PRN Asthma 06/16/18 [History Last Taken Unknown] losartan 50 mg tablet 100 mg PO QHS 09/11/21 [History Last Taken Unknown] metformin 500 mg tablet,extended release 24 hr 500 mg PO BID 10/23/21 [History Last Taken Unknown] clonidine HCl 0.1 mg tablet 0.1 mg PO BID #28 tabs 04/10/22 [Rx Last Taken Unknown] atorvastatin 40 mg tablet 40 mg PO QHS 06/24/22 [History Last Taken Unknown] hydralazine 100 mg tablet See Rx Instructions .Route .COMPLEX #90 tabs 08/11/22 [Rx Last Taken Unknown] apixaban 5 mg tablet (Eliquis) 5 mg PO BID 02/09/23 [History Last Taken Unknown] duloxetine 30 mg capsule,delayed release 30 mg PO DAILY 02/11/23 [History Last Taken Unknown] meclizine 25 mg chewable tablet (Antivert) 25 mg PO TID PRN dizziness #30 tabs 02/11/23 [Rx Last Taken Unknown] ondansetron HCl 4 mg tablet 4 mg PO Q8H PRN nausea and vomiting 02/11/23 [History Last Taken Unknown] Allergy/AdvReac Type Severity Reaction Status Date / Time doxazosin [From Cardura] Allergy Intermediate tired Verified 01/27/23 15:53 levofloxacin [From Levaquin] Allergy Intermediate tendonitis Verified 01/27/23 15:53 Family History Mother Heart disease Diabetes Hypertension Father Hypertension Surgical History History of appendectomy History of arthroscopic knee surgery History of cardioversion (10/30/21) History of carpal tunnel surgery of left wrist History of carpal tunnel surgery of right wrist Hx of hammer toe correction Social History household members: spouse Smoking Status: Never smoker alcohol intake: never substance use type: does not use caffeine: Yes Type: carbonated beverages, coffee and tea ROS ROS ED Review of Systems ROS Unobtainable: other Constitutional Constitutional ED: Reports lethargy; Denies chills, fever(s), sweats or weight loss Eyes Eyes: Denies blurry vision, change in vision or diplopia ENT ENT ED: Denies rhinorrhea or sore throat Cardiovascular Cardiovascular: Denies chest pain, orthopnea or racing heartbeat Respiratory/Chest Respiratory/Chest: Denies cough, dyspnea, dyspnea on exertion, orthopnea or sputum Gastrointestinal Gastrointestinal: Denies abdominal pain, diarrhea, nausea or vomiting Genitourinary Genitourinary ED: Denies dysuria, hematuria or urinary frequency Musculoskeletal Musculoskeletal: Denies arthralgias, back pain, myalgias or neck pain Integumentary Denies abscess, Abrasions or rash Neurologic Neurologic: Reports other Details: Dizziness and syncope ; Denies headache(s) or weakness Psychiatric Psychiatric: Denies anxiety, depression or suicidal thoughts Endocrine Endocrinology: Denies polydipsia, polyphagia or polyuria Hematologic/Lymphatic Hematologic/Lymphatic: Denies easy bleeding, easy bruising or lymphadenopathy Allergic/Immunologic Allergic/Immunologic ED: Denies mouth swelling, tongue swelling or urticaria EXAM Physical Exam Const Vital Signs: 02/11/23 16:25 02/11/23 16:53 02/11/23 16:55 Temperature 97.5 F L Temperature Source Temporal Pulse Rate 70 68 Pulse Rate [Lying] Pulse Rate [Sitting (for 1 minute prior to obtaining)] Pulse Rate [Standing (for 1 minute prior to obtaining)] Respiratory Rate 16 20 H Respiratory Effort Short of Breath Respiratory Pattern Normal Blood Pressure 142/99 H 123/67 H Blood Pressure [Lying] Blood Pressure [Sitting (for 1 minute prior to obtaining)] Blood Pressure [Standing (for 1 minute prior to obtaining)] Blood Pressure Mean 113 85 Blood Pressure Mean [Lying] Blood Pressure Mean [Sitting (for 1 minute prior to obtaining)] Blood Pressure Mean [Standing (for 1 minute prior to obtaining)] Pulse Ox 99 98 Oxygen Delivery Method Room Air Room Air 02/11/23 19:30 02/11/23 19:50 Temperature Temperature Source Pulse Rate 62 Pulse Rate [Lying] 66 Pulse Rate [Sitting (for 1 minute prior to obtaining)] 71 Pulse Rate [Standing (for 1 minute prior to obtaining)] 74 Respiratory Rate 14 Respiratory Effort Respiratory Pattern Blood Pressure 152/79 H Blood Pressure [Lying] 157/90 H Blood Pressure [Sitting (for 1 minute prior to obtaining)] 163/102 H Blood Pressure [Standing (for 1 minute prior to obtaining)] 165/108 H Blood Pressure Mean 103 Blood Pressure Mean [Lying] 112 Blood Pressure Mean [Sitting (for 1 minute prior to obtaining)] 122 Blood Pressure Mean [Standing (for 1 minute prior to obtaining)] 127 Pulse Ox 96 Oxygen Delivery Method Room Air Positive well nourished and well developed General Appearance ED: well developed and NAD HEENT Reports TM's clear and moist mucous membranes normocephalic and atraumatic; Negative for trauma or tenderness Tympanic Membrane ED: Yes TM's clear Eyes PERRL and EOMs intact bilaterally General Eye ED: Negative for pale conjunctiva or scleral icterus Neck no lymphadenopathy, supple and no JVD General: Negative for tenderness Chest Wall inspection of chest normal and palpation of chest normal Chest: Negative for tenderness Resp normal respiratory effort and clear to auscultation bilaterally Effort and Inspection: Negative for respiratory distress or pain with movement Auscultation: Negative for rhonchi, wheezes or diminished lung sounds Cardio regular rate, regular rhythm, S1 normal heart sound, S2 normal heart sound and no murmurs Peripheral Pulses: pulses 2+ throughout GI normal to inspection, nondistended, normoactive bowel sounds, soft to palpation, non-tender, non-distended and no masses Back/Spine no CVA tenderness and no thoracic nor lumbar tenderness Extremity normal to inspection General Extremety ED: Negative for edema General Extremity: Negative for edema Neuro oriented x3, CN's II-XII intact bilaterally, no sensory deficits noted and gait normal Neuro Narrative: Finger-nose and heel freire testing within normal limits, negative Romberg, negative pronator drift. Hallpike maneuver performed cause some minimal dizziness when head turned to the right however no nystagmus appreciated. He also complained of dizziness with sitting upright. Again no nystagmus noted. Sensorium / Orientation: awake, alert, oriented to person, oriented to place and oriented to time Motor Exam: strength 5/5 throughout and strength abnormal Psych mental status grossly normal Skin no rashes or lesions noted and no wounds MDM MDM MDM Narrative Medical decision making narrative: Patient with dizziness that appears to be related to head movement and positional. He also states he has been passing out had 4 episodes yesterday but none today. In the differential would be vasovagal episode versus cardiac dysrhythmia. Versus acute intracranial process or hemorrhage. IV line established. CBC with differential obtained showed a white count 7.3 with hemoglobin 10.4 and platelet count of 219. Chemistries unremarkable. EKG obtained on arrival shows sinus rhythm with rate of 64 bpm with no acute ST segment changes. CT the scan of the brain without contrast showed no acute disease process. I did give patient Antivert 25 mg p.o. Orthostatic vital signs were negative. Patient urinalysis also unremarkable. At times patient still feeling complaint of dizziness with certain head positions but was able to stand and ambulate. I offered him admission for further treatment. I do suspect a benign positional vertigo as the etiology of his symptoms. I do not see any evidence of central cause. He also does have history of vertigo. 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 I will write him a prescription for Antivert and advised to return if persistent episodes or condition should worsen anyway. It is unclear if patient truly syncopized as he thinks he was only out for for 5 seconds at a time. Lab Data Attestation: I reviewed the patient's lab results. Labs: Laboratory Results - last 24 hr 02/11/23 02/11/23 17:20 18:30 WBC 7.3 RBC 4.05 L Hgb 10.4 L Hct 33.3 L MCV 82.2 MCH 25.7 L MCHC 31.2 L RDW Std Deviation 47.4 H RDW Coeff of Loretta 15.9 H Plt Count 219 MPV 10.0 Immature Gran % (Auto) 0.500 Neut % (Auto) 59.2 Lymph % (Auto) 29.5 [place] % (Auto) 8.4 Eos % (Auto) 1.6 Baso % (Auto) 0.8 Absolute Neuts (auto) 4.3 Absolute Lymphs (auto) 2.15 Nucleated RBC % 0 Sodium 139 Potassium 3.8 Chloride 109 H Carbon Dioxide 25.0 Anion Gap 5 BUN 19 H Creatinine 1.58 H Estim Creat Clear Calc 53.48 Est GFR (MDRD) Af Amer 56 L Est GFR (MDRD) Non-Af 47 L BUN/Creatinine Ratio 12.0 Glucose 137 H Calcium 9.0 Troponin I High Sens 10 Urine Color Yellow Urine Clarity Clear Urine pH 6.0 Ur Specific [place] 1.010 Urine Protein 15 H Urine Glucose (UA) Normal Urine Ketones Negative Urine Occult Blood 10 H Urine Nitrite Negative Urine Bilirubin Negative Urine Urobilinogen Normal Ur Leukocyte Esterase 25 H Urine RBC 0-5 SEEN Urine WBC 0-5 SEEN Ur Squamous Epith Cells 0-5 SEEN Urine Bacteria 0 SEEN Urine Mucus 0 SEEN Radiography Diagnostic Testing: Clinical Impression(s) from Imaging Studies Brain CT 02/11/23 17:06 IMPRESSION: No acute intracranial hemorrhage or mass effect. Electronically Signed: Aden Olsen MD ([place]) at 17:50 EST , EKG Initial EKG: Attestation: I personally reviewed and interpreted this EKG as follows: Comments: Sinus rhythm with a rate of 64 bpm with no acute ST segment changes Discharge Plan Triage Chief Complaint: Syncope ED Provider: Leanne Ferraro Dx/Rx/DC Orders Clinical Impression: Benign positional vertigo, Syncope Instructions: ED BPV Vertigo, ED Fainting, Uncertain Cause Prescriptions: New meclizine [Antivert] 25 mg tablet,chewable 25 mg PO TID PRN (Reason: dizziness) Qty: 30 0RF No Action Asmanex Twisthaler 110 mcg (30 doses) aerosol powdr breath activated 1 inh INHALATION DAILY PRN (Reason: Asthma) losartan 50 mg tablet 100 mg PO QHS Patient Comments: TAKE 2 TABLETS BY MOUTH EVERY DAY metformin 500 mg tablet extended release 24 hr 500 mg PO BID atorvastatin 40 mg tablet 40 mg PO QHS amlodipine 10 MG tablet 10 mg PO QHS Patient Comments: blood pressure clonidine HCl 0.1 mg tablet 0.1 mg PO BID Qty: 28 0RF duloxetine 30 mg capsule,delayed release(DR/EC) 30 mg PO DAILY Patient Comments: TAKE 1 CAPSULE BY MOUTH EVERY DAY ondansetron HCl 4 mg tablet 4 mg PO Q8H PRN (Reason: nausea and vomiting) Patient Comments: TAKE 1 TABLET BY MOUTH NEEDED THREE TIMES DAILY FOR 30 DAYS hydralazine 100 mg tablet See Rx Instructions .ROUTE .COMPLEX Qty: 90 11RF Dose Instruction: TAKE 1 TABLET BY MOUTH THREE TIMES A DAY Rx Instructions: TAKE 1 TABLET BY MOUTH THREE TIMES A DAY Eliquis 5 mg tablet 5 mg PO BID Primary Care Provider: Beulah Dexter Referrals: Beulah Dexter NP-C [Primary Care Provider] - 3-5 Days Disposition Disposition: Home, Self Care
[2023-02-11] MEDS: 0.9% Normal Saline (1000mL) 1,000 ML 150 ML IV (17:20)
[2023-02-11] MEDS: Ondansetron 4 MG/2 ML Vial IV (17:20)
[2023-02-11] MEDS: Meclizine HCl 25 MG Tablet PO (17:20)
[2023-02-11 17:33] LABS: Absolute Lymphocyte Count 2.15 X10^3/uL (0.83-4.51); Absolute Neutrophil Count 4.3 X10^3/uL (2.0-7.7); Basophil# 0.06 X10^3/uL; Basophil% 0.8 % (0-1); Eosinophil# 0.12 X10^3/uL; Eosinophils% 1.6 % (0-5); Hematocrit 33.3 % (40-54); Hemoglobin 10.4 g/dL (13.0-16.5); Lymphocyte # 2.15 X10^3/ul (0.83-4.51); Lymphocyte % 29.5 % (19-41); Mean Corp Hgb Conc 31.2 g/dL (32-36); Mean Corpuscular Hgb 25.7 pg (27.0-32.0); Mean Corpuscular Volume 82.2 fL (80-94); Monocyte# 0.61 X10^3/uL; Monocyte% 8.4 % (0-10); NRBC Flagged by Analyzer 0 % (0-5); Neutrophil % 59.2 % (47-70); Platelet Count 219 K/mm3 (150-450); RBC Distribution Width CV 15.9 % (11.6-14.6); RBC Distribution Width SD 47.4 fl (35.1-43.9); Red Blood Count 4.05 M/mm3 (4.6-6.2); White Blood Count 7.3 K/mm3 (4.4-11.0)
[2023-02-11 17:50] LABS: Anion Gap 5 (5-15); BUN 19 mg/dL (7-18); Chloride 109 mmol/L (98-107); Creatinine, Serum 1.58 mg/dL (0.70-1.30); EST Glomerular Filtration Rate 47 mL/min (>60); Est Glom Filt Rate - Afr Amer 56 mL/min (>60); Estimated Creatinine Clearance 53.48 ml/min; Glucose 137 mg/dL (74-106); Potassium 3.8 mmol/L (3.5-5.1); Sodium Level 139 mmol/L (136-145); Troponin-I HS 10 pg/mL (3.0-78.0)
[2023-02-11 18:56] LABS: Bacteria 0 SEEN /hpf (None Seen); Mucous, Urine 0 SEEN /hpf (<or=2+)
[2023-02-11 18:58] LABS: Color, Urine Yellow (Yellow); Glucose, Dipstick Normal (Normal); Ketone-Dipstick Negative (Negative); Leukocyte Esterase-Dipstick 25 /ul (Negative); Nitrite-Dipstick Negative (Negative); Occult Blood-Urine 10 /ul (Negative); Protein-Dipstick 15 mg/dl (Negative); Urine Bilirubin Dipstick Negative (Negative); Urine Clarity Clear (Clear); Urine Urobilinogen Normal (Normal)
[2023-02-11 19:05] LABS: Red Blood Cells-Urine 0-5 SEEN /hpf (0-5); Squamous Epithelial Cells - UA 0-5 SEEN /hpf (0-5); White Blood Cells 0-5 SEEN /hpf (0-5)
[2023-02-11 19:30] VITALS: BP 152/79; PULSE 62; RESP 14; O2SAT 96
[2023-02-11 19:50] VITALS: BP 157/90; BP 163/102; BP 165/108; PULSE 66; PULSE 71; PULSE 74
[2023-02-11 21:18] VITALS: BP 163/89; O2SAT 97
[2023-02-11 21:19] VITALS: BP 163/89; O2SAT 97
== END 2023-02-11 21:34 | disposition home or self-care (01) ==
PROVIDERS: Emergency Provider Emergency Medicine; PCP Nurse Practitioner Family; Visit Provider Emergency Medicine
DX: R55 Syncope and collapse (principal); E11.42 Type 2 diabetes mellitus with diabetic polyneuropathy; I48.91 Unspecified atrial fibrillation; H81.10 Benign paroxysmal vertigo, unspecified ear; I10 Essential (primary) hypertension; Z86.73 Personal history of transient ischemic attack (TIA), and cerebral infarction without residual deficits; Z85.9 Personal history of malignant neoplasm, unspecified; Z79.899 Other long term (current) drug therapy; J45.909 Unspecified asthma, uncomplicated; Z79.51 Long term (current) use of inhaled steroids; Z79.84 Long term (current) use of oral hypoglycemic drugs; Z79.01 Long term (current) use of anticoagulants; Z90.49 Acquired absence of other specified parts of digestive tract
CPT/HCPCS: 70450; 80048; 81001; 84484; 85025; 93005; 96361; 96374; 99284; J7030; A4216; J2405

== ENCOUNTER → 2023-05-15 | Outpatient (CLI) | payer MEDICARE, OTHER, SELFPAY ==
[2023-05-15 15:09] LABS: BNP,B-Type NATRIURETIC PEPTIDE 27.5 pg/mL (0-100)
== END | disposition home or self-care (01) ==
LOC: LAB 13:57
PROVIDERS: PCP Nurse Practitioner Family; Referring Provider Nurse Practitioner Family; Visit Provider Nurse Practitioner Family
DX: R06.02 Shortness of breath (principal); M79.89 Other specified soft tissue disorders
CPT/HCPCS: 36415; 83880

== ENCOUNTER 2023-06-30 13:30 | Outpatient (RCR) | payer MEDICARE, OTHER, SELFPAY ==
--- NOTE | 2023-05-25 10:18 | HP.PTEVAL_ITS ---
Patient's Visit Information Visit Information Visit Information: JONO PENA is a 68 year old M referred to Physical Therapy by REYNA Culver with a diagnosis of CVA. Date of Evaluation: 05/22/23 Physical Therapist: Matt Mcgill DPT Visit Plan Frequency: 1x/Week Duration: 2 Months Plan: AQUATIC THERAPY -walking/endurance act -LE strengthening -balance (DL and SL) Pt overall here for deconditioning, wants to improve physical fitness and stamina with daily tasks with less SOB. Pt going through current adjustment of blood pressure medications, has FREQUENT lightheadedness but seems to understand limitations and when to take breaks. Tests in IE and appropriate for aquatic therapy, just be aware of orthostatic symptoms. Subjective Subjective: Pt presents to PT with deconditioning that he's noticed has worsened over the last year. 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 Pt reports general tiredness, fatigue,brain fog, weakness, and lightheadedness with position changes (seems more orthostatic related). 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 Pt had episode of vertigo last year, Ny maneuver helped, denies any HIGH. Had a-fib a few years ago, did cardioversion and has been in sinus rhythm ever since. Is currently being weaned off of blood pressure med, has aquatic habitat biologist at [facility]. Pt has a flight of stairs to get to laundry in the basement, notices fatigue and sometimes uses laundry basket to help steady himself while ascending steps. Has difficulty walking around the grocery store, very fatigued afterwards. Only uses a cane when he's feeling weak or unsteady. Has had LOB in past year but no falls. Pt wants to improve SOB, memory, and strength. Pt had aquatic therapy for back a few years ago and felt it helped. Objective Objective: GAIT: pt lightheaded afterwards, LLE more affected from CVA, hard landing on LLE in stance phase nicole toe out, increased lateral trunk sway, absent arm swing, stiffness in lumbar ROM ROM: tightness in hamstrings leading to PPT, hip, knee, and ankle WNL MMT (tested in seated d/t orthostatic concerns): R - hip flex 4-/5, hip ABD 4/5, knee ext 4+/5, knee flex 4-/5 L - hip flex 4-/5, hip ABD 4/5, knee ext 3+/5, knee flex 4-/5 *Screened UE, WNL, some pain in resisted L shoulder d/t CVA involvement 5XSTS: 3 reps in 13.33 sec, stopped test d/t patient lightheadedness STANDING: able to do so for 3 min, static standing and some marching, had lightheadedness throughout entire time but did not get worse or better NEURO: feet together for 20s with no sway, modified tandem nicole 20s no sway, unable to achieve SLS nicole EDEMA: pitting, 2+ RLE, 3+ LLE educated pt to elevate feet throughout the day Pt overall has greatest difficulty with tolerance to prolonged activity (climbing stairs, walking, standing doing dishes), noting that the weakness is more concerning to him than the lightheadedness he has been having. Pt is appropriate for aquatic therapy as long as BP orthostatic sxs are monitored throughout session. Balance/Special Test Scores Lower Extremity Functional Score: 31 Goals Goal 1:: Pt will be able to complete 6MWT with no breaks or LOB Goal Time Frame: 6-8 Weeks Goal 2:: Pt will complete 5xSTS in <12s and minimal reports of lightheadedness Goal Time Frame: 6-8 Weeks Goal 3:: Pt will be able to perform SLS for >10s nicole with min LOB Goal Time Frame: 6-8 Weeks Goal 4:: Pt will be able to walk around grocery store with decreased reports of fatigue Goal Time Frame: 6-8 Weeks Rehabilitation Potential Physical Therapy Diagnosis: Pt presents to PT with general deconditioning s/p CVA and series of hospitalizations for kidney and blood clot issues. Pt would benefit from skilled PT services, specifically aquatic therapy, to address functional stamina, LE strength, and balance to improve tolerance to ADLs. Rehabilitation Potential: Fair Anticipated Interventions Patient/Client Instruction: Educate patient on: Condition, Plan of Care and Benefits of Fitness Program For the Purpose of:: To improve ability to perform ADL's, To increase tolerance to activity/condition/position, To improve performance and independence with ADL's, To improve ability of physical actions for home/community/work/leisure, To improve gait and locomotor functions, To improve endurance, To improve balance, To improve safety with gait, To assume or resume ADL's, To improve safety, To improve health and function, To foster healthy habits, To improve self management, To prevent re-injury, To improve ability to perform tasks related to life management and To improve tolerance to ADL's Therapeutic Exercise to Include: Strength training, Endurance training, Balance training, Body mechanics, Postural training, Flexibilty training, Gait and locomotor training and In an aquatic setting For the Purpose of:: To improve nutrient delivery to tissue, To improve muscle performance and motor function, To improve ability to perform ADL's, To increase tolerance to activity/condition/position, To improve performance and independence with ADL's, To improve ability of physical actions for home/community/work/leisure, To improve gait and locomotor functions, To improve health of tissue, To improve endurance, To improve balance, To assume or resume ADL's, To improve safety, To improve health and function, To improve self management, To improve ability to perform tasks related to life management and To improve tolerance to ADL's Text: Thank you for the opportunity to evaluate your patient. For Medicare and Medicare HMO plans, please review the plan of care and approve it. It will need to be FAXED BACK to us at [phone] for Medicare purposes. For Medicare only, by signing this I certify the plan of care. Please let me know if there are questions or concerns regarding this plan of care. Physician Signature: Date:
--- NOTE | 2023-06-30 14:24 | HP.PTREVAL_ITS ---
Re-Evaluation Intro: Beulah Dexter, REBA-C, It has been my pleasure to treat JONO PENA over the last 7 visits for CVA. Please see the progress note below for an update on the physical therapy plan of care! Subjective Subjective: Pt reports feeling short of breath today, but denies any chest pain. Pt would like to continue sessions in pool. Has some aching and L sided arm weakness that he would like to address. Objective Objective/Function: VITALS: O2 95%, HR 96 bpm, BP 132/68 MMT: global hip and LE strength 4+/5 L arm - flex 4-/5, ABD 4-/5, IR 3+/5, ER 3+/5 GAIT: does not reach TKE nicole, decreased stance time on LLE and uses SPC, heavy trunk lean to R on stronger side, forward flexed trunk 5xSTS: 23.22 using BUE, SOB which resolved somewhat a few minutes after EDEMA: nicole pitting edema 2+ Pt fatigued today and having increased SOB, did not perform 6MWT d/t pt presentation and sxs reported. Educated pt to contact his doctor if SOB continues. Demo's increased strength, but still limited by poor endurance. Pt appropriate to continue aquatic therapy to work on stamina and LE strength but need to add arm ex since LUE was most affected by TIA. Plan Plan Plan: AQUATIC THERAPY -walking/endurance act -LE strengthening ADD ARM EXERCISES (L arm weaker) -balance (DL and SL) Pt overall here for deconditioning, wants to improve physical fitness and stamina with daily tasks with less SOB. Pt going through current adjustment of blood pressure medications, has FREQUENT lightheadedness but seems to understand limitations and when to take breaks. Tests in IE and appropriate for aquatic therapy, just be aware of orthostatic symptoms. Balance/Gait/Functional tests Balance/Special Test Scores Lower Extremity Functional Score: 31 Goals Goals Goal 1:: Pt will be able to complete 6MWT with no breaks or LOB Goal Time Frame: 6-8 Weeks Goal Progress: Progressing Goal 2:: Pt will complete 5xSTS in <12s and minimal reports of lightheadedness Goal Time Frame: 6-8 Weeks Goal Progress: Progressing Goal 3:: Pt will be able to perform SLS for >10s nicole with min LOB Goal Time Frame: 6-8 Weeks Goal Progress: Progressing Goal 4:: Pt will be able to walk around grocery store with decreased reports of fatigue Goal Time Frame: 6-8 Weeks Goal Progress: Progressing Anticipated Interventions Anticipated Interventions Patient/Client Instruction: Educate patient on: Condition, Plan of Care and Benefits of Fitness Program For the Purpose of:: To improve ability to perform ADL's, To increase tolerance to activity/condition/position, To improve performance and independence with ADL's, To improve ability of physical actions for home/community/work/leisure, To improve gait and locomotor functions, To improve endurance, To improve balance, To improve safety with gait, To assume or resume ADL's, To improve safety, To improve health and function, To foster healthy habits, To improve self management, To prevent re-injury, To improve ability to perform tasks related to life management and To improve tolerance to ADL's Therapeutic Exercise to Include: Strength training, Endurance training, Balance training, Body mechanics, Postural training, Flexibilty training, Gait and locomotor training and In an aquatic setting For the Purpose of:: To improve nutrient delivery to tissue, To improve muscle performance and motor function, To improve ability to perform ADL's, To increase tolerance to activity/condition/position, To improve performance and independence with ADL's, To improve ability of physical actions for home/community/work/leisure, To improve gait and locomotor functions, To improve health of tissue, To improve endurance, To improve balance, To assume or resume ADL's, To improve safety, To improve health and function, To improve self manag ement, To improve ability to perform tasks related to life management and To improve tolerance to ADL's Re-Evaluation Ending Re-evaluation ending: Please do not hesitate to contact me at [phone] by phone or if you have questions or concerns regarding this new plan of care! Sincerely, Matt Mcgill DPT
== END 2023-06-30 19:00 | disposition home or self-care (01) ==
LOC: PT 13:30
PROVIDERS: PCP Nurse Practitioner Family; Referring Provider Nurse Practitioner Family; Visit Provider Nurse Practitioner Family
DX: Z86.73 Personal history of transient ischemic attack (TIA), and cerebral infarction without residual deficits (principal)
CPT/HCPCS: 97113; 97161; 97164

== ENCOUNTER → 2023-07-09 | Outpatient (CLI) | payer MEDICARE, OTHER, SELFPAY ==
--- NOTE | 2023-07-09 17:22 | STRESSREP ---
Stress Test Report Pharmacologic myocardial perfusion stress test. 68-year-old man with a history of shortness of breath Resting EKG demonstrates sinus rhythm with a rate of 62 bpm. Resting blood pressure is 146/80 mmHg. 0.4 mg of regadenoson was infused per usual protocol followed by rapid intravenous saline flush injection. Continuous EKG monitoring was performed. The maximum heart rate was 113 bpm which was 74% of max impacted heart rate the maximum workload was 1 metabolic equivalent. At rest there were no ST or T wave changes noted to suggest ischemia and at peak infusion nonspecific ST changes were noted which did not meet the criteria for ischemia. No clinical angina is noted. The final blood pressure was 134/70 mmHg. Myocardial perfusion protocol. 15 mCi of technetium 99m sestamibi was injected at rest. 0.4 mg of regadenoson was infused per usual protocol. At peak infusion 47.1 mCi of technetium 99m sestamibi was injected stress images were obtained stress and rest images were reconstructed and compared in the short axis vertical long and horizontal long axis. Gated images were also obtained. Perfusion SPECT analysis: Review of the stress images demonstrate normal uptake of tracer noted in all areas of the myocardium. The resting images similar demonstrated normal uptake of tracer noted in all areas of the myocardium. No areas of reversibility are noted to suggest ischemia and no previous infarct is noted. Gated SPECT analysis: The gated ejection fraction is 58%. Conclusion: Normal pharmacologic myocardial perfusion stress test. Preserved ejection fraction.
== END | disposition home or self-care (01) ==
LOC: CVS 06:20
PROVIDERS: PCP Nurse Practitioner Family; Referring Provider Internal Medicine Cardiovascular Disease; Visit Provider Internal Medicine Cardiovascular Disease
DX: R06.02 Shortness of breath (principal); I48.0 Paroxysmal atrial fibrillation
CPT/HCPCS: 78452; 93017; A9500; A4216; J2785

== ENCOUNTER → 2023-09-03 | Outpatient (CLI) | payer MEDICARE, OTHER, SELFPAY ==
[2023-09-03 17:14] LABS: Absolute Lymphocyte Count 2.28 X10^3/uL (0.83-4.51); Absolute Neutrophil Count 6.3 X10^3/uL (2.0-7.7); Basophil# 0.06 X10^3/uL; Basophil% 0.6 % (0-1); Eosinophil# 0.16 X10^3/uL; Eosinophils% 1.7 % (0-5); Hematocrit 40.1 % (40-54); Hemoglobin 12.7 g/dL (13.0-16.5); Lymphocyte # 2.28 X10^3/ul (0.83-4.51); Mean Corp Hgb Conc 31.7 g/dL (32-36); Mean Corpuscular Hgb 26.4 pg (27.0-32.0); Mean Corpuscular Volume 83.4 fL (80-94); Mean Platelet Vol. 10.6 fl (6.2-12.0); Monocyte# 0.67 X10^3/uL; Monocyte% 7.1 % (0-10); NRBC Flagged by Analyzer 0 % (0-5); Neutrophil # 6.28 X10^3/uL (2.7-7.7); Neutrophil % 66.2 % (47-70); Platelet Count 197 K/mm3 (150-450); RBC Distribution Width CV 14.8 % (11.6-14.6); RBC Distribution Width SD 45.2 fl (35.1-43.9); Red Blood Count 4.81 M/mm3 (4.6-6.2); White Blood Count 9.5 K/mm3 (4.4-11.0)
[2023-09-03 17:39] LABS: BNP,B-Type NATRIURETIC PEPTIDE 66.3 pg/mL (0-100)
[2023-09-03 17:48] LABS: Anion Gap 6 (5-15); BUN 18 mg/dL (7-18); BUN/Creat Ratio 12.7 RATIO (10-20); Calcium,Total 9.3 mg/dL (8.5-10.1); Chloride 105 mmol/L (98-107); Creatinine, Serum 1.42 mg/dL (0.70-1.30); EST Glomerular Filtration Rate 53 mL/min (>60); Est Glom Filt Rate - Afr Amer 64 mL/min (>60); Glucose 150 mg/dL (74-106); Magnesium 1.8 mg/dL (1.6-2.6); Potassium 3.9 mmol/L (3.5-5.1); Sodium Level 136 mmol/L (136-145); Thyroid Stim Hormone (TSH) 2.32 uIU/mL (0.358-3.74)
== END | disposition home or self-care (01) ==
LOC: LAB 15:37
PROVIDERS: PCP Nurse Practitioner Family; Referring Provider Nurse Practitioner Family; Visit Provider Nurse Practitioner Family
DX: R06.02 Shortness of breath (principal); I48.0 Paroxysmal atrial fibrillation; M79.89 Other specified soft tissue disorders; R53.83 Other fatigue; R00.1 Bradycardia, unspecified; Z79.01 Long term (current) use of anticoagulants
CPT/HCPCS: 36415; 80048; 83735; 83880; 84443; 85025

== ENCOUNTER → 2023-09-09 | Outpatient (CLI) | payer MEDICARE, OTHER, SELFPAY | END | disposition home or self-care (01) | PROVIDERS: PCP Nurse Practitioner Family; Referring Provider Nurse Practitioner Family; Visit Provider Nurse Practitioner Family | DX: R06.02 Shortness of breath (principal); R53.83 Other fatigue; R53.1 Weakness | CPT/HCPCS: 93225; 93226 ==

== ENCOUNTER → 2023-09-11 | Outpatient (CLI) | payer MEDICARE, OTHER, SELFPAY ==
[2023-09-11 11:08] LABS: AST(SGOT) 25 U/L (15-37); Alanine Aminotransfer ALT/SGPT 30 U/L (16-61); Albumin, Serum 3.6 g/dL (3.2-5.0); Alkaline Phosphatase 49 U/L (45-117); Bilirubin, Direct 0.17 mg/dL (0.00-0.30); Cholesterol 148 mg/dL (200); Globulin 4.1 g/dL (2.2-4.2); High Density Lipoprotein 39 mg/dL; Protein, Total 7.7 g/dL (6.4-8.2); Triglycerides 184 mg/dL; Very Low Density Lipoprotein 37 mg/dL (5-40)
[2023-09-11 11:34] LABS: CPK Total, Creatine Kinase 165 U/L (39-308)
== END | disposition home or self-care (01) ==
LOC: LAB 09:53
PROVIDERS: Internal Medicine Cardiovascular Disease; PCP Nurse Practitioner Family; Referring Provider Nurse Practitioner Family; Visit Provider Nurse Practitioner Family
DX: E78.00 Pure hypercholesterolemia, unspecified (principal); I48.0 Paroxysmal atrial fibrillation; I63.9 Cerebral infarction, unspecified; R00.1 Bradycardia, unspecified; R06.00 Dyspnea, unspecified; I10 Essential (primary) hypertension; R53.83 Other fatigue
CPT/HCPCS: 36415; 80061; 80076; 82550; 86140

== ENCOUNTER → 2023-09-22 | Outpatient (CLI) | payer MEDICARE, OTHER, SELFPAY ==
[2023-09-22 15:02] LABS: Erythrocyte Sedimentation Rate 44 mm/hr (0-20)
[2023-09-22 15:04] LABS: Absolute Neutrophil Count 6.3 X10^3/uL (2.0-7.7); Basophil# 0.06 X10^3/uL; Basophil% 0.6 % (0-1); Eosinophil# 0.19 X10^3/uL; Hematocrit 41.2 % (40-54); Hemoglobin 13.2 g/dL (13.0-16.5); Lymphocyte % 25.7 % (19-41); Mean Corpuscular Hgb 26.8 pg (27.0-32.0); Mean Corpuscular Volume 83.6 fL (80-94); Mean Platelet Vol. 10.2 fl (6.2-12.0); Monocyte# 0.68 X10^3/uL; NRBC Flagged by Analyzer 0 % (0-5); Neutrophil # 6.26 X10^3/uL (2.7-7.7); Neutrophil % 64.2 % (47-70); Platelet Count 204 K/mm3 (150-450); RBC Distribution Width CV 14.6 % (11.6-14.6); RBC Distribution Width SD 44.3 fl (35.1-43.9); Red Blood Count 4.93 M/mm3 (4.6-6.2); White Blood Count 9.7 K/mm3 (4.4-11.0)
[2023-09-22 15:33] LABS: ALB/GLOB Ratio 0.9 RATIO (0.9-2.4); AST(SGOT) 26 U/L (15-37); Alanine Aminotransfer ALT/SGPT 32 U/L (16-61); Albumin, Serum 3.4 g/dL (3.2-5.0); Alkaline Phosphatase 51 U/L (45-117); Anion Gap 9 (5-15); BUN 22 mg/dL (7-18); BUN/Creat Ratio 17.2 RATIO (10-20); Calcium,Total 9.5 mg/dL (8.5-10.1); Chloride 106 mmol/L (98-107); Creatinine, Serum 1.28 mg/dL (0.70-1.30); EST Glomerular Filtration Rate 59 mL/min (>60); Est Glom Filt Rate - Afr Amer 72 mL/min (>60); Globulin 3.9 g/dL (2.2-4.2); Glucose 183 mg/dL (74-106); Protein, Total 7.3 g/dL (6.4-8.2); Sodium Level 139 mmol/L (136-145)
[2023-09-24 16:08] LABS: CCP IgG Antibodies 9 units (0-19)
[2023-09-24 16:30] LABS: Hepatitis B Surface Antibody Non-Reactive; Hepatitis B Surface Antigen Non-Reactive (Nonreactive); Hepatitis C Antibody Non-Reactive (Nonreactive)
[2023-09-25 14:08] LABS: ANTINUCLEAR ANTIBODIES DIRECT Negative (Negative)
== END | disposition home or self-care (01) ==
LOC: LAB 14:10
PROVIDERS: PCP Nurse Practitioner Family; Referring Provider Internal Medicine Rheumatology; Visit Provider Internal Medicine Rheumatology
DX: M06.4 Inflammatory polyarthropathy (principal); M17.0 Bilateral primary osteoarthritis of knee
CPT/HCPCS: 36415; 80053; 85025; 85652; 86038; 86140; 86200; 86431; 86706; 86803; 87340

== ENCOUNTER → 2023-10-05 | Outpatient (CLI) | payer MEDICARE, OTHER, SELFPAY ==
--- NOTE | 2023-10-05 13:59 | ECHOCS_ITS ---
Reason For Study: Platypnea, SOB Procedure This was a 2D Doppler, Color Flow transthoracic echocardiogram. Technically difficult due to patient body habitus. Unable to perform strain due to needed use of Definity and poor image quality. Contrast injection was performed. Exam performed in department. Left Ventricle Normal LV size. The estimated ejection fraction is 60 %. No evidence for diastolic dysfunction. No regional wall motion abnormalities noted. Right Ventricle Normal RV size. Normal systolic function. Atria The left and right atria are normal. No doppler evidence for ASD. Bubble contrast study negative for right to left interatrial shunt. Mitral Valve There is no mitral valve stenosis. No mitral valve insufficiency. Tricuspid Valve There is no tricuspid stenosis. Unable to estimate RV systolic pressure due to inadequate jet, pulmonary artery pressure probably normal. Aortic Valve Trisinus/trileaflet aortic valve. There is no aortic stenosis. No aortic valve insufficiency. Pulmonic Valve There is no pulmonic valvular stenosis. No pulmonic valve insufficiency. Great Vessels Normal aortic root. Pericardium/Pleural No pericardial effusion. Medication 22 gauge I.V. with prn adaptor inserted into right arm. Diluted definity 4.5ml given slow IV push to enhance endocardial definition. Performed a rapid injection of agitated mix of 9 cc saline and 1cc air to assess for atrial septal defect. MMode/2D Measurements & Calculations LVIDd: 5.4 cm IVSd: 1.7 cm Ao root diam: 4.3 cm LVIDs: 3.8 cm LVPWd: 1.7 cm LA dimension: 5.5 cm FS: 28.2 % LAV(MOD-bp): 152.0 ml LVAd ap4: 47.1 cm2 SV(MOD-sp4): 111.8 ml LAV(MOD-bp) Indexed: 51.7 ml/m2 LVLd ap4: 10.1 cm LAV(MOD-sp2): 136.5 ml EDV(MOD-sp4): 179.6 ml LAV(MOD-sp4): 157.0 ml EDV(sp4-el): 186.2 ml LVAs ap4: 25.8 cm2 LVLs ap4: 8.2 cm ESV(MOD-sp4): 67.8 ml ESV(sp4-el): 69.0 ml EF(MOD-sp4): 62.3 % EF(sp4-el): 63.0 % SV(sp4-el): 117.3 ml LA A4 area: 38.0 cm2 RA A4 area: 27.0 cm2 TAPSE: 2.2 cm Time Measurements MV dec time: 0.26 sec Doppler Measurements & Calculations MV E max cornelius: 70.9 cm/sec Lat Peak E' Cornelius: 7.7 cm/sec Med Peak E' Cornelius: 6.9 cm/sec MV A max cornelius: 91.6 cm/sec E/E' lat: 9.2 E/E' med: 10.2 MV E/A: 0.77 MV V2 max: 104.1 cm/sec MV P1/2t max cornelius: 78.6 cm/sec Ao V2 max: 138.1 cm/sec MV max P.3 mmHg MV P1/2t: 88.9 msec Ao max P.8 mmHg MV V2 mean: 57.8 cm/sec Ao V2 mean: 95.5 cm/sec MV mean P.6 mmHg MV dec slope: 258.9 cm/sec2 Ao mean P.2 mmHg MV V2 VTI: 34.3 cm MVA(P1/2t): 2.5 cm2 Ao V2 VTI: 33.5 cm LV V1 max: 106.9 cm/sec PA V2 max: 126.8 cm/sec LV V1 max P.6 mmHg PA max PG (full): 1.8 mmHg PA V2 mean: 88.9 cm/sec PA mean PG (full): 0.84 mmHg ECHO/Echo Complete W/ Contrast Interpretation Summary The estimated ejection fraction is 60 %. No evidence for diastolic dysfunction. Ordering Physician: Johan Grayson V Referring Physician: Johan Grayson V Performed By: Scar Oliva RCS
== END | disposition home or self-care (01) ==
LOC: CVS 13:59
PROVIDERS: PCP Nurse Practitioner Family; Referring Provider Internal Medicine Pulmonary Disease; Visit Provider Internal Medicine Pulmonary Disease
DX: R06.89 Other abnormalities of breathing (principal); R06.02 Shortness of breath
CPT/HCPCS: 93306; Q9957; A4216; C8929

== ENCOUNTER 2023-10-30 22:13 | Emergency (ER) | payer MEDICARE, OTHER, SELFPAY ==
[2023-10-30 22:14] VITALS: BP 168/74; PULSE 71; RESP 21; TEMP 36; O2SAT 97; BMI 50.3
[2023-10-30 22:18] VITALS: BP 168/74; PULSE 75; RESP 20; TEMP 36; O2SAT 98
--- NOTE | 2023-10-30 22:35 | EKG12_ITS ---
Test Reason : SOB Blood Pressure : / mmHG Vent. Rate : 073 BPM Atrial Rate : 073 BPM P-R Int : 216 ms QRS Dur : 112 ms QT Int : 402 ms P-R-T Axes : 087 052 058 degrees QTc Int : 442 ms Sinus rhythm with 1st degree A-V block with Premature atrial complexes Otherwise normal ECG Confirmed by ARABELLA WEINBERG, ASHA ([id number]), pictures editor AMARILYS HUANG ([id number]) on 11/02/2023 9:35:01 AM Referred By: DARLENE Confirmed By:KELSEY BELL MD
--- NOTE | 2023-10-30 22:46 | RAD_ITS ---
INDICATION: DYSPNEA EXAMINATION/TECHNIQUE: X-RAY - XR Chest 2 Views COMPARISON: Chest radiograph 01/08/2023. Findings: Frontal and lateral views of the chest. LUNG PARENCHYMA: No acute focal airspace disease or mass lesion. PLEURA: No pleural effusion. No pneumothorax. HEART/GREAT VESSELS: Cardiomediastinal silhouette is unremarkable. BONES: Osseous structures are unremarkable for age. RAD/Chest PA and Lateral IMPRESSION: Chest with no acute disease. Electronically Signed: Talat Renee MD at 23:31 EDT ,
--- NOTE | 2023-10-30 22:46 | EX.ED.DYSGE1 ---
HPI History of Present Illness Chief Complaint: Shortness of Breath Informant: patient Narrative Narrative: Patient is a 68-year-old male with past medical history of paroxysmal atrial fibrillation as well as hypertension hyperlipidemia [id number] diabetes he is currently taking Eliquis. He states that throughout the day today he felt palpitations but this evening they seem to worsen and once they increased in severity he also noticed shortness of breath. He denies any history of COPD or emphysema or congestive heart failure. He states he is taking his Eliquis as directed. He reports that there was no chest pain or diaphoresis or nausea or vomiting and he denies any known sick contacts or recent sick symptoms such as fevers chills nasal congestion sore throat or cough. He states he is feeling better wants arrival to the ER but as he was having worsening palpitations and shortness of breath presents for evaluation. [facility] Medical History Hemorrhage of right kidney Hypertension A-fib Thoracic aortic aneurysm without rupture CVA (cerebral vascular accident) (~06/19/22) PAF (paroxysmal atrial fibrillation) Cancer History of steroid therapy Arthritis Bladder disease Low iron Fatty liver Restless legs Back pain Lightheaded Dietary restriction History of ulceration Non-smoker BiPAP (biphasic positive airway pressure) dependence Shortness of breath on exertion Leg cramps History of pain when walking History of edema History of echocardiogram History of stress test Hypertension Cardiology follow-up encounter Persistent atrial fibrillation Asthma Type 2 diabetes mellitus Peripheral neuropathy Gout Inguinal hernia Spinal stenosis LDL (low density lipoprotein receptor disorder) GERD (gastroesophageal reflux disease) Morbid obesity Chronic back pain Essential hypertension Home Medications ?Medication ?Instructions ?Recorded ?Last Taken ?Type amlodipine 10 mg tablet 10 mg PO QHS 06/19/15 06/18/15 History mometasone 110 mcg/actuation(30 1 inh inhalation DAILY PRN Asthma 06/16/18 Unknown History doses) breath activated powder inhaler (Asmanex Twisthaler) losartan 50 mg tablet 100 mg PO QHS 09/11/21 Unknown History metformin 500 mg tablet,extended 500 mg PO BID 10/23/21 Unknown History release 24 hr hydralazine 100 mg tablet See Rx Instructions .Route 08/11/22 Unknown Rx .COMPLEX #90 tabs duloxetine 30 mg capsule,delayed 30 mg PO DAILY 02/11/23 Unknown History release meclizine 25 mg chewable tablet 25 mg PO TID PRN dizziness #30 tabs 02/11/23 Unknown Rx (Antivert) ondansetron HCl 4 mg tablet 4 mg PO Q8H PRN nausea and vomiting 02/11/23 Unknown History apixaban 5 mg tablet (Eliquis) 5 mg PO BID #60 tabs 03/09/23 Unknown Rx isosorbide mononitrate 60 mg 60 mg PO DAILY #30 tabs 09/18/23 Unknown Rx tablet,extended release 24 hr hydroxychloroquine 200 mg tablet 200 mg PO BID 10/22/23 Unknown History spironolactone 25 mg tablet 25 mg PO DAILY #30 tabs 10/29/23 Unknown Rx Allergy/AdvReac Type Severity Reaction Status Date / Time doxazosin (From Cardura) Allergy Intermediate tired Verified 10/30/23 22:14 levofloxacin (From Levaquin) Allergy Intermediate tendonitis Verified 10/30/23 22:14 hydrochlorothiazide AdvReac Severe Severe Verified 10/30/23 22:14 myalgias Family History Mother Heart disease Diabetes Hypertension Father Hypertension Other Bradycardia Surgical History Hx of hammer toe correction History of carpal tunnel surgery of right wrist History of carpal tunnel surgery of left wrist History of cardioversion (10/30/21) History of appendectomy History of arthroscopic knee surgery Social History household members: spouse Smoking Status: Never smoker alcohol intake: never substance use type: does not use caffeine: Yes Type: carbonated beverages, coffee and tea ROS ROS ED Constitutional Constitutional ED: Denies chills or fever(s) Eyes Eyes: Denies blurry vision or change in vision ENT ENT ED: Denies rhinorrhea or sore throat Cardiovascular Cardiovascular: Reports palpitations; Denies chest pain or racing heartbeat Respiratory/Chest Respiratory/Chest: Reports dyspnea; Denies cough Gastrointestinal Gastrointestinal: Denies abdominal pain, diarrhea, nausea or vomiting Genitourinary Genitourinary ED: Denies dysuria Musculoskeletal Musculoskeletal: Denies myalgias Integumentary Denies rash Neurologic Neurologic: Denies headache(s) Hematologic/Lymphatic Hematologic/Lymphatic: Reports easy bleeding and easy bruising Allergic/Immunologic Allergic/Immunologic ED: Denies mouth swelling or tongue swelling EXAM Physical Exam Const Vital Signs: 10/30/23 22:14 10/30/23 22:18 10/30/23 22:19 Temperature 96.8 F L 96.8 F L Temperature Source Temporal Temporal Pulse Rate 71 75 Respiratory Rate 21 H 20 H Respiratory Effort Normal Respiratory Pattern Normal Blood Pressure 168/74 H 168/74 H Blood Pressure Mean 105 105 Pulse Ox 97 98 Oxygen Delivery Method Room Air Room Air 10/30/23 22:21 10/30/23 23:00 10/31/23 00:00 Temperature 97.6 F L 97.3 F L Temperature Source Temporal Temporal Pulse Rate 70 62 Respiratory Rate 20 H 20 H Respiratory Effort Normal Respiratory Pattern Normal Blood Pressure 167/70 H 147/66 H Blood Pressure Mean 92 85 Pulse Ox 95 94 Oxygen Delivery Method Room Air Room Air Positive well nourished, well developed and obese General Appearance ED: well developed; Negative for pallor Nutritional Appearance: obese HEENT Reports moist mucous membranes HEENT Narrative: No tongue or lip swelling no oral lesions no airway edema or compromise Eyes PERRL and EOMs intact bilaterally General Eye ED: Negative for scleral icterus Neck supple and no JVD Neck Narrative: No nuchal rigidity or meningeal signs Chest Wall palpation of chest normal Resp normal respiratory effort Resp Narrative: Breath sounds are diminished throughout but otherwise clear to auscultation without nasal flaring retractions tachypnea or accessory muscle use No orthopnea noted Cardio regular rate and regular rhythm Rate: other Other Details: Heart is regular rate and rhythm with occasional ectopic beat noted Radial and carotid pulses are equal and symmetric GI normal to inspection, nondistended, normoactive bowel sounds, non-tender, non-distended and no masses GI Narrative: No voluntary guarding or rigidity or pulsatile mass No fluid wave noted Auscultation: normoactive bowel sounds Palpation: soft Extremity Extremity Narrative: Trace to +1 pitting edema to the bilateral lower extremities that is equal and symmetric Negative Homans' sign bilaterally Neuro oriented x3, CN's II-XII intact bilaterally and no sensory deficits noted Sensorium / Orientation: alert Motor Exam: strength 5/5 throughout Psych mental status grossly normal Skin no rashes or lesions noted General Skin Exam: Negative for jaundice or pallor MDM MDM MDM Narrative Medical decision making narrative: Patient arrived to the ER hypertensive but otherwise with stable vitals. He reported feeling better after arrival to the ER. Differential diagnosis is for A-fib with RVR versus a flutter versus another cardiac dysrhythmia versus acute coronary syndrome versus pneumonia versus congestive heart failure exacerbation versus acute blood loss anemia or electrolyte abnormality. Secondary to this basic blood work and a chest x-ray were ordered. Labs revealed no clinically significant findings such as acute blood loss anemia acute kidney injury or severe electrolyte abnormality. 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 Without any type of medication the patient's blood pressure improved. At this time he is not hypoxic or in respiratory distress he is not requiring supplemental oxygen he has no signs of persistent cardiac dysrhythmia or acute coronary syndrome or an infectious process or fluid overload and therefore is otherwise safe for discharge and can follow-up on an outpatient basis History & Record Review Discussion w/independent historian: Patient Lab Data Attestation: I reviewed the patient's lab results. Labs: Laboratory Results - last 24 hr 10/30/23 22:40 WBC 10.1 RBC 4.97 Hgb 13.3 Hct 41.4 MCV 83.3 MCH 26.8 L MCHC 32.1 RDW Std Deviation 43.8 RDW Coeff of Loretta 14.5 Plt Count 219 MPV 10.0 Immature Gran % (Auto) 0.500 Neut % (Auto) 63.4 Lymph % (Auto) 25.5 Surry % (Auto) 7.7 Eos % (Auto) 2.1 Baso % (Auto) 0.8 Absolute Neuts (auto) 6.4 Absolute Lymphs (auto) 2.57 Nucleated RBC % 0 Sodium 140 Potassium 3.8 Chloride 108 H Carbon Dioxide 24.0 Anion Gap 8 BUN 17 Creatinine 1.36 H Estim Creat Clear Calc 91.07 Est GFR (MDRD) Af Amer 67 Est GFR (MDRD) Non-Af 55 L BUN/Creatinine Ratio 12.5 Glucose 190 H Calcium 9.3 Magnesium 1.9 Troponin I High Sens 16 B-Natriuretic Peptide 32.2 Radiography Diagnostic Testin view chest x-ray as interpreted by the emergency medicine physician reveals no acute infiltrate pneumothorax pleural effusion or widening of the mediastinum Discharge Plan Triage Chief Complaint: Shortness of Breath Other Complaint: Chest Pain ED Provider: Cortez Kinsey Dx/Rx/DC Orders Clinical Impression: Heart palpitations, Dyspnea, 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, Paroxysmal atrial fibrillation, Essential hypertension, PAC (premature atrial contraction) Instructions: ED Dyspnea, ED Palpitations Prescriptions: No Action Asmanex Twisthaler 110 mcg (30 doses) aerosol powdr breath activated 1 inh INHALATION DAILY PRN (Reason: Asthma) losartan 50 mg tablet 100 mg PO QHS Patient Comments: TAKE 2 TABLETS BY MOUTH EVERY DAY metformin 500 mg tablet extended release 24 hr 500 mg PO BID hydroxychloroquine 200 mg tablet 200 mg PO BID amlodipine 10 MG tablet 10 mg PO QHS Patient Comments: blood pressure duloxetine 30 mg capsule,delayed release(DR/EC) 30 mg PO DAILY Patient Comments: TAKE 1 CAPSULE BY MOUTH EVERY DAY ondansetron HCl 4 mg tablet 4 mg PO Q8H PRN (Reason: nausea and vomiting) Patient Comments: TAKE 1 TABLET BY MOUTH NEEDED THREE TIMES DAILY FOR 30 DAYS meclizine [Antivert] 25 mg tablet,chewable 25 mg PO TID PRN (Reason: dizziness) Qty: 30 0RF hydralazine 100 mg tablet See Rx Instructions .ROUTE .COMPLEX Qty: 90 11RF Dose Instruction: TAKE 1 TABLET BY MOUTH THREE TIMES A DAY Rx Instructions: TAKE 1 TABLET BY MOUTH THREE TIMES A DAY Eliquis 5 mg tablet 5 mg PO BID Qty: 60 11RF isosorbide mononitrate 60 mg tablet extended release 24 hr 60 mg PO DAILY Qty: 30 11RF spironolactone 25 mg tablet 25 mg PO DAILY Qty: 30 11RF Primary Care Provider: Beulah Dexter Referrals: Beulah Dexter, GRAPHIC DESIGN TEACHER-C [Primary Care Provider] - Activity Restrictions/Additional Instructions: Please continue all of your home medications as directed by your doctor. Your workup today did not show any sign of heart damage or pneumonia or fluid overload and there is no abnormal heart rhythm noted while in the ER. Please return to the ER should you have any further concerns or worsening of symptoms Print Language: Kyrgyz Disposition Disposition: Home, Self Care
[2023-10-30 22:54] LABS: Absolute Lymphocyte Count 2.57 X10^3/uL (0.83-4.51); Absolute Neutrophil Count 6.4 X10^3/uL (2.0-7.7); Basophil# 0.08 X10^3/uL; Basophil% 0.8 % (0-1); Eosinophil# 0.21 X10^3/uL; Eosinophils% 2.1 % (0-5); Hematocrit 41.4 % (40-54); Hemoglobin 13.3 g/dL (13.0-16.5); Lymphocyte # 2.57 X10^3/ul (0.83-4.51); Lymphocyte % 25.5 % (19-41); Mean Corp Hgb Conc 32.1 g/dL (32-36); Mean Corpuscular Hgb 26.8 pg (27.0-32.0); Mean Corpuscular Volume 83.3 fL (80-94); Monocyte# 0.78 X10^3/uL; Monocyte% 7.7 % (0-10); NRBC Flagged by Analyzer 0 % (0-5); Neutrophil # 6.38 X10^3/uL (2.7-7.7); Neutrophil % 63.4 % (47-70); Platelet Count 219 K/mm3 (150-450); RBC Distribution Width CV 14.5 % (11.6-14.6); RBC Distribution Width SD 43.8 fl (35.1-43.9); Red Blood Count 4.97 M/mm3 (4.6-6.2); White Blood Count 10.1 K/mm3 (4.4-11.0)
[2023-10-30 23:00] VITALS: BP 167/70; PULSE 70; RESP 20; TEMP 36.4; O2SAT 95
[2023-10-30 23:06] LABS: Anion Gap 8 (5-15); BUN 17 mg/dL (7-18); BUN/Creat Ratio 12.5 RATIO (10-20); Calcium,Total 9.3 mg/dL (8.5-10.1); Chloride 108 mmol/L (98-107); Creatinine, Serum 1.36 mg/dL (0.70-1.30); EST Glomerular Filtration Rate 55 mL/min (>60); Est Glom Filt Rate - Afr Amer 67 mL/min (>60); Estimated Creatinine Clearance 91.07 ml/min; Glucose 190 mg/dL (74-106); Magnesium 1.9 mg/dL (1.6-2.6); Potassium 3.8 mmol/L (3.5-5.1); Sodium Level 140 mmol/L (136-145); Troponin-I HS 16 pg/mL (3.0-78.0)
[2023-10-30 23:14] LABS: BNP,B-Type NATRIURETIC PEPTIDE 32.2 pg/mL (0-100)
[2023-10-31] VITALS: BP 147/66; PULSE 62; RESP 20; TEMP 36.3; O2SAT 94
[2023-10-31 00:19] VITALS: BP 140/75; PULSE 62; RESP 16; TEMP 36.3; O2SAT 95
== END 2023-10-31 00:22 | disposition home or self-care (01) ==
PROVIDERS: Emergency Provider Emergency Medicine; PCP Nurse Practitioner Family; Visit Provider Emergency Medicine
DX: R00.2 Palpitations (principal); I48.0 Paroxysmal atrial fibrillation; E11.42 Type 2 diabetes mellitus with diabetic polyneuropathy; Z79.01 Long term (current) use of anticoagulants; I49.1 Atrial premature depolarization; I10 Essential (primary) hypertension; E78.5 Hyperlipidemia, unspecified; K21.9 Gastro-esophageal reflux disease without esophagitis; Z79.899 Other long term (current) drug therapy; E66.9 Obesity, unspecified; R06.02 Shortness of breath
CPT/HCPCS: 71046; 80048; 83735; 83880; 84484; 85025; 93005; 99283; A4216

== ENCOUNTER → 2023-12-07 | Outpatient (CLI) | payer MEDICARE, OTHER, SELFPAY ==
--- NOTE | 2023-12-07 09:23 | NM_ITS ---
CLINICAL: 68-year-old male with history of clinically suspected cardiac amyloidosis. 99m Tc PYROPHOSPHATE CARDIAC AMYLOID EXAMINATION COMPARISON: None available FINDINGS: Following the intravenous administration of 21.1 mCi of 99m Tc pyrophosphate, anterior acquisitions of the thorax reveal: 1. Planar projections demonstrate mild increased pharmaceutical concentration within the context of the left ventricular myocardium for a Perugini score of 1. The heart to contralateral ratio was calculated to be 0.85 (normal < 1.5:1). [place] Images Cardiac Amyloid IMPRESSION: 1. NEGATIVE EXAMINATION. There is no scintigraphic evidence of ATTR cardiac amyloidosis on the current evaluation. (Li et al, Diagnostics 11: [id number]). Electronically Signed: Bigg Burger DO at 22:08 EDT ,
== END | disposition home or self-care (01) ==
LOC: NM 09:22
PROVIDERS: PCP Nurse Practitioner Family; Referring Provider Internal Medicine Cardiovascular Disease; Visit Provider Internal Medicine Cardiovascular Disease
DX: R53.1 Weakness (principal); R06.02 Shortness of breath; R53.83 Other fatigue; R00.1 Bradycardia, unspecified; Z98.890 Other specified postprocedural states
CPT/HCPCS: 78800

== ENCOUNTER → 2023-12-11 | Outpatient (CLI) | payer MEDICARE, OTHER, SELFPAY ==
[2023-12-15 13:09] LABS: Albumin 3.5 g/dL (2.9-4.4); Alpha-1-Globulins 0.2 g/dL (0.0-0.4); Alpha-2-Globulins 0.9 g/dL (0.4-1.0); Free Kappa Light Chains 30.6 mg/L (3.3-19.4); Free Lambda Light Chains 17.6 mg/L (5.7-26.3); Gamma Globulin 0.9 g/dL (0.4-1.8); Immunoglobulin A 381 mg/dL (61-437); Immunoglobulin G 1004 mg/dL (603-1613); Immunoglobulin M 77 mg/dL (20-172); PROEL- TOTAL PROTEIN 6.7 g/dL (6.0-8.5); PROELU- Albumin, Urine 37.5 % (.); PROELU- Alpha-1-Globulin,Ur 2.2 % (.); PROELU- Alpha-2-Globulin,Ur 16.6 % (.); PROELU- Beta Globulin, Ur 26.6 % (.); PROELU- Gamma Globulin, Ur 17.1 % (.); Total Protein, Ur 7.5 mg/dL (Not Estab.)
== END | disposition home or self-care (01) ==
PROVIDERS: PCP Nurse Practitioner Family; Referring Provider Nurse Practitioner Family; Visit Provider Nurse Practitioner Family
DX: Z98.890 Other specified postprocedural states (principal)
CPT/HCPCS: 36415; 82784; 83883; 84165; 84166; 86334

== ENCOUNTER → 2024-04-05 | Outpatient (CLI) | payer MEDICARE, OTHER, SELFPAY ==
--- NOTE | 2024-04-05 14:35 | ECHOCS_ITS ---
Reason For Study: Dyspnea Procedure This was a 2D Doppler, Color Flow transthoracic echocardiogram. Contrast injection was performed. Unable to perform strain due to poor image quality. Exam performed in department. Left Ventricle Normal LV size. Left ventricular systolic function is normal. The left ventricular ejection fraction is 55 %. No regional wall motion abnormalities noted. Right Ventricle Normal RV size. Normal systolic function. Atria Normal left atrium. Normal right atrium. Mitral Valve There is mild to moderate mitral annular calcification. Tricuspid Valve Normal tricuspid valve. Aortic Valve Trisinus/trileaflet aortic valve. Pulmonic Valve Normal pulmonic valve. Great Vessels Mildly dilated aortic root. The pulmonary artery is normal size. Inferior vena cava collapse with respiration. Pericardium/Pleural No pericardial effusion. Medication Diluted definity 3ml given slow IV push to enhance endocardial definition. MMode/2D Measurements & Calculations LVIDd: 4.7 cm IVSd: 1.2 cm asc Aorta Diam: 4.1 cm LVIDs: 3.5 cm LVPWd: 1.2 cm RVDd: 3.4 cm FS: 26.3 % LAV(MOD-bp): 81.6 ml LVAd ap4: 34.2 cm2 LVAd ap2: 37.3 cm2 LAV(MOD-bp) Indexed: 27.8 ml/m2 LVLd ap4: 8.2 cm LVLd ap2: 8.5 cm LAV(MOD-sp2): 84.4 ml EDV(MOD-sp4): 115.4 ml EDV(MOD-sp2): 134.1 ml LAV(MOD-sp4): 80.9 ml EDV(sp4-el): 120.5 ml EDV(sp2-el): 139.5 ml LVAs ap4: 22.4 cm2 LVAs ap2: 24.5 cm2 LVLs ap4: 7.2 cm LVLs ap2: 7.3 cm ESV(MOD-sp4): 58.1 ml ESV(MOD-sp2): 66.8 ml ESV(sp4-el): 59.3 ml ESV(sp2-el): 69.8 ml EF(MOD-sp4): 49.7 % EF(MOD-sp2): 50.2 % EF(sp4-el): 50.8 % SV(MOD-sp4): 57.3 ml SV(MOD-sp2): 67.4 ml SV(sp4-el): 61.2 ml SI(MOD-sp4): 19.6 ml/m2 SI(MOD-sp2): 23.0 ml/m2 LA A4 area: 25.7 cm2 LA dimension(2D): 5.5 cm RA A4 area: 19.7 cm2 TAPSE: 1.9 cm Doppler Measurements & Calculations MV E max cornelius: 102.0 cm/sec Lat Peak E' Cornelius: 9.2 cm/sec Med Peak E' Cornelius: 7.9 cm/sec E/E' lat: 11.1 E/E' med: 13.0 Ao V2 max: 114.6 cm/sec LV V1 max: 85.1 cm/sec PA V2 max: 101.5 cm/sec Ao max P.4 mmHg LV V1 max P.9 mmHg Ao V2 mean: 86.0 cm/sec Ao mean P.2 mmHg Ao V2 VTI: 21.3 cm ECHO/Echo Complete W/ Contrast Interpretation Summary Normal LV size. Left ventricular systolic function is normal. The left ventricular ejection fraction is 55 %. Unable to perform strain due to quality Contrast injection was performed. Ordering Physician: Miguel Champion Referring Physician: Beulah Dexter Performed By: Clary Deluna, BRAYDEN, RVT
== END | disposition home or self-care (01) ==
LOC: CVS 14:32
PROVIDERS: PCP Nurse Practitioner Family; Referring Provider Internal Medicine Hematology & Oncology; Visit Provider Internal Medicine Hematology & Oncology
DX: R06.00 Dyspnea, unspecified (principal); R06.89 Other abnormalities of breathing
CPT/HCPCS: 93306; Q9957; A4216; C8929

== ENCOUNTER 2024-04-22 10:54 | Outpatient (RCR) | payer MEDICARE, OTHER, SELFPAY ==
[2024-04-15 13:03] LABS: International Normalized Ratio 1.2; Prothrombin Time (Protime)PT. 15.4 SECONDS (11.7-14.9)
[2024-04-22 12:36] LABS: International Normalized Ratio 2.2; Prothrombin Time (Protime)PT. 24.9 SECONDS (11.7-14.9)
== END 2024-04-22 18:00 | disposition home or self-care (01) ==
LOC: LAB 10:54
PROVIDERS: PCP Nurse Practitioner Family; Referring Provider Internal Medicine Cardiovascular Disease; Visit Provider Internal Medicine Cardiovascular Disease
DX: I48.19 Other persistent atrial fibrillation (principal); I48.91 Unspecified atrial fibrillation
CPT/HCPCS: 36415; 85610

== ENCOUNTER 2024-05-05 15:49 | Outpatient (RCR) | payer MEDICARE, OTHER, SELFPAY ==
[2024-05-05 16:38] LABS: International Normalized Ratio 2.9; Prothrombin Time (Protime)PT. 31.3 SECONDS (11.7-14.9)
== END 2024-05-20 18:00 | disposition home or self-care (01) ==
LOC: LAB 15:49
PROVIDERS: PCP Nurse Practitioner Family; Referring Provider Internal Medicine Cardiovascular Disease; Visit Provider Internal Medicine Cardiovascular Disease
DX: I48.19 Other persistent atrial fibrillation (principal); Z79.01 Long term (current) use of anticoagulants
CPT/HCPCS: 36415; 85610

== ENCOUNTER 2024-06-15 13:16 | Outpatient (RCR) | payer MEDICARE, OTHER, SELFPAY ==
[2024-06-01 13:53] LABS: International Normalized Ratio 3.9
[2024-06-06 15:30] LABS: International Normalized Ratio 2.9; Prothrombin Time (Protime)PT. 31.3 SECONDS (11.7-14.9)
[2024-06-15 14:44] LABS: International Normalized Ratio 1.9; Prothrombin Time (Protime)PT. 22.5 SECONDS (11.7-14.9)
== END 2024-06-15 18:00 | disposition home or self-care (01) ==
LOC: LAB 13:16
PROVIDERS: PCP Nurse Practitioner Family; Referring Provider Internal Medicine Cardiovascular Disease; Visit Provider Internal Medicine Cardiovascular Disease
DX: I48.19 Other persistent atrial fibrillation (principal)
CPT/HCPCS: 36415; 85610

== ENCOUNTER 2024-06-29 08:31 | Outpatient (RCR) | payer MEDICARE, OTHER, SELFPAY ==
[2024-06-29 08:39] LABS: Bacteria 0 SEEN /hpf (None Seen); Mucous, Urine 0 SEEN /hpf (<or=2+); Red Blood Cells-Urine 0 SEEN /hpf (0-5)
[2024-06-29 09:24] LABS: Absolute Lymphocyte Count 2.65 X10^3/uL (0.83-4.51); Absolute Neutrophil Count 5.2 X10^3/uL (2.0-7.7); Basophil# 0.08 X10^3/uL; Basophil% 0.9 % (0-1); Eosinophil# 0.16 X10^3/uL; Eosinophils% 1.8 % (0-5); Hematocrit 44.7 % (40-54); Hemoglobin 14.8 g/dL (13.0-16.5); Lymphocyte # 2.65 X10^3/ul (0.83-4.51); Lymphocyte % 30.1 % (19-41); Mean Corp Hgb Conc 33.1 g/dL (32-36); Mean Corpuscular Hgb 27.1 pg (27.0-32.0); Mean Corpuscular Volume 81.7 fL (80-94); Mean Platelet Vol. 10.2 fl (6.2-12.0); Monocyte# 0.72 X10^3/uL; Monocyte% 8.2 % (0-10); NRBC Flagged by Analyzer 0 % (0-5); Neutrophil # 5.17 X10^3/uL (2.7-7.7); Neutrophil % 58.8 % (47-70); Platelet Count 238 K/mm3 (150-450); RBC Distribution Width CV 15.6 % (11.6-14.6); RBC Distribution Width SD 46.5 fl (35.1-43.9); Red Blood Count 5.47 M/mm3 (4.6-6.2); White Blood Count 8.8 K/mm3 (4.4-11.0)
[2024-06-29 09:47] LABS: Color, Urine Yellow (Yellow); Glucose, Dipstick Normal (Normal); Ketone-Dipstick Negative (Negative); Leukocyte Esterase-Dipstick 100 /ul (Negative); Nitrite-Dipstick Negative (Negative); Occult Blood-Urine Negative /ul (Negative); Protein-Dipstick 15 mg/dl (Negative); Specific Gravity, Urine 1.025 (1.002-1.030); Urine Bilirubin Dipstick Negative (Negative); Urine Clarity Sl. Cloudy (Clear); Urine Urobilinogen Normal (Normal)
[2024-06-29 10:06] LABS: International Normalized Ratio 2.7; Prothrombin Time (Protime)PT. 28.9 SECONDS (11.7-14.9)
[2024-06-29 10:28] LABS: Microalbumin,Random Urine 21.7 mg/L (NO RANGE EST.); Microalbumin:Creatinine Ratio 111.9 mg/g CRE
[2024-06-29 10:53] LABS: Squamous Epithelial Cells - UA 0-5 SEEN /hpf (0-5); White Blood Cells 0-5 SEEN /hpf (0-5)
[2024-06-29 12:18] LABS: FOLATES,SERUM (FOLIC ACID) 6.31 ng/mL (4.60-34.80)
[2024-06-29 14:55] LABS: ALB/GLOB Ratio 1.2 RATIO (0.9-2.4); AST(SGOT) 29 U/L (<=37); Alanine Aminotransfer ALT/SGPT 26 U/L (<=46); Albumin, Serum 4.1 g/dL (3.4-4.8); Alkaline Phosphatase 44 U/L (40-129); Anion Gap 15 (5-15); BUN 25 mg/dL (4-19); BUN/Creat Ratio 18.7 RATIO (10-20); Calcium,Total 9.5 mg/dL (7.6-11.0); Carbon Dioxide 16.8 mmol/L (21.0-32.0); Chloride 106 mmol/L (98-108); Cholesterol 143 mg/dL (<=200); Creatinine, Serum 1.32 mg/dL (0.70-1.20); EST Glomerular Filtration Rate 58 (>60); Globulin 3.4 g/dL (2.2-4.2); Glucose 106 mg/dL (70-99); High Density Lipoprotein 37 mg/dL; Low Density Lipoprotein Calc. 83 mg/dL; Potassium 4.1 mmol/L (3.3-5.1); Protein, Total 7.5 g/dL (5.9-8.4); Sodium Level 138 mmol/L (133-145); Total Bilirubin 0.48 mg/dL (0.00-1.30); Triglycerides 116 mg/dL; Very Low Density Lipoprotein 23 mg/dL (5-40); Vitamin B12 555 pg/mL (180-914); cholesterol:hdl ratio screen 3.84
== END 2024-07-20 18:00 | disposition home or self-care (01) ==
LOC: LAB 08:31
PROVIDERS: PCP Nurse Practitioner Family; Referring Provider Internal Medicine Cardiovascular Disease; Visit Provider Internal Medicine Cardiovascular Disease
DX: I48.19 Other persistent atrial fibrillation (principal); E78.00 Pure hypercholesterolemia, unspecified; Z12.5 Encounter for screening for malignant neoplasm of prostate; R53.83 Other fatigue; E11.69 Type 2 diabetes mellitus with other specified complication
CPT/HCPCS: 36415; 80053; 80061; 81001; 82043; 82570; 82607; 82746; 84153; 85025; 85610; G0103

== ENCOUNTER 2024-08-02 09:43 | Outpatient (RCR) | payer MEDICARE, OTHER, SELFPAY ==
[2024-08-02 10:23] LABS: International Normalized Ratio 2.4; Prothrombin Time (Protime)PT. 26.8 SECONDS (11.7-14.9)
== END 2024-08-02 18:00 | disposition home or self-care (01) ==
LOC: LAB 09:43
PROVIDERS: PCP Nurse Practitioner Family; Referring Provider Internal Medicine Cardiovascular Disease; Visit Provider Internal Medicine Cardiovascular Disease
DX: I48.19 Other persistent atrial fibrillation
CPT/HCPCS: 36415; 85610

== ENCOUNTER 2024-08-02 10:32 | Day surgery (SDC) | payer MEDICARE, OTHER, SELFPAY ==
[2024-08-01 08:28] VITALS: BMI 50.2
--- NOTE | 2024-08-02 12:29 | PCM.OP.PRO2 ---
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 Informed consent was obtained. Anterior posterior pads were applied. The patient was seen by Dr. Quinones of the critical care division. 300 J of synchronized DC cardioversion energy were applied after the patient received intravenous propofol. Patient did report return to sinus rhythm almost immediately. Patient tolerated the procedure well. Procedure findings: Successful DC cardioversion from atrial fibrillation to sinus rhythm. Complications Complications: No
--- NOTE | 2024-08-02 12:45 | PRO.PCM_ITS ---
Procedures Pulmonary Pulmonary Procedures /Diagnostic Testin Con Sedation Non-invasive Procedural Procedure Information Date of Procedure: 08/02/24 Description of procedure: CONSCIOUS SEDATION REPORT DATE OF SERVICE: August 02, 2024 BRIEF HISTORY OF PRESENT ILLNESS: The patient is a 69-year-old male who presented to [facility] for an elective outpatient cardioversion due to underlying atrial fibrillation. The patient did undergo a prior cardioversion in October 2021, during which time, the patient required 130 mg of propofol during the procedure. The patient denied any prior anesthetic complications. His last surface echocardiogram demonstrated an ejection fraction of approximately 55%. He remains anticoagulated on Coumadin with an INR of 2.4. The patient does have a known history of obstructive sleep apnea and reports compliance with nocturnal PAP therapy. PHYSICAL EXAMINATION: VITAL SIGNS: Reviewed and were acceptable. GENERAL: The patient is a male, in no apparent distress, speaking in full sentences. HEENT: Normocephalic, atraumatic. Mucous membranes are moist and pink. Good mouth opening noted. Trachea is midline. MPIII CHEST: S1, S2 irregularly irregular. No murmurs, rubs or gallops were noted. LUNGS: Clear to auscultation bilaterally without appreciable wheezes, rales or rhonchi. ABDOMEN: Soft, nontender, nondistended. Positive bowel sounds. EXTREMITIES: There is no clubbing, cyanosis or edema. ASA Class: II DESCRIPTION OF PROCEDURE: After confirmation of informed consent, the patient's anesthesia plan was reviewed in detail. Propofol was chosen. Risks and benefits were reviewed and the patient agreed to proceed. At 1220, the patient was given his first bolus of propofol. In total, the patient required 80 mg of propofol to achieve an appropriate level of sedation, after which time, he was given a 300 joule synchronized cardioversion by Dr. Ocasio at the bedside. This was successful in achieving normal sinus rhythm. The patient was monitored until 1235, at which time he reached his baseline mental status and function. The patient tolerated the procedure well. COMPLICATIONS: None ESTIMATED BLOOD LOSS: None RECOMMENDATIONS: Okay to recover in usual fashion.
--- NOTE | 2024-08-02 13:03 | PCM.CONS.C ---
Assessment & Plan Assessment/Plan (1) PAF (paroxysmal atrial fibrillation): PLAN: (1) PAF (paroxysmal atrial fibrillation): Status: Chronic Plan: [id number] score: 5 (age, HTN, CVA +2, DM) (7.2% stroke risk) Atrial fibrillation stage: 3A, paroxysmal DCCV: 10/30/2021 Holter monitor: 09/09/2023?no atrial fibrillation 12 Lead EC06/30/2024-atrial fibrillation 75 bpm Echocardiogram: 04/05/2024-EF: 55%, normal left and right atrium size Heart Rate Control: None Anticoagulation/CVA Protection: Warfarin He has demonstrated therapeutic weekly INRs and has agreed to DC cardioversion. Hopefully improvement in his rhythm would translate to improvement in his shortness of breath. Was benefits alternatives were explained to him he understands and agrees to proceed. HPI Consult Data Date of Consult: 08/02/24 HPI Narrative HPI Narrative: JONO PENA, is a 69 M who presents for DC cardioversion. He has a history of hypertension and paroxysmal atrial fibrillation. Earlier this year he presented to his PCP with concerns over dizziness, fatigue and palpitations. He was noted to have atrial fibrillation. He was started on Eliquis. Eliquis was later discontinued and changed to Coumadin due to nichole. He has a history of paroxysmal atrial fibrillation with a cardioversion in October 2021. He also has a history of diabetes and previous bilateral carpal tunnel surgery. He tells me that his oncologist has detected that he has elevated light chain activity. He underwent a [facility] nuclear scan on 12/07/2023 that was negative for cardiac amyloidosis. Echocardiogram in March 2024 showed LV function 55%, normal left and right atrium, and mildly dilated aortic root at 4.1 cm. He denies chest, arm, jaw, or neck discomfort. He acknowledges palpitations and bilateral lower extremity edema. He denies claudication. He acknowledges shortness of breath with activity walking upwards to 50 feet. This is a persistent symptom, but he feels to be worsening. He denies shortness of breath at rest, orthopnea, cough, or PND. He acknowledges lightheadedness and weakness. He acknowledges fatigue. He denies dizziness, near-syncope, or syncope. He has been taking his Coumadin and he has had at least 3 therapeutic INRs over the last 3 weeks. [facility] Medical History Hemorrhage of right kidney Hypertension A-fib Thoracic aortic aneurysm without rupture CVA (cerebral vascular accident) (~06/19/22) PAF (paroxysmal atrial fibrillation) Cancer History of steroid therapy Arthritis Bladder disease Low iron Fatty liver Restless legs Back pain Lightheaded Dietary restriction History of ulceration Non-smoker BiPAP (biphasic positive airway pressure) dependence Shortness of breath on exertion Leg cramps History of pain when walking History of edema History of echocardiogram History of stress test Hypertension Cardiology follow-up encounter Persistent atrial fibrillation Asthma Type 2 diabetes mellitus Peripheral neuropathy Gout Inguinal hernia Spinal stenosis LDL (low density lipoprotein receptor disorder) GERD (gastroesophageal reflux disease) Morbid obesity Chronic back pain Essential hypertension Home Medications ?Medication ?Instructions ?Recorded ?Last Taken ?Type amlodipine 10 mg tablet 10 mg PO QHS 06/19/15 06/18/15 History mometasone 110 mcg/actuation(30 1 inh inhalation DAILY PRN Asthma 06/16/18 Unknown History doses) breath activated powder inhaler (Asmanex Twisthaler) losartan 50 mg tablet 100 mg PO QHS 09/11/21 Unknown History metformin 500 mg tablet,extended 500 mg PO BID 10/23/21 Unknown History release 24 hr meclizine 25 mg chewable tablet 25 mg PO TID PRN dizziness #30 tabs 02/11/23 Unknown Rx (Antivert) ondansetron HCl 4 mg tablet 4 mg PO Q8H PRN nausea and vomiting 02/11/23 Unknown History isosorbide mononitrate 60 mg 60 mg PO DAILY #30 tabs 09/18/23 Unknown Rx tablet,extended release 24 hr spironolactone 25 mg tablet 25 mg PO DAILY #30 tabs 10/29/23 Unknown Rx warfarin 5 mg tablet 5 mg PO QDAY #60 tabs 04/05/24 Unknown Rx hydroxychloroquine 200 mg tablet 200 mg PO QDAY 06/30/24 Unknown History hydralazine 100 mg tablet 100 mg PO Q8H 08/02/24 08/02/24 History Allergy/AdvReac Type Severity Reaction Status Date / Time doxazosin (From Cardura) Allergy Intermediate tired Verified 06/30/24 13:07 levofloxacin (From Levaquin) Allergy Intermediate tendonitis Verified 06/30/24 13:07 hydrochlorothiazide AdvReac Severe Severe Verified 06/30/24 13:07 myalgias Family History Mother Heart disease Diabetes Hypertension Father Hypertension Other Bradycardia Surgical History Hx of hammer toe correction History of carpal tunnel surgery of right wrist History of carpal tunnel surgery of left wrist History of cardioversion (10/30/21) History of appendectomy History of arthroscopic knee surgery Social History household members: spouse Smoking Status: Never smoker alcohol intake: never substance use type: does not use caffeine: Yes Type: carbonated beverages, coffee and tea ROS Constitutional Constitutional: Denies fever(s) or weight loss Eyes Eyes: Reports systems reviewed and no addt'l complaints, except as documented ENT HEENT: Reports systems reviewed and no addt'l complaints, except as documented Cardiovascular Cardiovascular: Denies chest pain at rest, chest pain with activity, dyspnea at rest, dyspnea on exertion, edema, palpitations or paroxysmal nocturnal dyspnea Respiratory/Chest Respiratory/Chest: Denies dyspnea on exertion, productive cough, shortness of breath at rest or shortness of breath with exertion Gastrointestinal Gastrointestinal: Denies change in bowel habits, nausea, vomiting or weight changes Genitourinary Genitourinary: Denies difficulty urinating Musculoskeletal Musculoskeletal: Denies joint stiffness or muscle weakness Integumentary Integumentary: Denies lesions Neurologic Neurologic: Denies dizziness or syncope Psychiatric Psychiatric: Denies anxiety Endocrine Endocrinology: Denies excessive sweating or fatigue Hematologic/Lymphatic Hematologic/Lymphatic: Denies anemia Allergic/Immunologic Allergic/Immunologic: Denies seasonal rhinorrhea Physical Exam Const alert, oriented x3 and no apparent distress General Appearance: cooperative HEENT hearing grossly normal bilaterally Head and Scalp: atraumatic Eyes EOMs intact bilaterally Neck General: normal visual inspection Chest inspection of chest normal and palpation of chest normal Resp normal respiratory effort Auscultation: clear to auscultation bilaterally Cardio S1 normal heart sound and S2 normal heart sound Jugular Venous Distention: JVD Rhythm: abnormal rhythm irregularly irregular GI normal to inspection, nondistended, normoactive bowel sounds Extremity normal capillary refill and no pedal edema Peripheral Pulses: Yes pulses 2+ throughout and femoral pulses present Skin no rashes or lesions noted Neuro oriented x3 and CN's II-XII intact bilaterally Psych Appearance: grossly normal and appropriate Risk Stratification Risk Stratification Applicable: No Objective Data Vital Signs: Weight: 402 lb Body Mass Index (BMI) 50.2 Cardiology Labs/Tests Rhythm: EKG: ECHO: Stress Test: Cardiac Cath: PCI: CT Surgery: Holter monitor: EPS: PPM: CXR: Chest CT Scan:
== END 2024-08-02 13:30 | disposition home or self-care (01) ==
PROVIDERS: PCP Nurse Practitioner Family; Referring Provider Internal Medicine Cardiovascular Disease; Visit Provider Internal Medicine Cardiovascular Disease
DX: I48.0 Paroxysmal atrial fibrillation (principal); E11.9 Type 2 diabetes mellitus without complications; Z79.01 Long term (current) use of anticoagulants; Z86.73 Personal history of transient ischemic attack (TIA), and cerebral infarction without residual deficits; I10 Essential (primary) hypertension
CPT/HCPCS: 92960; 93005

== ENCOUNTER → 2024-12-02 | Outpatient (CLI) | payer MEDICARE, OTHER, SELFPAY ==
--- NOTE | 2024-12-02 14:39 | ART_ITS ---
Reason For Study Reason For Study: PVD Procedure A bilateral lower extremity continuous wave Doppler with analog waveform analysis and ankle brachial indexes. Left Segmental Pressures Left brachial= 169mmHg. Left posterior tibial artery = >254mmHg. Left dorsalis pedis artery = >254mmHg. Left digit = 182 mmHg. The left dorsalis pedis waveforms are triphasic. The left posterior tibial artery waveforms are triphasic. Right Segmental Pressures Right brachial= 161mmHg. Right posterior tibial artery = >254mmHg. Right dorsalis pedis artery = >254mmHg. Right digit = 147 mmHg. The right dorsalis pedis waveforms are triphasic. The right posterior tibial artery waveforms are triphasic. Indices The right ankle brachial index by the dorsalis pedis is NC. The right ankle brachial index by the posterior tibial artery is NC. The right digital-brachial index is 0.87. The left ankle brachial index by the dorsalis pedis is NC. The left ankle brachial index by the posterior tibial artery is NC. The left digital-brachial index is 1.08. VL/Ankle Brachial Index Interpretation Summary Triphasic Doppler waveforms are noted at ankle level bilaterally. Pulse-volume recordings appear satisfactory at ankle and digital levels bilaterally. Resting ankle-brachial indices could not be det ermined on either side due to the non- compressibility of the vasculature at ankle level bilaterally. Digital-brachial indices are normal bilaterally. There is evidence of arterial calcification at ankle level bilaterally. There i s no evidence of significant arterial occlusive disease in the lower extremities bilaterally. Ordering Physician: Dalia Dexter Referring Physician: DALIA DEXTER [employer] KNITTER Performed By: Mayi Mathis RVT
== END | disposition home or self-care (01) ==
LOC: CVS 14:38
PROVIDERS: PCP Nurse Practitioner Family; Referring Provider Nurse Practitioner Family; Visit Provider Nurse Practitioner Family
DX: I73.9 Peripheral vascular disease, unspecified (principal)
CPT/HCPCS: 93922

== ENCOUNTER → 2025-02-10 | Outpatient (CLI) | payer MEDICARE, OTHER, SELFPAY ==
[2025-02-10 12:53] LABS: Hematocrit 46.3 % (40-54); Hemoglobin 14.9 g/dL (13.0-16.5); Immature Granulocytes Count 0.040 X10^3/uL (0.0-0.0); Mean Corp Hgb Conc 32.2 g/dL (32-36); Mean Corpuscular Volume 81.7 fL (80-94); Mean Platelet Vol. 10.5 fl (6.2-12.0); NRBC Flagged by Analyzer 0 % (0-5); Platelet Count 246 K/mm3 (150-450); RBC Distribution Width CV 14.4 % (11.6-14.6); RBC Distribution Width SD 42.2 fl (35.1-43.9); Red Blood Count 5.67 M/mm3 (4.6-6.2); White Blood Count 11.0 K/mm3 (4.4-11.0)
[2025-02-10 13:40] LABS: Anion Gap 13 (5-15); BUN 18 mg/dL (4-19); BUN/Creat Ratio 14.0 RATIO (10-20); Calcium,Total 9.9 mg/dL (7.6-11.0); Carbon Dioxide 22.3 mmol/L (21.0-32.0); Chloride 102 mmol/L (98-108); Glucose 167 mg/dL (70-99); Magnesium 1.9 mg/dL (1.5-2.2); Potassium 4.4 mmol/L (3.3-5.1); Pro- Brain NATRIURETIC PEPTIDE 1219 pg/mL (<=900)
== END | disposition home or self-care (01) ==
LOC: LAB 12:24
PROVIDERS: PCP Nurse Practitioner Family; Referring Provider Student in an Organized Health Care Education/Training Program; Visit Provider Student in an Organized Health Care Education/Training Program
DX: I48.0 Paroxysmal atrial fibrillation (principal); R89.9 Unspecified abnormal finding in specimens from other organs, systems and tissues; R06.02 Shortness of breath; R53.83 Other fatigue; R53.1 Weakness; E78.5 Hyperlipidemia, unspecified; Z98.890 Other specified postprocedural states
CPT/HCPCS: 36415; 80048; 83735; 83880; 84443; 85025

== ENCOUNTER 2025-03-17 15:28 | Emergency (ER) | payer MEDICARE, OTHER, SELFPAY ==
[2025-03-17 15:28] VITALS: BP 162/79; PULSE 64; RESP 25; TEMP 36.4; O2SAT 97
--- NOTE | 2025-03-17 16:17 | EX.ED.DYSGE1 ---
HPI History of Present Illness Chief Complaint: Weakness [facility] Medical History (Updated 03/06/25 @ 10:08 by REYNA Madden) A-fib New onset atrial fibrillation Hemorrhage of right kidney Hypertension Thoracic aortic aneurysm without rupture CVA (cerebral vascular accident) (~06/19/22) PAF (paroxysmal atrial fibrillation) Cancer History of steroid therapy Arthritis Bladder disease Low iron Fatty liver Restless legs Back pain Lightheaded Dietary restriction History of ulceration Non-smoker BiPAP (biphasic positive airway pressure) dependence Shortness of breath on exertion Leg cramps History of pain when walking History of edema History of echocardiogram History of stress test Hypertension Cardiology follow-up encounter Persistent atrial fibrillation Asthma Type 2 diabetes mellitus Peripheral neuropathy Gout Inguinal hernia Spinal stenosis LDL (low density lipoprotein receptor disorder) GERD (gastroesophageal reflux disease) Morbid obesity Chronic back pain Essential hypertension Home Medications Medication Instructions Recorded Last Taken Type amlodipine 10 mg tablet 10 mg PO QHS 06/19/15 06/18/15 History mometasone 110 mcg/actuation(30 1 inh inhalation DAILY PRN Asthma 06/16/18 Unknown History doses) breath activated powder inhaler (Asmanex Twisthaler) meclizine 25 mg chewable tablet 25 mg PO TID PRN dizziness #30 tabs 02/11/23 Unknown Rx (Antivert) ondansetron HCl 4 mg tablet 4 mg PO Q8H PRN nausea and vomiting 02/11/23 Unknown History isosorbide mononitrate 60 mg 60 mg PO DAILY #90 tabs 09/19/24 Unknown Rx tablet,extended release 24 hr hydralazine 50 mg tablet 50 mg PO Q8H 90 days #270 tabs 11/10/24 Unknown Rx warfarin 5 mg tablet 5 mg PO QDAY #60 tabs 12/28/24 Unknown Rx amiodarone 200 mg tablet 200 mg PO QDAY #30 tabs 02/10/25 Unknown Rx losartan 50 mg tablet 100 mg (2 x 50 mg) PO QHS #90 tabs 02/20/25 Unknown Rx metformin 500 mg tablet,extended 500 mg PO TID 90 days #270 tabs 03/06/25 Unknown Rx release 24 hr blood sugar diagnostic (OneTouch #100 ea 03/09/25 Unknown Rx Ultra Test strips) lancets 30 gauge (OneTouch #100 ea 03/09/25 Unknown Rx UltraSoft 2 Lancet) Allergy/AdvReac Type Severity Reaction Status Date / Time doxazosin (From Cardura) Allergy Intermediate tired Verified 03/17/25 15:31 levofloxacin (From Levaquin) Allergy Intermediate tendonitis Verified 03/17/25 15:31 hydrochlorothiazide AdvReac Severe Severe Verified 03/17/25 15:31 myalgias spironolactone AdvReac Diarrhea Verified 03/17/25 15:31 Family History Mother Heart disease Diabetes Hypertension Father Hypertension Other Bradycardia Surgical History Hx of hammer toe correction History of carpal tunnel surgery of right wrist History of carpal tunnel surgery of left wrist History of cardioversion (10/30/21) History of appendectomy History of arthroscopic knee surgery Social History (Updated 03/06/25 @ 09:11 by Gina Diaz LPN) adopted: No household members: spouse current occupational status: retired Smoking Status: Never smoker alcohol intake: never substance use type: does not use caffeine: Yes Type: carbonated beverages, coffee and tea seatbelt use: always do you feel safe at home: Yes EXAM Physical Exam Const Vital Signs: 03/17/25 15:28 03/17/25 17:28 03/17/25 17:29 Temperature 97.5 F L Temperature Source Oral Pulse Rate 64 58 L Respiratory Rate 25 H 18 Respiratory Effort Normal Blood Pressure 162/79 H 177/91 H Blood Pressure Mean 106 119 Pulse Ox 97 98 Oxygen Delivery Method Room Air Room Air 03/17/25 19:00 Temperature Temperature Source Pulse Rate 55 L Respiratory Rate 17 Respiratory Effort Blood Pressure 172/96 H Blood Pressure Mean 121 Pulse Ox 100 Oxygen Delivery Method Room Air MDM MDM MDM Narrative Medical decision making narrative: HISTORY OF PRESENT ILLNESS: Chief complaint: Diffuse weakness, lightheadedness 70-year-old male history of asthma, A-fib on amiodarone and warfarin, type 2 diabetes, CAD, hyperlipidemia, fatty liver, hypertension presents with generalized weakness. States he feels lightheaded on the verge of passing out. He states this began several days ago. Does note decreased p.o. intake and decreased urinary output. Denies chest pain but does note palpitations. Denies bleeding diathesis. Notes compliance with warfarin. Denies urinary complaints. Denies vomiting or diarrhea. Denies syncope. Notes compliance with warfarin. No missed doses. Patient endorses itchiness in the left calf. Notes this is reminiscent of her prior blood clot. The patient denies recent surgery in the last 4 weeks or immobilization in the last 3 days, denies previous diagnosis of PE, hemoptysis, unilateral leg swelling or malignancy with treatment the last 6 months or palliative. No estrogen use noted. REVIEW OF SYSTEMS: Pertinent positives: Diffuse weakness, lightheadedness Pertinent negatives: As per HPI PHYSICAL EXAM: Nursing triage notes reviewed, Vital signs reviewed Constitutional: please see [facility] HENT: MMM Eyes: Pupils equal round and reactive to light, Extraocular muscles intact Neck: No stridor, no JVD, full neck ROM Lungs: Clear to auscultation, No wheezing or rales. No increased work of breathing, no conversational dyspnea, no accessory muscle use, no nasal flaring. No respiratory distress noted Heart: Regular rate and rhythm, No murmurs, No rubs and No gallops, 2+ distal pulses (radial, femoral, posterior tibial) in all extremities Abdomen: Soft, there is no tenderness, rigidity, rebound or guarding, no obvious peritoneal signs, no palpable pulsatile abdominal masses, no auscultated abdominal bruit : No CVAT Extremities: 1-2+ pitting edema in bilateral lower extremities (patient notes this is his baseline) Neuro: No new focal neurological deficits, cranial nerves II through XII intact, 5/5 strength in all present extremities. Intact sensation to light touch in all present extremities, 2+ reflexes bilateral patella tendons. Skin: No rash or lesions noted MEDICAL DECISION MAKING: Chief Complaint: please see HPI External records reviewed: Reviewed prior echocardiogram from 2024 which showed ejection fraction of 55%. Factors affecting care: As per HPI Social determinants of health: none History obtained from others: none Consults: none [facility] Narrative: The patient was initially tachypneic otherwise hemodynamically stable, saturating 97% room air. Exam without focal cardiopulmonary maladies. There is slight edema noted bilateral lower extremities. I considered the following differential diagnosis: Dehydration, arrhythmia, anemia, l electrolyte disturbance, ACS, PE, DVT, CHF I obtained broad lab and imaging work to further determine if the patient was suffering from a life-threatening etiology. Initially held off on fluid resuscitation as patient blood pressure was not low or concerning. Did not give fluids until I can assure he did not have heart failure ALL IMAGES (IF OBTAINED) HAVE BEEN PERSONALLY REVIEWED AND INTERPRETED BY MYSELF. EKG with prolonged CA interval, first-degree AV block, sinus bradycardia, no evidence of high degree block, normal axis, no STEMI, no arrhythmia CBC without leukocytosis, severe anemia, no thrombocytopenia. DVT ultrasound negative BNP within normal limits. No signs of heart failure INR therapeutic CMP without evidence of acute kidney injury, significant electrolyte abnormality, anion gap to suggest end organ hypo-perfusion, no evidence of metabolic acidosis with a normal bicarbonate, no evidence of hepatobiliary obstructive pathology. High-sensitivity troponin is negative, no evidence of myocardial ischemia DVT study negative On reevaluation the patient's vital signs remained stable. He was able to ambulate without significant orthostasis. I suspect his presentation related to dehydration rather than a life-threatening etiology. The patient and/or family, caregivers express understanding. The patient and/or family, caregivers agrees with the plan. Shared decision making: I will have a discussion with the patient and or visitors regarding risk/benefits of further testing or admission. They will be made aware of of the risk/benefits inherent in this decision they will be given the opportunity to voice understanding. Total critical care time today provided was at least 0 minutes. This excludes separately billable procedures. Critical care time (if documented) is secondary to the patient having high probability of clinically significant/life threatening deterioration in the patient's condition which required my urgent intervention. Impression: 1. Diffuse weakness 2. Lightheadedness 3. Dehydration Dispo: Discharge This note was generated with [employer] dictation software. It may contain incorrect words, spelling, and punctuation that were not noted in review of the chart prior to signing. Lab Data Labs: Laboratory Results - last 24 hr 03/17/25 16:40 WBC 7.5 RBC 5.07 Hgb 13.2 Hct 40.9 MCV 80.7 MCH 26.0 L MCHC 32.3 RDW Std Deviation 43.4 RDW Coeff of Loretta 14.9 H Plt Count 184 MPV 10.0 Immature Gran % (Auto) 0.400 Neut % (Auto) 65.1 Lymph % (Auto) 25.0 Bladen % (Auto) 6.7 Eos % (Auto) 1.9 Baso % (Auto) 0.9 Absolute Neuts (auto) 4.9 Absolute Lymphs (auto) 1.86 Nucleated RBC % 0 PT 26.6 H INR 2.4 Sodium 136 Potassium 3.8 Chloride 104 Carbon Dioxide 22.1 Anion Gap 10 BUN 15 Creatinine 1.17 Est GFR (MDRD) Non-Af 67 BUN/Creatinine Ratio 13.1 Glucose 252 H Calcium 8.8 Total Bilirubin 0.29 AST 27 ALT 20 Alkaline Phosphatase 53 Troponin T High Sens 33 H NT pro BNP II 165 Total Protein 6.6 Albumin 3.6 Globulin 3.0 Albumin/Globulin Ratio 1.2 Radiography Diagnostic Testing: Clinical Impression(s) from Imaging Studies Chest X-Ray 03/17/25 16:33 IMPRESSION: Diffuse reticular opacities may reflect pulmonary interstitial edema versus atypical pneumonia. Reading Location: [facility] Venous Duplex 03/17/25 16:58 IMPRESSION: No evidence of deep venous thrombosis in the left lower extremity. Reading Location: [facility] Discharge Plan Triage Chief Complaint: Weakness ED Provider: Espinoza Metcalf Dx/Rx/DC Orders Prescriptions: No Action Asmanex Twisthaler 110 mcg (30 doses) aerosol powdr breath activated 1 inh INHALATION DAILY PRN (Reason: Asthma) amiodarone 200 mg tablet 200 mg PO QDAY Qty: 30 3RF metformin 500 mg tablet extended release 24 hr 500 mg PO TID 90 Days Qty: 270 1RF amlodipine 10 MG tablet 10 mg PO QHS Patient Comments: blood pressure ondansetron HCl 4 mg tablet 4 mg PO Q8H PRN (Reason: nausea and vomiting) Patient Comments: TAKE 1 TABLET BY MOUTH NEEDED THREE TIMES DAILY FOR 30 DAYS meclizine [Antivert] 25 mg tablet,chewable 25 mg PO TID PRN (Reason: dizziness) Qty: 30 0RF isosorbide mononitrate 60 mg tablet extended release 24 hr 60 mg PO DAILY Qty: 90 3RF hydralazine 50 mg tablet 50 mg PO Q8H 90 Days Qty: 270 3RF warfarin 5 mg tablet 5 mg PO QDAY Qty: 60 3RF Protocol: Dose Management Condition: Thursday Dose/Route: 2.5 mg Instruction: 0.5 x 5 mg tablets Condition: Thursday Dose/Route: 5 mg Instruction: 1 x 5 mg tablet Condition: Thursday Dose/Route: 5 mg Instruction: 1 x 5 mg tablet Condition: Thursday Dose/Route: 5 mg Instruction: 1 x 5 mg tablet Condition: Dose/Route: 5 mg Instruction: 1 x 5 mg tablet Condition: Thursday Dose/Route: 5 mg Instruction: 1 x 5 mg tablet Condition: Thursday Dose/Route: 5 mg Instruction: 1 x 5 mg tablet Protocol Text: Adjustment Start Date: Thursday03/08/25 INR Value: 1.9 INR Date: 03/07/25 Recheck Date: 04/07/25 losartan 50 mg tablet 100 mg PO QHS Qty: 90 3RF (DME) OneTouch Ultra Test Strip See Rx Instructions .Route Qty: 100 2RF Rx Instructions: As directed to check blood glucose daily for DMII (DME) lancets [OneTouch UltraSoft 2 Lancet] 30 gauge misc See Rx Instructions .Route Qty: 100 2RF Rx Instructions: As directed to check blood glucose daily for DMII. Primary Care Provider: Roselyn Perea Referrals: Roselyn Perea PHARMACEUTICAL SALES SPECIALIST-[facility] [Primary Care Provider, Internal Medicine] Print Language: Filipino
--- NOTE | 2025-03-17 16:33 | RAD_ITS ---
PROCEDURE: CHEST 1 VIEW (PORTABLE) 03/17/2025 REASON FOR EXAM: NEAR SYNCOPE TECHNIQUE: Frontal view of the chest. FINDINGS: Diffuse reticular opacities may reflect pulmonary interstitial edema versus atypical pneumonia. No focal consolidation. No pleural effusion or pneumothorax. Cardiac silhouette is within normal limits. No acute fractures. RAD/Chest 1 View (Portable) IMPRESSION: Diffuse reticular opacities may reflect pulmonary interstitial edema versus aty pical pneumonia. Reading Location: [facility]
--- NOTE | 2025-03-17 16:34 | EKG12_ITS ---
Test Reason : WEAKNESS Blood Pressure : */* mmHG Vent. Rate : 59 BPM Atrial Rate : 59 BPM P-R Int : 228 ms QRS Dur : 116 ms QT Int : 440 ms P-R-T Axes : 57 53 63 degrees QTcB Int : 435 ms Sinus bradycardia with 1st degree A-V block Nonspecific ST abnormality Abnormal ECG Confirmed by Thong Pearce ([id number]), manager editorial CATHERINE BANKS ([id number]) on 03/24/2025 6:49:56 AM Referred By: Confirmed By: Thong Pearce
[2025-03-17 16:51] LABS: Hematocrit 40.9 % (40-54); Hemoglobin 13.2 g/dL (13.0-16.5); Immature Granulocytes Count 0.030 X10^3/uL (0.0-0.0); Mean Corp Hgb Conc 32.3 g/dL (32-36); Mean Corpuscular Volume 80.7 fL (80-94); Mean Platelet Vol. 10.0 fl (6.2-12.0); NRBC Flagged by Analyzer 0 % (0-5); Platelet Count 184 K/mm3 (150-450); RBC Distribution Width CV 14.9 % (11.6-14.6); RBC Distribution Width SD 43.4 fl (35.1-43.9); Red Blood Count 5.07 M/mm3 (4.6-6.2); White Blood Count 7.5 K/mm3 (4.4-11.0)
--- NOTE | 2025-03-17 16:58 | US_ITS ---
PROCEDURE: VENOUS DUPLEX IMAG/LIMITED/UNI 03/17/2025 REASON FOR EXAM: M 70 y/o TECHNIQUE: Procedure Code: USVDUL Modality: US Procedure: VENOUS DUPLEX IMAG/LIMITED/UNI FINDINGS: There is no intraluminal echogenicity to suggest the presence of a deep venous thrombosis. Appropriate respiratory variation, augmentation and venous compression is noted. Diffuse soft tissue edema. Cellulitis should be excluded clinically. US/Venous Duplex Imag/Limited/Uni IMPRESSION: No evidence of deep venous thrombosis in the left lower extremity. Reading Location: [facility]
[2025-03-17 17:13] LABS: AST(SGOT) 27 U/L (<=37); Alanine Aminotransfer ALT/SGPT 20 U/L (<=46); Albumin, Serum 3.6 g/dL (3.4-4.8); Alkaline Phosphatase 53 U/L (40-129); Anion Gap 10 (7-18); BUN 15 mg/dL (4-19); BUN/Creat Ratio 13.1 RATIO (10-20); Calcium,Total 8.8 mg/dL (7.6-11.0); Carbon Dioxide 22.1 mmol/L (20.0-29.0); Chloride 104 mmol/L (96-106); Globulin 3.0 g/dL (2.2-4.2); Glucose 252 mg/dL (70-99); Potassium 3.8 mmol/L (3.5-5.1); Pro- Brain NATRIURETIC PEPTIDE 165 pg/mL (<=900)
[2025-03-17 17:28] VITALS: BP 177/91; PULSE 58; RESP 18; O2SAT 98; BMI 52.9
[2025-03-17 17:57] LABS: Troponin T High Sensitivity 33 ng/L (<=22)
[2025-03-17 18:33] LABS: Prothrombin Time (Protime)PT. 26.6 SECONDS (11.7-14.9)
[2025-03-17] MEDS: 0.9% Normal Saline (1000mL) 1,000 ML 999 ML IV (18:41)
[2025-03-17 19:00] VITALS: BP 172/96; PULSE 55; RESP 17; O2SAT 100
[2025-03-17 20:21] VITALS: BP 172/96; PULSE 55; RESP 17; TEMP 36.6; O2SAT 100
== END 2025-03-17 20:30 | disposition home or self-care (01) ==
PROVIDERS: Emergency Provider Emergency Medicine; PCP Nurse Practitioner Family; Visit Provider Emergency Medicine
DX: R53.1 Weakness (principal); E11.42 Type 2 diabetes mellitus with diabetic polyneuropathy; E86.0 Dehydration; E78.5 Hyperlipidemia, unspecified; I25.10 Atherosclerotic heart disease of native coronary artery without angina pectoris; R42 Dizziness and giddiness; I10 Essential (primary) hypertension; M54.9 Dorsalgia, unspecified; Z83.3 Family history of diabetes mellitus; R00.2 Palpitations; K21.9 Gastro-esophageal reflux disease without esophagitis; Z86.73 Personal history of transient ischemic attack (TIA), and cerebral infarction without residual deficits; Z79.01 Long term (current) use of anticoagulants; R60.0 Localized edema; R94.31 Abnormal electrocardiogram [ECG] [EKG]; R00.1 Bradycardia, unspecified; I44.0 Atrioventricular block, first degree
CPT/HCPCS: 71045; 80053; 83880; 84484; 85025; 85610; 93005; 93971; 96360; 99284; A4216